=== PATIENT | male | born 1970 | race Hispanic/Latino ===

== ENCOUNTER 2020-05-19 10:50 | Emergency (ER) | payer OTHER ==
--- OUTSIDE RECORDS SUMMARY | 2020-05-19 11:36 | XMS REPORT | Summary of Care ---
:1970 Author Organization [facility] - [facility] Address [address] [place] [address] Care Team Providers Name Role Phone Ravindra Hua Primary Care Provider Encounter Details Date Type Department Care Team Description 05/06/2020 Letter (Out) [facility] unamia Message s Doctor Unassigned, No 301 [facility] [place] [address] [address] [facility] [phone] [place] [address] Allergies No Known Allergiesdocumented as of this encounter (statuses as of 05/06/2020) Medications Medication Sig Dispensed Refills Start Date End Date Status omeprazole (PRILOSEC) Take 1 Cap by 30 Cap 0 09/24/2015 Active 20 mg capsule mouth daily. metFORMIN (GLUCOPHAGE) 0 10/27/2015 Active 500 mg tablet lisinopril 0 10/27/2015 Active (PRINIVIL,ZESTRIL) 5 mg tablet atorvastatin (LIPITOR) 0 10/27/2015 Active 10 mg tablet acetaminophen-codeine 0 10/27/2015 Active (TYLENOL #3) 300-30 mg tablet azithromycin (ZITHROMAX Take 500 mg day 6 tablet 0 04/25/2017 Active Z-AP) 250 mg 1, then 250 mg tabletIndications: days 2 to 5. Acute maxillary sinusitis, recurrence not specified fluticasone (FLONASE) Use 2 Sprays in 16 g 0 04/25/2017 Active 50 mcg/actuation nasal each nostril sprayIndications: Acute daily. maxillary sinusitis, recurrence not specified documented as of this encounter (statuses as of 05/06/2020) Active Problems Problem Noted Date Left knee pain 10/29/2015 documented as of this encounter (statuses as of 05/06/2020) Social History Tobacco Use Types Packs/Day Years Used Date Never Smoker Smokeless Tobacco: Never Used Alcohol Use Drinks/Week oz/Week Comments Not Asked 0 Standard drinks or equivalent 0.0 Sex Assigned at Date Recorded Not on file documented as of this encounter Last Filed Vital Signs Not on filedocumented in this encounter Plan of Treatment Not on filedocumented as of this encounter Results Not on filedocumented in this encounter Insurance Payer Benefit Plan Subscriber ID Effective Dates Phone Address Type / Group [facility] [id number] 2018-Neel [phone] [address] PPO/POS [place] - OUT OF t 87 [id number] [place] [address] AETNA AETNA O [id number] 2015-Neel O t documented as of this encounter
--- OUTSIDE RECORDS SUMMARY | 2020-05-19 11:36 | XMS REPORT | Summary of Care ---
:1970 Author Organization [facility] - [facility] Address [address] [place] [address] Care Team Providers Name Role Phone Ravindra Hua Primary Care Provider Reason for Visit Reason Comments LAB covid testing- no symptoms Encounter Details Date Type Department Care Team Description 05/06/2020 Laboratory [address] [facility] Family NicoleMaura hernandez PA [address] [place] [address] [place] [address] Exposure to Medicine - [facility], Ad[facility] Fam Pob I SARS-associated [address] [place] [address] coronaviru s ([address] Dx) [place] [address] Allergies No Known Allergiesdocumented as of this [...] Assigned at Date Recorded Not on file COVID-19 Exposure Response Date Recorded In the last month, have you been in contact with No / Unsure 05/06/2020 1:46 PM CDT someone who was confirmed or suspected to have Coronavirus / COVID-19? documented as of this encounter Last Filed Vital Signs Not on filedocumented in this encounter Nursing Notes Alondra Coelho MA - 05/06/2020 1:20 PM CDTMedison Merino is a 49 year old male here for COVID Screening with a Nasopharyngeal Swab All droplet and contact precautions taken with appropriate PPE worn while interacting with patient. ? Goggles ? N95 Mask ? Gloves ? Gown Patient educated on plan of care for visit, swabbing technique, risks and benefits of test and length of time to receive results. Verbal consent obtained to perform test. CDC Fact Sheet for Patients nCoV Diagnostic Panel dated 10/06/2019 and Factsheet What to Do if Sick with COVID 19 09/16/19 provided. Patient swabbed per appropriate nasopharyngeal technique, and patient tolerated well. Patient was discharged from the testing clinic in stable condition. Alondra Mauro MA 05/06/2020 1:47 PM Bilate nares swabbed during COVID19 nasopharyngeal swab. documented in this encounter Plan of Treatment Name Type Priority Associated Diagnoses Order S chedule COVID-19 (PCR MOLECULAR LAB Routine Exposure to Expe cted: 05/06/2020, TESTING) SARS-associated Expires: coronavirus documented as of this encounter Results Not on filedocumented in this encounter Visit Diagnoses Diagnosis Exposure to SARS-associated coronavirus - Primary documented in this encounter Additional Health Concerns Infection Onset Date Last Indicated Resolved Time COVID-19 Rule Out 05/06/2020 05/06/2020 documented as of this encounter Insurance Payer Benefit Plan Subscriber ID Effective Dates Phone Address Type / Group [facility] [id number] 2018-Neel [phone] [address] PPO/POS [place] - OUT OF t 87 [id number] [place] [address] documented as of this encounter
--- OUTSIDE RECORDS SUMMARY | 2020-05-19 11:36 | XMS REPORT | Continuity of Care Document ---
:1970 Author Organization [facility] t Address [address] [place] [address] Care Team Providers Name Role Phone Lab, [facility] Fam Pob I Attending Clinician Unavailable Doctor Unassigned, Name Attending Clinician Unavailable Problems This patient has no known problems. Allergies, Adverse Reactions, Alerts This patient has no known allergies or adverse reactions. Medications This patient has no known medications. Procedures This patient has no known procedures. Encounters Start End Encounter Admission Attending Care Care Encounter Source Date/Time Date/Time Type Type Clinicians Facility Department ID 2020-05-06 2020-05-06 Laboratory Lab, [facility] [id number] 13:29:21 13:49:21 Only Fam Pob I Health [id number] [place] [id number] Professio [phone] [address]al [address] 2020-05-06 2020-05-06 Letter Doctor TAWANA [id number] 00:00:00 00:00:00 (Out) UnassignedPHILIP [id number] [place] [facility] [phone] [phone] Results This patient has no known results.
[2020-05-19] MEDS ORDERED: LIDOCAINE 1% MPF 5 ML VIAL ONE (12:48)
[2020-05-19] MEDS ORDERED: BUPIVACAINE 0.5% PF 10 ML VIAL ONE (12:48)
[2020-05-19] MEDS ORDERED: CEPHALEXIN 250 MG CAP ONE (12:48)
[2020-05-19] MEDS ORDERED: NA CHLORIDE 0.9% 500 ML ONE (12:48)
[2020-05-19] MEDS ORDERED: CEFAZOLIN/SWI 1gm 1 GM/10 ML SYR ONE (12:49)
[2020-05-19] MEDS ORDERED: TETANUS & DIPHTHERIA TOX,ADULT 0.5 ML VIAL ONE (12:49)
--- NOTE | 2020-05-19 12:56 | RAD REPORT ---
EXAM DESCRIPTION: RAD - Hand Right 3 View - 05/19/2020 11:46 am CLINICAL HISTORY: DEFORMITY, blunt force trauma distal third digit COMPARISON: No comparisons FINDINGS: Comminuted fracture of the distal phalanx third digit. There is a transverse fracture at t he tuft with a longitudinal fracture extending to near the articular surface. No distraction or angul ation deformity. The DIP joint shows no acute finding. There is flexion at the DIP joint and extension at the PIP joint of the third digit more pronounced t fan seen at the other fingers. A flexor tendon injury cannot be excluded. Elsewhere no acute bone or joint finding identifiable. IMPRESSION: Comminuted fracture of the distal phalanx third digit right hand. Flexion and extension configuration of the third digit suggests flexor tendon injury
--- NOTE | 2020-05-19 13:59 | EDPHYS ---
Physician Documentation [facility] Name: Jagdeep Sparks Jr Age: 49 yrs Sex: Male : 1970 Arrival Date: 05/19/2020 Time: 10:51 Bed 13 Private MD: ED Physician Demarco Bridges HPI: 05/19 13:48 This 49 yrs old Male presents to ER via Ambulatory with complaints of Finger paloma Injury, Crush Injury. 13:48 Trauma demographics: County: The injury occurred in [place]. Mechanism of injury: paloma Crush injury:. Associated injuries: The patient sustained decreased range of motion, laceration, 1 cm(s), obvious fracture, painful injury, swelling. Onset: The symptoms/episode began/occurred just prior to arrival. The patient has not experienced similar symptoms in the past. Historical: - Allergies: 11:38 No Known Allergies; bp - Home Meds: 11:38 Metformin Oral [Active]; losartan oral oral [Active]; bp - PMHx: 11:38 Diabetes - NIDDM; High Cholesterol; bp - Immunization history:: Adult Immunizations unknown. - Social history:: Smoking status: Patient denies any tobacco usage or history of. - Family history:: not pertinent. ROS: 13:48 Constitutional: Negative for fever, chills, and weight loss, Eyes: Negative for injury, paloma pain, redness, and discharge, ENT: Negative for injury, pain, and discharge, Neck: Negative for injury, pain, and swelling, Cardiovascular: Negative for chest pain, palpitations, and edema, Respiratory: Negative for shortness of breath, cough, wheezing, and pleuritic chest pain, Abdomen/GI: Negative for abdominal pain, nausea, vomiting, diarrhea, and constipation, Back: Negative for injury and pain, : Negative for injury, bleeding, discharge, and swelling, Skin: Negative for injury, rash, and discoloration, Neuro: Negative for headache, weakness, numbness, tingling, and seizure, Psych: Negative for depression, anxiety, suicide ideation, homicidal ideation, and hallucinations, Allergy/Immunology: Negative for hives, rash, and allergies, Endocrine: Negative for neck swelling, polydipsia, polyuria, polyphagia, and marked weight changes, Hematologic/Lymphatic: Negative for swollen nodes, abnormal bleeding, and unusual bruising. 13:48 MS/extremity: Positive for decreased range of motion, laceration, pain, swelling, tenderness, of the dorsal aspect of distal phalanx of right middle finger, palmar aspect of distal phalanx of right middle finger and right middle fingernail. Exam: 13:48 Constitutional: This is a well developed, well nourished patient who is awake, alert, paloma and in no acute distress. Head/Face: Normocephalic, atraumatic. Eyes: Pupils equal round and reactive to light, extra-ocular motions intact. Lids and lashes normal. Conjunctiva and sclera are non-icteric and not injected. Cornea within normal limits. Periorbital areas with no swelling, redness, or edema. ENT: Nares patent. No nasal discharge, no septal abnormalities noted. Tympanic membranes are normal and external auditory canals are clear. Oropharynx with no redness, swelling, or masses, exudates, or evidence of obstruction, uvula midline. Mucous membranes moist. Neck: Trachea midline, no thyromegaly or masses palpated, and no cervical lymphadenopathy. Supple, full range of motion without nuchal rigidity, or vertebral point tenderness. No Meningismus. Chest/axilla: Normal chest wall appearance and motion. Nontender with no deformity. No lesions are appreciated. Cardiovascular: Regular rate and rhythm with a normal S1 and S2. No gallops, murmurs, or rubs. Normal PMI, no JVD. No pulse deficits. Respiratory: Lungs have equal breath sounds bilaterally, clear to auscultation and percussion. No rales, rhonchi or wheezes noted. No increased work of breathing, no retractions or nasal flaring. Abdomen/GI: Soft, non-tender, with normal bowel sounds. No distension or tympany. No guarding or rebound. No evidence of tenderness throughout. Back: No spinal tenderness. No costovertebral tenderness. Full range of motion. Male : Normal genitalia with no discharge or lesions. Skin: Warm, dry with normal turgor. Normal color with no rashes, no lesions, and no evidence of cellulitis. Neuro: Awake and alert, GCS 15, oriented to person, place, time, and situation. Cranial nerves II-XII grossly intact. Motor strength 5/5 in all extremities. Sensory grossly intact. Cerebellar exam normal. Normal gait. Psych: Awake, alert, with orientation to person, place and time. Behavior, mood, and affect are within normal limits. 13:48 Musculoskeletal/extremity: Extremities: grossly normal except: decreased ROM, laceration, pain, tenderness, ROM: full active range of motion, full passive range of motion, Circulation is intact in all extremities. Sensation intact. Compartment Syndrome exam of affected extremity: is normal. Joints: All joints appear normal with full range of motion. Tendon exam: specific tendon testing normal through active and passive range of motion DVT Exam: No signs of deep vein thrombosis. no pain, no swelling, no tenderness, negative Homans' sign noted on exam, no appreciated bluish discoloration, no erythema, no increased warmth. Vital Signs: 11:20 BP 143 / 90; Pulse 61; Resp 16; Temp 98; Pulse Ox 100% ; bp 12:30 BP 131 / 85; Pulse 57; Resp 17; Pulse Ox 100% ; bp 13:27 BP 132 / 86; Pulse 66; Resp 16; Pulse Ox 100% ; bp 14:24 BP 130 / 84; Pulse 56; Resp 16; Temp 98; Pulse Ox 99% ; bp Procedures: 13:48 nail removed, nail bed secured with loop suture to pull through nail groove, figure 8 paloma to replace nail. Laceration: 13:48 Wound Repair of 1cm ( 0.4in ) subcutaneous laceration to right middle fingernail and paloma dorsal aspect of distal phalanx of right middle finger. Irregularly shaped.. Skin/tissue flap noted.. Distal neuro/vascular/tendon intact. Anesthesia: Digital block administered with 4 mls of 1% lidocaine, Digital block administered with 4 mls of 0.5% marcaine. Wound prep: Moderate cleansing with betadine by nv. Skin closed with 2 5-0 Prolene using interrupted sutures and sterile technique. Dressed with Neosporin, non-adherent dressing. Patient tolerated well. MDM: 12:12 Patient medically screened. [facility] 05/19 11:32 Order name: XRAY Hand RIGHT 3 View bp 05/19 12:57 Order name: RAD EDTX 05/19 12:14 Order name: Vicryl, Sutures; Complete Time: 12:48 [facility] 05/19 12:14 Order name: Prolene, Sutures; Complete Time: 12:48 [facility] 05/19 12:14 Order name: Dressing - Wound; Complete Time: 12:37 [facility] 05/19 12:14 Order name: Gloves, Sterile; Complete Time: 12:36 [facility] 05/19 12:14 Order name: Setup Suture Tray; Complete Time: 12:36 [facility] Administered Medications: 12:30 Drug: NS 0.9% 500 ml Route: IV; Rate: bolus; Site: left antecubital; bp 14:26 Follow up: IV Status: Completed infusion; IV Intake: 500ml bp 12:30 Drug: Ancef 1 grams Route: IVPB; Site: left antecubital; bp 14:26 Follow up: IV Status: Completed infusion; IV Intake: 50ml bp 12:30 Drug: KeFLEX 500 mg Route: PO; bp 14:05 Follow up: Response: No adverse reaction bp 12:30 Drug: Tetanus-Diphtheria Toxoid Adult 0.5 ml {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 Exp: 10/04/2021. Lot #: [id number]. } Route: IM; Site: right deltoid; 14:05 Follow up: Response: No adverse reaction bp 12:30 Drug: Bupivacaine (0.5 %) 5 ml {Note: at b/s.} Volume: 10 ml; Route: Infiltration; bp 12:30 Drug: Lidocaine (1 %) 5 ml Volume: 5 ml; Route: Infiltration; bp 14:05 Drug: Neosporin Ointment 1 application Route: Topical; Site: affected area; bp Disposition: 05/19/20 13:58 Discharged to Home. Impression: Laceration without foreign body of left middle finger with damage to nail, Displaced fracture of distal phalanx of right middle finger, Type 2 diabetes mellitus. - Condition is Stable. - Discharge Instructions: Type 2 Diabetes Mellitus, Diagnosis, Adult, Traumatic Finger Amputation, Finger Fracture, Fingernail or Toenail Removal, Adult, Finger Fracture, [id number], Type 2 Diabetes Mellitus, Diagnosis, Adult, [id number]. - Prescriptions for Keflex 500 mg Oral Capsule - take 1 capsule by ORAL route every 6 hours for 10 days; 40 capsule. Tylenol- Codeine #3 300-30 mg Oral Tablet - take 2 tablet by ORAL route every 6 hours As needed; 30 tablet. - Medication Reconciliation Form, Thank You Letter, Antibiotic Education, Prescription Opioid Use, Work release form form. - Follow up: Private Physician; When: 2 - 3 days; Reason: Recheck today's complaints, Continuance of care, Re-evaluation by your physician. Follow up: Rajiv Arce MD; When: 2 - 3 days; Reason: Recheck today's complaints, Re-evaluation by your physician. - Problem is new. - Symptoms have improved. Signatures: Dispatcher [employer] EDMS Demarco Bridges MD MD cha Peltier, Brian RN RN bp Corrections: (The following items were deleted from the chart) 14:00 13:58 05/19/2020 13:58 Discharged to Home. Impression: Laceration without foreign body paloma of left middle finger with damage to nail; Displaced fracture of distal phalanx of right middle finger. Condition is Stable. Forms are Medication Reconciliation Form, Thank You Letter, Antibiotic Education, Prescription Opioid Use. Follow up: Private Physician; When: 2 - 3 days; Reason: Recheck today's complaints, Continuance of care, Re-evaluation by your physician. Follow up: Rajiv Arce; When: 2 - 3 days; Reason: Recheck today's complaints, Re-evaluation by your physician. Problem is new. Symptoms have improved. [facility] 14:27 14:00 05/19/2020 13:58 Discharged to Home. Impression: Laceration without foreign body bp of left middle finger with damage to nail; Displaced fracture of distal phalanx of right middle finger; Type 2 diabetes mellitus. Condition is Stable. Discharge Instructions: Traumatic Finger Amputation, Finger Fracture, Fingernail or Toenail Removal, Adult, Finger Fracture, [id number]. Prescriptions for Keflex 500 mg Oral Capsule - take 1 capsule by ORAL route every 6 hours for 10 days; 40 capsule, Tylenol-Codeine #3 300-30 mg Oral Tablet - take 2 tablet by ORAL route every 6 hours As needed; 30 tablet. and Forms are Medication Reconciliation Form, Thank You Letter, Antibiotic Education, Prescription Opioid Use. Follow up: Private Physician; When: 2 - 3 days; Reason: Recheck today's complaints, Continuance of care, Re-evaluation by your physician. Follow up: Rajiv Arce; When: 2 - 3 days; Reason: Recheck today's complaints, Re-evaluation by your physician. Problem is new. Symptoms have improved. paloma
--- NOTE | 2020-05-19 13:59 | ER ---
Nurse's Notes [facility] Name: Jagdeep Sparks Jr Age: 49 yrs Sex: Male : 1970 Arrival Date: 05/19/2020 Time: 10:51 Bed 13 Private MD: Diagnosis: Laceration without foreign body of left middle finger with damage to nail;Displaced fracture of distal phalanx of right middle finger;Type 2 diabetes mellitus Presentation: 05/19 11:20 Chief complaint: Patient states: CRUSH INJURY TO RIGHT 3RD FINGER, DISTAL PHALANGE. bp Coronavirus screen: At this time, the client does not indicate any symptoms associated with coronavirus-19. Ebola Screen: No symptoms or risks identified at this time. Initial Sepsis Screen: Does the patient meet any 2 criteria? No. Patient's initial sepsis screen is negative. Does the patient have a suspected source of infection? No. Patient's initial sepsis screen is negative. Risk Assessment: Do you want to hurt yourself or someone else? Patient reports no desire to harm self or others. Onset of symptoms was May 19, 2020 at 10:10. 11:20 Method Of Arrival: Ambulatory bp 11:20 Acuity: RACHID 3 bp Triage Assessment: 11:20 General: Appears in no apparent distress. uncomfortable, Behavior is cooperative, bp appropriate for age, anxious. Pain: Complains of pain in right middle finger. EENT: No deficits noted. Neuro: Level of Consciousness is awake, alert, obeys commands, Oriented to Appropriate for age. Cardiovascular: No deficits noted. Respiratory: No deficits noted. GI: No signs and/or symptoms were reported involving the gastrointestinal system. : No signs and/or symptoms were reported regarding the genitourinary system. Derm: No deficits noted. Musculoskeletal: Circulation, motion, and sensation intact. Range of motion: intact in all extremities. Injury Description: Crush injury sustained to right middle finger. Historical: - Allergies: 11:38 No Known Allergies; bp - Home Meds: 11:38 Metformin Oral [Active]; losartan oral oral [Active]; bp - PMHx: 11:38 Diabetes - NIDDM; High Cholesterol; bp - Immunization history:: Adult Immunizations unknown. - Social history:: Smoking status: Patient denies any tobacco usage or history of. - Family history:: not pertinent. Screenin:44 Abuse screen: Denies threats or abuse. Denies injuries from another. Nutritional bp screening: No deficits noted. Tuberculosis screening: No symptoms or risk factors identified. Fall Risk None identified. Assessment: 10:20 General: SEE TRIAGE NOTE. bp 12:30 Reassessment: SALINE DRESSING IN PLACE, LAC SETUP AT B/S FOR REPAIR. bp 13:27 Reassessment: ATTENDING AT B/S FOR WOUND REPAIR. bp 14:24 Reassessment: PT D/C HOME AMBULATORY, DX WITH LEFT MIDDLE FINGER LACERATION. bp Vital Signs: 11:20 BP 143 / 90; Pulse 61; Resp 16; Temp 98; Pulse Ox 100% ; bp 12:30 BP 131 / 85; Pulse 57; Resp 17; Pulse Ox 100% ; bp 13:27 BP 132 / 86; Pulse 66; Resp 16; Pulse Ox 100% ; bp 14:24 BP 130 / 84; Pulse 56; Resp 16; Temp 98; Pulse Ox 99% ; bp ED Course: 10:51 Patient arrived in ED. ag5 11:28 Ravindra Philip, RN is Primary Nurse. bp 11:37 Triage completed. bp 11:42 Arm band placed on. bp 11:44 Patient has correct armband on for positive identification. Bed in low position. Call bp light in reach. Side rails up X2. 12:12 Demarco Bridges MD is Attending Physician. paloma 12:15 Inserted saline lock: 22 gauge in left antecubital area, using aseptic technique. bp 13:55 Rajiv Arce MD is Referral Physician. paloma 14:00 Assist provider with laceration repair on right middle finger that was 2.5 cm. or less bp using sutures. Set up tray. Performed by Demarco Bridges MD Dressed with Xeroform, Patient tolerated well. 14:25 IV discontinued, intact, bleeding controlled, No redness/swelling at site. Pressure bp dressing applied. 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 Exp: bp 10/04/2021. Lot #: [id number]. } Route: IM; Site: right deltoid; 14:05 Follow up: Response: No adverse reaction bp 12:30 Drug: Bupivacaine (0.5 %) 5 ml {Note: at b/s.} Volume: 10 ml; Route: Infiltration; bp 12:30 Drug: Lidocaine (1 %) 5 ml Volume: 5 ml; Route: Infiltration; bp 14:05 Drug: Neosporin Ointment 1 application Route: Topical; Site: affected area; bp Intake: 14:26 IV: 50ml; Total: 50ml. bp 14:26 IV: 500ml; Total: 550ml. bp Outcome: 13:58 Discharge ordered by . paloma 14:25 Discharged to home ambulatory. bp 14:25 Condition: stable 14:25 Discharge instructions given to patient, Instructed on discharge instructions, follow up and referral plans. medication usage, wound care, Demonstrated understanding of instructions, follow-up care, medications, wound care, Prescriptions given X 2. 14:27 Patient left the ED. bp Signatures: Demarco Bridges MD MD cha Peltier, Brian, RN RN Jonathan Riojas ag5 Corrections: (The following items were deleted from the chart) 11:44 10:20 General: SEE TRIAGE NOTE. bp bp
[2020-05-19 15:28] VITALS: TEMP 98
[2020-05-19 15:34] VITALS: BP 130/84; O2SAT 99
== END 2020-05-19 14:27 | disposition home or self-care (01) ==
LOC: ER 10:50
PROC: 0JQJ0ZZ Repair Right Hand Subcutaneous Tissue and Fascia, Open Approach (ICD-10-PCS; principal; 2020-05-19)
PROC: 0HTQXZZ Resection of Finger Nail, External Approach (ICD-10-PCS; 2020-05-19)
DX: S62.632A Displaced fracture of distal phalanx of right middle finger, initial encounter for closed fracture (principal); X58.XXXA Exposure to other specified factors, initial encounter; Y93.9 Activity, unspecified; Y92.89 Other specified places as the place of occurrence of the external cause; Z23 Encounter for immunization; E11.9 Type 2 diabetes mellitus without complications; E78.00 Pure hypercholesterolemia, unspecified
CPT/HCPCS: 90471; 90714; 96365; 96366; 99284; J0690; J7040

== ENCOUNTER 2020-06-03 09:15 | Emergency (ER) | payer BC, OTHER ==
[2020-06-03 10:02] LABS: Absolute Lymphocytes (CBC) 1.5 K/uL (0.7-4.9); Basophils % 0.6 % (0-1.3); Hematocrit 43.9 % (39.6-49.0); Lymphocytes % 28.8 % (15.3-44.8); MPV 8.7 fL (7.6-11.3); RBC Red Blood Cell Count 4.73 M/uL (4.33-5.43)
--- OUTSIDE RECORDS SUMMARY | 2020-06-03 10:18 | XMS REPORT | Summary of Care ---
:1970 Author Organization [facility] Address [address] [place] [address] Care Team Providers Name Role Phone Ravindra Hua Primary Care Provider Encounter Details Date Type Department Care Team Description 05/06/2020 Letter (Out) [facility] [employer] Message s Doctor Unassigned, No 301 [facility] [place] [address] [address] [facility] [phone] [place] [address] Allergies No Known Allergiesdocumented as of this [...] Effective Dates Phone Address Type / Group [facility] [id number] 2018-Neel [phone] [address] PPO/POS [place] - OUT OF t 87 [id number] [place] [address] AETNA AETNA O [id number] 2015-Neel O t documented as of this encounter
--- OUTSIDE RECORDS SUMMARY | 2020-06-03 10:18 | XMS REPORT | Continuity of Care Document ---
:1970 Author Organization [facility] t Address [address] [place] [address] Care Team Providers Name Role Phone Lab, Adc Fam Pob I Attending Clinician Unavailable Doctor [...] Facility Department ID 2020-05-06 2020-05-06 Laboratory Lab, [facility] [id number] 13:29:21 13:49:21 Only Fam Pob I Health [id number] [place] [id number] Professio [phone] nal [address] 2020-05-06 2020-05-06 Letter Doctor TAWANA [id number] 00:00:00 00:00:00 (Out) UnassignedPHILIP [id number] [place] [facility] [id number] [phone] 044 Results This patient has no known results.
--- OUTSIDE RECORDS SUMMARY | 2020-06-03 10:18 | XMS REPORT | Summary of Care ---
:1970 Author Organization [facility] Address [address] [place] [id number] Care Team Providers Name Role Phone Ravindra Hua Primary Care Provider Reason for Visit Reason Comments LAB covid testing- no symptoms Encounter Details Date Type Department Care Team Description 05/06/2020 Laboratory Only [facility] Family NicoleMaura hernandez PA [address] [place] [address] [place] [address] Exposure to Medicine - [place] [facility], Adc Fam Pob I SARS-associated [address] [place] [address] coronaviru s ([address] Dx) [place] [address] Allergies No Known Allergiesdocumented as [...] Phone Address Type / Group [employer] [facility] [id number] 2018-Neel [phone] [address] PPO/POS [place] - OUT OF t [id number] [place] [address] documented as of this encounter
[2020-06-03 10:19] LABS: ALT/SGPT 31 U/L (12-78); AST/SGOT 17 U/L (15-37); Albumin 4.1 g/dL (3.4-5.0); Alkaline Phosphatase 71 U/L (45-117); BUN Blood Urea Nitrogen 17 mg/dL (7-18); Bicarbonate 28 mmol/L (21-32); Bilirubin Direct 0.2 mg/dL (0-0.2); Bilirubin Total 0.7 mg/dL (0.2-1.0); Glucose Level 116 mg/dL (74-106); Lipase 111 U/L (73-393); Potassium 4.1 mmol/L (3.5-5.1); Protein, Total 7.8 g/dL (6.4-8.2); Sodium Level 139 mmol/L (136-145)
--- NOTE | 2020-06-03 10:32 | RAD REPORT ---
EXAM DESCRIPTION: CTAbdomen Pelvis W Contrast - 06/03/2020 10:14 am CLINICAL HISTORY: Abdominal pain. ABD PAIN COMPARISON: No comparisons TECHNIQUE: Biphasic CT imaging of the abdomen and pelvis was performed with 100 ml non-ionic IV cont rast. All CT scans are performed using dose optimization technique as appropriate and may include automated exposure control or mA/KV adjustment according to patient size. FINDINGS: 6 mm noncalcified pulmonary nodule is seen in the right lower lobe. Mild fatty liver infiltration pattern is seen. Tiny low-density hepatic lesion in the right lobe ante riorly measures 4 mm, too small to fully characterize but likely benign. The spleen, pancreas, adrena l glands and kidneys are within normal limits. No bowel obstruction, free air, free fluid or abscess. Subtle inflammatory changes surrounding the di stal descending colon seen in the left lower quadrant suggesting a very early/mild acute diverticulit is pattern. No abscess or other complication. The appendix is normal. No evidence of significant lym phadenopathy. No suspicious bony findings. IMPRESSION: Mild acute diverticulitis involving the distal descending colon is noted. No complicatio n is evident. 6 mm noncalcified nodule right lower lobe is nonspecific. Followup nonemergent CT chest assessment wo uld be advised.
--- NOTE | 2020-06-03 10:42 | ER ---
Nurse's Notes [facility] Name: Jagdeep Sparks Jr Age: 49 yrs Sex: Male : 1970 Arrival Date: 06/03/2020 Time: :[address] Private MD: Diagnosis: Acute Diverticulitis Presentation: 06/03 09:27 Chief complaint: Lower abdominal pain and diarrhea x 2 days. Coronavirus screen: Client hb presents with at least one sign or symptom that may indicate coronavirus-19. Standard/surgical mask placed on the client. Provider contacted for isolation considerations. Ebola Screen: No symptoms or risks identified at this time. Initial Sepsis Screen: Does the patient meet any 2 criteria? No. Patient's initial sepsis screen is negative. Does the patient have a suspected source of infection? No. Patient's initial sepsis screen is negative. Risk Assessment: Do you want to hurt yourself or someone else? Patient reports no desire to harm self or others. Onset of symptoms was June 02, 2020. 09:27 Method Of Arrival: Ambulatory hb 09:27 Acuity: RACHID 3 hb Historical: - Allergies: :28 No Known Allergies; hb - Home Meds: :28 losartan Oral [Active]; Metformin Oral [Active]; hb - PMHx: :28 Diabetes - NIDDM; High Cholesterol; hb - PSHx: :28 None; hb - Immunization history:: Adult Immunizations up to date. - Social history:: Smoking status: Patient denies any tobacco usage or history of. Screenin:07 Abuse screen: Denies threats or abuse. Nutritional screening: No deficits noted. ll1 Tuberculosis screening: No symptoms or risk factors identified. Fall Risk IV access (20 points). Total Guo Fall Scale indicates No Risk (0-24 pts). Assessment: 10:06 General: Appears in no apparent distress. Behavior is calm, cooperative. Pain: ll1 Complains of pain in lower abdomen Quality of pain is described as aching. Neuro: No deficits noted. Cardiovascular: No deficits noted. Respiratory: No deficits noted. GI: Abdomen is flat, Bowel sounds present X 4 quads. Abd is soft and non tender X 4 quads. Reports lower abdominal pain, diarrhea. 11:07 Reassessment: Patient and/or family updated on plan of care and expected duration. Pain ll1 level reassessed. Vital Signs: 09:27 BP 144 / 88; Pulse 65; Resp 16; Temp 97.8; Pulse Ox 100% on R/A; Weight 97.98 kg; hb Height 6 ft. (182.88 cm); Pain 8/10; 11:07 BP 123 / 75; Pulse 58; Resp 16; Pulse Ox 100% ; Pain 0/10; ll1 09:27 Body Mass Index 29.29 (97.98 kg, 182.88 cm) hb ED Course: 09:19 Patient arrived in ED. ds1 09:25 Guilherme Kimball PA is PHCP. jmm 09:25 Demarco Bridges MD is Attending Physician. jmm 09:28 Triage completed. hb 09:28 Arm band placed on. hb 09:51 Syd Clay RN is Primary Nurse. ll1 09:52 Inserted saline lock: 20 gauge in right antecubital area, using aseptic technique. hb Blood collected. 10:[address] via wheelchair. jg6 10:08 Patient has correct armband on for positive identification. Bed in low position. Call ll1 light in reach. Side rails up X 1. Pulse ox on. NIBP on. 10:13 CT Abd/Pelvis - IV Contrast Only In Process Unspecified. EDMS 10:14 CT completed. Patient tolerated procedure well. Patient moved to CT via wheelchair. jg6 Patient moved back from CT. 11:07 IV discontinued, intact, bleeding controlled, No redness/swelling at site. Pressure ll1 dressing applied. 11:08 No provider procedures requiring assistance completed. ll1 Administered Medications: No medications were administered Outcome: 10:41 Discharge ordered by . scottie 11:08 Discharged to home ambulatory. ll1 11:08 Condition: stable 11:08 Discharge instructions given to patient, Instructed on discharge instructions, follow up and referral plans. medication usage, Demonstrated understanding of instructions, follow-up care, medications, Prescriptions given X 3. 11:08 Patient left the ED. ll1 Signatures: Dispatcher [employer] EDMS Guilherme Kimball PA PA jmm Sanford, Demi ds1 Khadra Win RN RN John Christa jg6 Syd Clay, TIFFANY ALLEN [facility]
--- NOTE | 2020-06-03 10:42 | EDPHYS ---
Physician Documentation [facility] Name: Jagdeep Sparks Jr Age: 49 yrs Sex: Male : 1970 Arrival Date: 06/03/2020 Time: 09:[address] Private MD: ED Physician Demarco Bridges HPI: 06/03 09:44 This 49 yrs old Male presents to ER via Ambulatory with complaints of jmm Abdominal Pain. 09:44 The patient presents with abdominal pain in the lower abdomen. Onset: The jmm symptoms/episode began/occurred gradually, 2 day(s) ago. The symptoms do not radiate. Associated signs and symptoms: Pertinent positives: testicular pain, Pertinent negatives: fever. The symptoms are described as achy. This is a 49 year old male with a history of DM, HLP that presents to the ED with complaints of lower abdominal pain beginning this past Monday. Patient states yesterday he noticed scrotal swelling which has now resolved. Pain is mainly located in the suprapubic region but with radiate to the right lower and left lower quadrants of his abdomen. Denies vomiting. Has had some episodes of diarrhea. . Historical: - Allergies: : No Known Allergies; hb - Home Meds: : losartan Oral [Active]; Metformin Oral [Active]; hb - PMHx: : Diabetes - NIDDM; High Cholesterol; hb - PSHx: : None; hb - Immunization history:: Adult Immunizations up to date. - Social history:: Smoking status: Patient denies any tobacco usage or history of. ROS: 09:44 Constitutional: Negative for fever, chills, and weight loss, Cardiovascular: Negative jmm for chest pain, palpitations, and edema, Respiratory: Negative for shortness of breath, cough, wheezing, and pleuritic chest pain. 09:44 Abdomen/GI: Positive for abdominal pain, diarrhea. 09:44 All other systems are negative. Exam: :44 Constitutional: This is a well developed, well nourished patient who is awake, alert, jmm and in no acute distress. Head/Face: atraumatic. Eyes: EOMI, no conjunctival erythema appreciated ENT: Moist Mucus Membranes Neck: Trachea midline, Supple Chest/axilla: Normal chest wall appearance and motion. Cardiovascular: Regular rate and rhythm. No edema appreciated Respiratory: Normal respirations, no respiratory distress appreciated 09:44 Abdomen/GI: Inspection: abdomen appears normal, Bowel sounds: normal, Palpation: soft, mild abdominal tenderness, in the suprapubic area. 09:44 : Male external genitalia: normal. 09:44 Musculoskeletal/extremity: ROM: intact in all extremities. 09:44 Skin: Appearance: Color: normal in color. 09:44 Neuro: Orientation: is normal, Mentation: is normal, Memory: is normal. 09:44 Psych: Behavior/mood is pleasant, cooperative. Vital Signs: 09:27 BP 144 / 88; Pulse 65; Resp 16; Temp 97.8; Pulse Ox 100% on R/A; Weight 97.98 kg; hb Height 6 ft. (182.88 cm); Pain 8/10; 11:07 BP 123 / 75; Pulse 58; Resp 16; Pulse Ox 100% ; Pain 0/10; ll1 09:27 Body Mass Index 29.29 (97.98 kg, 182.88 cm) hb MDM: 09:38 Patient medically screened. [place] 10:40 Data reviewed: vital signs, nurses notes. Counseling: I had a detailed discussion with scottie the patient and/or guardian regarding: the historical points, exam findings, and any diagnostic results supporting the discharge/admit diagnosis, lab results, radiology results, the need for outpatient follow up, to return to the emergency department if symptoms worsen or persist or if there are any questions or concerns that arise at home. ED course: Patient is alert and non toxic in appearance in the ED. Patient is advised to follow up with pcp and otherwise given strict return precautions. Patient understood and agrees with the plan of care. . 06/03 09:44 Order name: Basic Metabolic Panel; Complete Time: 10:24 [facility] 06/03 09:44 Order name: CBC with Diff; Complete Time: 10:06 [facility] 06/03 09:44 Order name: Hepatic Function; Complete Time: 10:24 [facility] 06/03 09:44 Order name: Lipase; Complete Time: 10:24 [facility] 06/03 09:44 Order name: IV Saline Lock; Complete Time: 11:07 [facility] 06/03 09:44 Order name: CT Abd/Pelvis - IV Contrast Only; Complete Time: 10:39 [facility] 06/03 09:44 Order name: Labs collected and sent; Complete Time: 11:07 rupal Administered Medications: No medications were administered Disposition: 06/04 05:29 Co-signature as Attending Physician, Demarco Bridges MD I agree with the assessment and [facility] plan of care. Disposition: 06/03/20 10:41 Discharged to Home. Impression: Acute Diverticulitis. - Condition is Stable. - Discharge Instructions: Diverticulitis. - Prescriptions for Cipro 500 mg Oral Tablet - take 1 tablet by ORAL route every 12 hours for 10 days; 20 tablet. Flagyl 500 mg Oral Tablet - take 1 tablet by ORAL route every 6 hours for 10 days; 40 tablet. Ultracet 37.5- 325 mg Oral Tablet - take 1 tablet by ORAL route every 6 hours - for up to 5 days; do not exceed 8 tablets per day.; 20 tablet. - Medication Reconciliation Form, Thank You Letter, Antibiotic Education, Prescription Opioid Use form. - Follow up: Private Physician; When: 2 - 3 days; Reason: Recheck today's complaints, Continuance of care, Re-evaluation by your physician. Signatures: Dispatcher [employer] EDDemarco Hammond MD MD cha Mickail, Joel, PA PA Khadra Donis, RN RN Syd Wilde RN RN ll1 Corrections: (The following items were deleted from the chart) 06/03 11:07 09:44 Urine Dipstick-Ancillary ordered. [facility] ll1 11:08 10:41 06/03/2020 10:41 Discharged to Home. Impression: Acute Diverticulitis. Condition ll1 is Stable. Forms are Medication Reconciliation Form, Thank You Letter, Antibiotic Education, Prescription Opioid Use. Follow up: Private Physician; When: 2 - 3 days; Reason: Recheck today's complaints, Continuance of care, Re-evaluation by your physician. [facility]
[2020-06-03 12:52] VITALS: TEMP 97.8; O2SAT 100
[2020-06-03 12:54] VITALS: BP 123/75
== END 2020-06-03 11:08 | disposition home or self-care (01) ==
LOC: ER 09:15
DX: K57.32 Diverticulitis of large intestine without perforation or abscess without bleeding (principal); E78.00 Pure hypercholesterolemia, unspecified; E11.9 Type 2 diabetes mellitus without complications
CPT/HCPCS: 85025; 80048; 36415; 82565; 80076; 83690; 74177; 99284; Q9967

== ENCOUNTER 2020-08-26 16:22 | Observation (INO) | payer BC ==
--- OUTSIDE RECORDS SUMMARY | 2020-08-26 16:31 | XMS REPORT | Continuity of Care Document ---
:1970 Author Organization [facility] t Address [address] [place] [address] Care Team Providers Name Role Phone Lab, [facility] Fam Pob I Attending Clinician Unavailable Doctor [...] Facility Department ID 2020-05-06 2020-05-06 Laboratory Lab, [facility] [id number] 13:29:21 13:49:21 Only Fam Pob I Health [id number] [place] [id number] Professio [phone] nal [address] 2020-05-06 2020-05-06 Letter Doctor TAWANA [id number] 00:00:00 00:00:00 (Out) UnassignedPHILIP [id number] [facility] [phone] 044 Results This patient has no known results.
[2020-08-26 18:55] LABS: Absolute Lymphocytes (CBC) 2.1 K/uL (0.7-4.9); Basophils % 0.9 % (0-1.3); Hematocrit 44.2 % (39.6-49.0); Lymphocytes % 33.5 % (15.3-44.8); MPV 8.7 fL (7.6-11.3); RBC Red Blood Cell Count 4.78 M/uL (4.33-5.43)
[2020-08-26 19:06] LABS: Protime INR 1.09
[2020-08-26 19:18] LABS: ALT/SGPT 25 U/L (12-78); AST/SGOT 12 U/L (15-37); Albumin 4.3 g/dL (3.4-5.0); Alkaline Phosphatase 81 U/L (45-117); BUN Blood Urea Nitrogen 18 mg/dL (7-18); Bicarbonate 31 mmol/L (21-32); Bilirubin Direct 0.1 mg/dL (0-0.2); Bilirubin Total 0.4 mg/dL (0.2-1.0); Glucose Level 99 mg/dL (74-106); Magnesium 2.3 mg/dL (1.8-2.4); NT PRO-BNP 37 pg/mL (<125); Potassium 3.9 mmol/L (3.5-5.1); Protein, Total 7.9 g/dL (6.4-8.2); Sodium Level 141 mmol/L (136-145); Troponin (Emerg Dept Use Only) < 0.02 ng/mL (0.0-0.045)
--- NOTE | 2020-08-26 20:04 | EDPHYS ---
Physician Documentation [facility] Name: Jagdeep Sparks Jr Age: 49 yrs Sex: Male : 1970 Arrival Date: 08/26/2020 Time: 16:24 Bed 26 Private MD: ED Physician Joni Arroyo HPI: 08/26 18:42 This 49 yrs old Male presents to ER via Ambulatory with complaints of Shoulder jmm Pain, Chest Discomfort. 18:42 The patient or guardian complains of pain. Onset: The symptoms/episode began/occurred jmm gradually, 4 day(s) ago. Modifying factors: the symptoms are alleviated by nothing. The symptoms are aggravated by nothing. Associated signs and symptoms: Pertinent negatives:. This is a 49 year old male with a history of HLP, DM, HTN that presents to the ED with complaints of substernal chest pain which began approx 4 days ago. Worse in the AM, improves throughout the day. patient d/c medications on Monday with some slight relief. . Historical: - Allergies: 16:36 No Known Allergies; ll1 - PMHx: 16:36 Diabetes - NIDDM; High Cholesterol; ll1 - PSHx: 16:36 knee sx; ll1 - Immunization history:: Flu vaccine is not up to date. - Social history:: Smoking status: Patient denies any tobacco usage or history of. ROS: 18:42 Eyes: Negative for injury, pain, redness, and discharge. jmm 18:42 Neck: Positive for 18:42 Neck: Positive for radiated pain. 18:42 Cardiovascular: Positive for chest pain. 18:42 All other systems are negative. Exam: 18:42 Constitutional: This is a well developed, well nourished patient who is awake, alert, jmm and in no acute distress. Head/Face: atraumatic. Eyes: EOMI, no conjunctival erythema appreciated ENT: Moist Mucus Membranes Neck: Trachea midline, Supple Chest/axilla: Normal chest wall appearance and motion. Cardiovascular: Regular rate and rhythm. No edema appreciated Respiratory: Normal respirations, no respiratory distress appreciated Abdomen/GI: Non distended, soft Back: Normal ROM Skin: General appearance color normal MS/ Extremity: Moves all extremities, no obvious deformities appreciated, no edema noted to the lower extremities Neuro: Awake and alert, normal gait Psych: Behavior is normal, Mood is normal, Patient is cooperative and pleasant Vital Signs: 16:32 BP 139 / 100; Pulse 72; Resp 17; Temp 98.0; Pulse Ox 99% ; Weight 98.43 kg; Height 6 ll1 ft. 0 in. (182.88 cm); Pain 2/10; 18:30 BP 118 / 90 [place] (auto/reg); Pulse 61; Resp 13 S; Temp 98.0(O); Pulse Ox 100% on R/A; jp3 Pain 0/10; 20:21 BP 133 / 87; Pulse 62; Resp 14; Pulse Ox 100% on R/A; vg1 16:32 Body Mass Index 29.43 (98.43 kg, 182.88 cm) ll1 MDM: 19:06 Patient medically screened. [facility] 20:03 Data reviewed: vital signs, nurses notes. Counseling: I had a detailed discussion with scottie the patient and/or guardian regarding: the historical points, exam findings, and any diagnostic results supporting the discharge/admit diagnosis, lab results, radiology results, the need for further work-up and treatment in the hospital. ED course: I discussed the patient with Xander Corado whom accepted the patient to Dr. Get dan. 08/26 18:42 Order name: Basic Metabolic Panel; Complete Time: 19:27 [facility] 08/26 18:42 Order name: CBC with Diff; Complete Time: 19:06 [facility] 08/26 18:42 Order name: LFT's; Complete Time: 19:27 [facility] 08/26 18:42 Order name: Magnesium; Complete Time: 19:27 [facility] 08/26 18:42 Order name: NT PRO-BNP; Complete Time: 19:27 [facility] 08/26 18:42 Order name: PT-INR; Complete Time: 19:27 [facility] 08/26 18:42 Order name: Troponin (emerg Dept Use Only); Complete Time: 19:27 [facility] 08/26 18:42 Order name: XRAY Chest (1 view); Complete Time: 20:34 [facility] 08/26 18:42 Order name: EKG; Complete Time: 18:43 [facility] 08/26 21:26 Order name: COVID-19 : Document "Date of Symptom Onset" if Symptomatic. 2 08/26 21:49 Order name: [facility] 08/26 22:39 Order name: SARS-COV-2 RT PCR [facility] 08/26 18:42 Order name: Cardiac monitoring; Complete Time: 18:43 [facility] 08/26 18:42 Order name: EKG - Nurse/Tech; Complete Time: 18:43 [facility] 08/26 18:42 Order name: IV Saline Lock; Complete Time: 19:14 [facility] 08/26 18:42 Order name: Labs collected and sent; Complete Time: 19:14 [facility] 08/26 18:42 Order name: O2 Per Protocol; Complete Time: 18:43 [facility] 08/26 18:42 Order name: O2 Sat Monitoring; Complete Time: 18:43 [facility] Administered Medications: 20:20 Drug: Aspirin Chewable Tablet 324 mg Route: PO; vg1 23:00 Follow up: Response: No adverse reaction vg1 Disposition: 08/27 05:58 Co-signature as Attending Physician, Joni Arroyo MD I agree with the assessment and kdr plan of care. Disposition: 08/26/20 20:04 Hospitalization ordered by Jeremias Deutsch for Observation. Preliminary diagnosis is Chest pain, unspecified. - Bed requested for Telemetry/MedSurg (observation). - Status is Observation. vg1 - Condition is Stable. - Problem is new. - Symptoms are unchanged. Signatures: Dispatcher [facility] Lisa Gonzalez, RN Joni Peterson MD MD [facility] Guilherme Kimball PA PA [facility] Caridad Lopez, RN RN vg1 Syd Clay RN RN ll1 Corrections: (The following items were deleted from the chart) 08/26 20:34 20:04 Hospitalization Ordered by Jeremias Deutsch DO for Observation. Preliminary diagnosis is Chest pain, unspecified. Bed requested for Telemetry/MedSurg (observation). Status is Observation. Condition is Stable. Problem is new. Symptoms are unchanged. [facility] 23:04 20:34 08/26/2020 20:04 Hospitalization Ordered by Jeremias Deutsch DO for Observation. vg1 Preliminary diagnosis is Chest pain, unspecified. Bed requested for Telemetry/MedSurg (observation). Status is Observation. Condition is Stable. Problem is new. Symptoms are unchanged.
--- NOTE | 2020-08-26 20:04 | ER ---
Nurse's Notes [facility] Name: Jagdeep Sparks Jr Age: 49 yrs Sex: Male : 1970 Arrival Date: 08/26/2020 Time: 16:24 Bed 26 Private MD: Diagnosis: Chest pain, unspecified Presentation: 08/26 16:32 Chief complaint: Patient states: CP, shoulder pains since Monday. Stopped taking his ll1 BP pills Monday, everything got slightly better. But still feels the CP And shoulder pains. + dizzy at times. Coronavirus screen: Client denies travel out of the [place] in the last 14 days. At this time, the client does not indicate any symptoms associated with coronavirus-19. Ebola Screen: Patient denies travel to an Ebola-affected area in the 21 days before illness onset. Initial Sepsis Screen: Does the patient meet any 2 criteria? No. Patient's initial sepsis screen is negative. Does the patient have a suspected source of infection? No. Patient's initial sepsis screen is negative. Risk Assessment: Do you want to hurt yourself or someone else? Patient reports no desire to harm self or others. Onset of symptoms was August 22, 2020. 16:32 Method Of Arrival: Ambulatory ll1 16:32 Acuity: RACHID 3 ll1 Historical: - Allergies: 16:36 No Known Allergies; ll1 - PMHx: 16:36 Diabetes - NIDDM; High Cholesterol; ll1 - PSHx: 16:36 knee sx; ll1 - Immunization history:: Flu vaccine is not up to date. - Social history:: Smoking status: Patient denies any tobacco usage or history of. Screenin:54 Abuse screen: Denies threats or abuse. Nutritional screening: No deficits noted. vg1 Tuberculosis screening: No symptoms or risk factors identified. Fall Risk No fall in past 12 months (0 pts). No secondary diagnosis (0 pts). IV access (20 points). Ambulatory Aid- None/Bed Rest/Nurse Assist (0 pts). Gait- Normal/Bed Rest/Wheelchair (0 pts) Mental Status- Oriented to own ability (0 pts). Total Guo Fall Scale indicates No Risk (0-24 pts). Assessment: 18:52 General: Appears in no apparent distress. comfortable, Behavior is calm, cooperative. vg1 Pain: Complains of pain in neck, right and left shoulders Pain radiates to right arm and left arm Pain currently is 2 out of 10 on a pain scale. at worst was 8 out of 10 on a pain scale. Neuro: Level of Consciousness is awake, alert, obeys commands, Oriented to person, place, time, situation. Neuro: Reports dizziness, Denies headache. Cardiovascular: Patient's skin is warm and dry. Respiratory: Airway is patent Respiratory effort is even, unlabored, Respiratory pattern is regular, symmetrical. GI: Patient currently denies diarrhea, nausea, vomiting. : No signs and/or symptoms were reported regarding the genitourinary system. EENT: Denies blurred vision. Derm: Skin is intact, is healthy with good turgor. Musculoskeletal: Circulation, motion, and sensation intact. 20:21 Reassessment: Patient appears in no apparent distress at this time. Patient and/or vg1 family updated on plan of care and expected duration. Pain level reassessed. Patient is alert, oriented x 3, equal unlabored respirations, skin warm/dry/pink. Patient states Left shoulder pain 4/10. Provider notified. 21:11 Reassessment: Attempted to call report. vg1 Vital Signs: 16:32 BP 139 / 100; Pulse 72; Resp 17; Temp 98.0; Pulse Ox 99% ; Weight 98.43 kg; Height 6 ll1 ft. 0 in. (182.88 cm); Pain 2/10; 18:30 BP 118 / 90 LA (auto/reg); Pulse 61; Resp 13 S; Temp 98.0(O); Pulse Ox 100% on R/A; jp3 Pain 0/10; 20:21 BP 133 / 87; Pulse 62; Resp 14; Pulse Ox 100% on R/A; vg1 16:32 Body Mass Index 29.43 (98.43 kg, 182.88 cm) ll1 ED Course: 16:24 Patient arrived in ED. ds1 16:35 Triage completed. ll1 16:36 Arm band placed on. ll1 16:44 EKG completed in triage. Results shown to MD. ll1 16:44 EKG done, by ED staff, reviewed by Guilherme HIGHTOWER. jp3 18:31 Guilherme Kimball PA is PHCP. [facility] 18:31 Joni Arroyo MD is Attending Physician. [facility] 18:35 Bed in low position. Call light in reach. Side rails up X 1. Verbal reassurance given. jp3 surveillance monitor on. Pulse ox on. NIBP on. 18:35 Patient maintains SpO2 saturation greater than 95% on room air. jp3 18:43 Caridad Lopez, RN is Primary Nurse. vg1 18:45 Initial lab(s) drawn, by me, sent to lab. Inserted saline lock: 20 gauge in right jp3 antecubital area, using aseptic technique. Blood collected. 19:14 X-ray(s) taken. jp3 19:56 XRAY Chest (1 view) In Process Unspecified. EDMS 20:04 Jeremias Deutsch DO is Hospitalizing Provider. [facility] 22:58 No provider procedures requiring assistance completed. Patient admitted, IV remains in vg1 place. Administered Medications: 20:20 Drug: Aspirin Chewable Tablet 324 mg Route: PO; vg1 23:00 Follow up: Response: No adverse reaction vg1 Outcome: 20:04 Decision to Hospitalize by Provider. zoila 22:58 Admitted to Tele accompanied by tech, via wheelchair, room 207, with chart, Report vg1 called to TIFFANY Reese 22:58 Condition: stable 22:58 Instructed on the need for admit. 23:04 Patient left the ED. vg1 Signatures: Dispatcher [employer] EDMS Guilherme Kimball PA PA jmm Sanford, Demi ds1 Ancelmo Smith jp3 Caridad Lopez, RN RN vg1 Syd Clay RN RN 1
--- NOTE | 2020-08-26 20:23 | RAD REPORT ---
EXAM DESCRIPTION: Jarek Single View08/26/2020 7:50 pm CLINICAL HISTORY: Chest pain COMPARISON: 2016 FINDINGS: Calcified granuloma right lung. The lungs appear clear of acute infiltrate. The heart is normal size IMPRESSION: No acute abnormalities displayed
[2020-08-26] MEDS ORDERED: ASPIRIN 81 MG CHEWABLE TABLET ONE (20:34)
--- NOTE | 2020-08-26 20:37 | P.HP ---
Certification for Inpatient Patient admitted to: Observation With expected LOS: <2 Midnights Patient will require the following post-hospital care: None Practitioner: I am a practitioner with admitting privileges, knowledge of patient current condition, hospital course, and medical plan of care. Services: Services provided to patient in accordance with Admission requirements found in Title 42 Section 412.3 of the Code of Federal Regulations <Xander Corado - Last Filed: 08/26/20 20:34> Patient admitted to: Observation <Jeremias Deutsch - Last Filed: 08/27/20 14:29> Patient History Date of Service: 08/26/20 Primary Care Provider: Dr. Hua, Dr. Parsons Reason for admission: Chest pain History of Present Illness: 49-year-old male history of diabetes mellitus type 2, hypertension, hyperlipidemia presents the emergency department for chest pain. Patient reports on Sundays at multiple episodes of chest pain radiating to bilateral shoulders, neck with associated lightheadedness. Patient describes pain as both sharp/stabbing and also as tightness/pressure. Patient with stress test and April 2020 which was normal, has never had a heart catheterization prior. Initial troponin negative, EKG without acute changes, ED provider wishes to admit patient for further evaluation and management. - Past Medical/Surgical History -: Diabetes mellitus type 2 -: Hypertension -: Hyperlipidemia -: Knee surgeries Psychosocial/ Personal History: Patient lives with his family. - Family History Father -: Diabetes - Social History Smoking Status: Never smoker Alcohol use: Yes CD- Drugs: No Caffeine use: Yes Place of Residence: Home <MickieXander - Last Filed: 08/26/20 20:34> Date of Service: 08/27/20 <Jeremias Deutsch - Last Filed: 08/27/20 14:29> Review of Systems 10-point ROS is otherwise unremarkable Cardiovascular: Chest Pain, Light Headedness, As per HPI <MickieXander - Last Filed: 08/26/20 20:34> Physical Examination - Physical Exam General: Alert, In no apparent distress HEENT: Atraumatic, PERRLA, Mucous membr. moist/pink Neck: Supple, 2+ carotid pulse no bruit, No LAD Respiratory: Clear to auscultation bilaterally, Normal air movement Cardiovascular: Regular rate/rhythm, Normal S1 S2 Gastrointestinal: Normal bowel sounds, No tenderness Musculoskeletal: No tenderness Integumentary: No rashes Neurological: Normal speech, Normal strength at 5/5 x4 extr, Normal tone, Normal affect - Studies Laboratory Data (last 24 hrs) 08/26/20 18:48: PT 12.5, INR 1.09 08/26/20 18:48: WBC 6.40, Hgb 14.9, Hct 44.2, Plt Count 229 08/26/20 18:48: Sodium 141, Potassium 3.9, BUN 18, Creatinine 0.83, Glucose 99, Magnesium 2.3, Total Bilirubin 0.4, AST 12 L, ALT 25, Alkaline Phosphatase 81 <Xander Corado - Last Filed: 08/26/20 20:34> - Studies Laboratory Data (last 24 hrs) 08/26/20 18:48: PT 12.5, INR 1.09 08/26/20 18:48: WBC 6.40, Hgb 14.9, Hct 44.2, Plt Count 229 08/26/20 18:48: Sodium 141, Potassium 3.9, BUN 18, Creatinine 0.83, Glucose 99, Magnesium 2.3, Total Bilirubin 0.4, AST 12 L, ALT 25, Alkaline Phosphatase 81 <Jeremias Deutsch - Last Filed: 08/27/20 14:29> Assessment and Plan - Plan Assessment Chest pain rule out ACS Diabetes mellitus type 2 hypertension Hyperlipidemia Plan Chest pain rule out ACS: Trend troponins, monitor on telemetry. Continue daily aspirin, home medications. NPO after midnight in case cardiology prefers stress test/heart catheterization. Lovenox for DVT prophylaxis. Cardiology consult in place. Diabetes mellitus type 2: A.c. HS Accu-Cheks, sliding scale insulin therapy. A1c with morning labs. hypertension: Obtain and continue home medications. Hyperlipidemia: Lipid panel with morning labs, continue home medications. Discharge Plan: Home Plan to discharge in: 24 Hours - Advance Directives Does patient have a Living Will: No Does patient have a Durable POA for Healthcare: No - Code Status/Comfort Care Code Status Assessed: Yes (Full code) Critical Care: No Time Spent Managing Pts Care (In Minutes): 55 <Xander Corado - Last Filed: 08/26/20 20:34> - Plan Case discussed in detail with nurse practitioner. Agree with plan of care. Please see discharge orders and summary for details. <Jeremias Deutsch - Last Filed: 08/27/20 14:29>
[2020-08-26] MEDS ORDERED: ONDANSETRON 4 MG/2 ML VIAL IV PRN (23:18)
[2020-08-26] MEDS ORDERED: MORPHINE 2 MG/ML SYR IV PRN (23:18)
[2020-08-26] MEDS: INSULIN -REGULAR HUMAN 50 UNIT/0.5 ML ML SQ SCH (23:18)
[2020-08-27 00:38] VITALS: O2SAT 99; BMI 29.4
[2020-08-27 05:03] LABS: Absolute Lymphocytes (CBC) 2.3 K/uL (0.7-4.9); Basophils % 0.9 % (0-1.3); Hematocrit 40.3 % (39.6-49.0); Lymphocytes % 37.2 % (15.3-44.8); RBC Red Blood Cell Count 4.38 M/uL (4.33-5.43)
[2020-08-27 05:23] LABS: BUN Blood Urea Nitrogen 22 mg/dL (7-18); Bicarbonate 32 mmol/L (21-32); Glucose Level 108 mg/dL (74-106); HDL Cholesterol 48 mg/dL (40-60); LDL Cholesterol, Calculated 92 (<130); Magnesium 2.5 mg/dL (1.8-2.4); Potassium 3.9 mmol/L (3.5-5.1); Sodium Level 141 mmol/L (136-145); Troponin I < 0.02 ng/mL (0.0-0.045)
[2020-08-27] MEDS: INSULIN -REGULAR HUMAN 50 UNIT/0.5 ML ML SQ SCH ×2 (07:30→11:30)
[2020-08-27] MEDS ORDERED: POTASSIUM CL SA 10 MEQ TAB PO ONE (09:00)
[2020-08-27] MEDS ORDERED: ASPIRIN EC 81 MG TAB PO SCH (09:00)
[2020-08-27] MEDS ORDERED: ENOXAPARIN 40 MG/0.4 ML SQ SCH (09:00)
--- NOTE | 2020-08-27 09:16 | P.DS ---
Admission Date: 08/26/20 Discharge Date: 08/27/20 Primary Care Provider: Dr. Jaqueline Wagner Disposition: ROUTINE DISCHARGE Discharge Condition: GOOD Reason for Admission: Chest pain Consultations: none Procedures: CXR: FINDINGS: Calcified granuloma right lung. The lungs appear clear of acute infiltrate. The heart is normal size IMPRESSION: No acute abnormalities displayed Medical Problem List: Chest pain, resolved Hypertension Diabetes mellitus type 2 controlled Hyperlipidemia Brief History of Present Illness: 49-year-old male history of diabetes mellitus type 2, hypertension, hyperlipidemia presents the emergency department for chest pain. Patient reports on Monday that the he had multiple episodes of chest pain radiating to bilateral shoulders, neck with associated lightheadedness. Patient describes pain as both sharp/stabbing and also as tightness/pressure. Patient also reported that 1 of his blood pressure medications was stopped recently. He had been on lisinopril and switched over to losartan. It was unclear on why PCP stopped his medication. Patient seen by Cardiology as an outpatient. Patient with priors is cardiac stress test in April 2020 which was unremarkable. Patient was admitted for further evaluation and treatment. Hospital Course: Patient presented with chest pain. Patient was evaluated. Cardiac enzymes unremarkable. No significant EKG changes noted. Patient reports of seen Cardiology as an outpatient. Patient had cardiac stress test April of 2020 which was unremarkable. Case discussed with cardiology. No intervention required at this time. Patient without chest pain. At discharge patient may continue with aspirin 81 mg daily. Patient will follow up with cardiology within 1 week to follow up this hospitalization. Due to his risk factors, need to consider heart catheterization or outpatient cardiac stress test to further evaluate. I have spoken to his outpatient investment executive-Dr. Parsons. Patient with diabetes mellitus type 2. This is well controlled. Hemoglobin A1c 6.4. At discharge patient will continue with his current medication of metformin 1000 mg 1 pill twice daily. Recommend to maintain blood sugar less than 140 fasting or less than 200 after meals. Further adjustment can be done by his PCP. Patient with hypertension. Patient previously on lisinopril. This was switched over to losartan 50 mg daily. Blood pressures have been stable without medication. Recommend to monitor blood pressures daily. He may continue off medication at this time. If blood pressures remain above 140/90 then losartan 25 mg once daily will be started. Recommend to maintain blood pressures less 130/80. Further adjustment in medication may be required. This can be done with the help of his PCP. Patient with hyperlipidemia. LDL 92. At discharge he will continue with his current medication Lipitor 20 mg daily. Vital Signs/Physical Exam: Temp Pulse Resp BP Pulse Ox 98.0 F 54 16 111/73 99 08/27/20 04:00 08/27/20 04:00 08/27/20 04:00 08/27/20 04:00 08/27/20 04:00 General: Alert, In no apparent distress, Oriented x3, Cooperative HEENT: Atraumatic Neck: Supple Respiratory: Clear to auscultation bilaterally, Normal air movement Cardiovascular: Normal pulses, Regular rate/rhythm Gastrointestinal: Normal bowel sounds, Soft and benign, Non-distended, No guarding Musculoskeletal: No erythema, No tenderness, No warmth Integumentary: No tenderness/swelling, No erythema, No warmth, No cyanosis Neurological: Normal speech, Normal strength at 5/5 x4 extr, Normal tone, Normal affect Laboratory Data at Discharge: WBC 6.30 K/uL (4.3-10.9) 08/27/20 04:30 Hgb 13.8 g/dL (13.6-17.9) 08/27/20 04:30 Hct 40.3 % (39.6-49.0) 08/27/20 04:30 Plt Count 203 K/uL (152-406) 08/27/20 04:30 PT 12.5 SECONDS (9.5-12.5) 08/26/20 18:48 INR 1.09 08/26/20 18:48 Sodium 141 mmol/L (136-145) 08/27/20 04:30 Potassium 3.9 mmol/L (3.5-5.1) 08/27/20 04:30 BUN 22 mg/dL (7-18) H 08/27/20 04:30 Creatinine 0.83 mg/dL (0.55-1.3) 08/27/20 04:30 Glucose 108 mg/dL (74-106) H 08/27/20 04:30 Magnesium 2.5 mg/dL (1.8-2.4) H 08/27/20 04:30 Total Bilirubin 0.4 mg/dL (0.2-1.0) 08/26/20 18:48 AST 12 U/L (15-37) L 08/26/20 18:48 ALT 25 U/L (12-78) 08/26/20 18:48 Alkaline Phosphatase 81 U/L (45-117) 08/26/20 18:48 Troponin I < 0.02 ng/mL (0.0-0.045) 08/27/20 04:30 Triglycerides 98 mg/dL (<150) 08/27/20 04:30 Cholesterol 160 mg/dL (<200) 08/27/20 04:30 HDL Cholesterol 48 mg/dL (40-60) 08/27/20 04:30 Cholesterol/HDL Ratio 3.33 08/27/20 04:30 Home Medications: Aspirin [Lo-Dose Aspirin EC] 1 tab PO DAILY 08/26/20 Atorvastatin Calcium 1 tab PO DAILY 08/26/20 Metformin HCl [Glucophage] 1 tab PO BID 08/26/20 Losartan Potassium [Cozaar] 25 mg PO DAILY #30 tablet 08/27/20 New Medications: Losartan Potassium [Cozaar] 25 mg PO DAILY #30 tablet Physician Discharge Instructions: Follow up with PCP in 1 week to follow up this hospitalization. Patient presented with chest pain. Patient was evaluated. Cardiac enzymes unremarkable. No significant EKG changes noted. Patient reports of seen Cardiology as an outpatient. Patient had cardiac stress test April of 2020 which was unremarkable. Case discussed with cardiology. No intervention required at this time. Patient without chest pain. At discharge patient may continue with aspirin 81 mg daily. Patient will follow up with cardiology within 1 week to follow up this hospitalization. Due to his risk factors, need to consider heart catheterization or outpatient cardiac stress test to further evaluate. I have spoken to his outpatient investment executive-Dr. Parsons. Patient with diabetes mellitus type 2. This is well controlled. Hemoglobin A1c 6.4. At discharge patient will continue with his current medication of metformin 1000 mg 1 pill twice daily. Recommend to maintain blood sugar less than 140 fasting or less than 200 after meals. Further adjustment can be done by his PCP. Patient with hypertension. Patient previously on lisinopril. This was switched over to losartan 50 mg daily. Blood pressures have been stable without medication. Recommend to monitor blood pressures daily. He may continue off medication at this time. If blood pressures remain above 140/90 then losartan 25 mg once daily will be started. Recommend to maintain blood pressures less 130/80. Further adjustment in medication may be required. This can be done with the help of his PCP. Patient with hyperlipidemia. LDL 92. At discharge he will continue with his current medication Lipitor 20 mg daily. Diet: ADA Activity: Ad shanell Followup: Ravindra Hua MD [Primary Care Provider] - Time spent managing pt's care (in minutes): 55
[2020-08-27 14:19] VITALS: BP 131/70; TEMP 97.8
== END 2020-08-27 15:18 | disposition home or self-care (01) ==
LOC: ER 16:22 → ERHOLD 20:08 → 2ND 23:00
PROVIDERS: ADMIT Family Medicine; ATTEND Family Medicine
DX: R07.9 Chest pain, unspecified (principal); E11.9 Type 2 diabetes mellitus without complications; I10 Essential (primary) hypertension; E78.5 Hyperlipidemia, unspecified; Z20.822 Contact with and (suspected) exposure to COVID-19; Z83.3 Family history of diabetes mellitus
CPT/HCPCS: 93005; 85025 ×2; 80048 ×2; 36415; 83735 ×2; 85610; 80061; 82947 ×3; 80076; 84443; 83036; 84484 ×3; 84439; 83880; 71045; 99285; U0003; J1650

== ENCOUNTER 2024-01-01 10:24 | Emergency (ER) | payer BC ==
--- OUTSIDE RECORDS SUMMARY | 2024-01-01 10:29 | XMS REPORT | Continuity of Care Document ---
Author Name Unknown Address [address] [facility] [address] [place] [address] [facility] Address [address] [facility] [address] [place] [address] Care Team Providers Care Health Practice Manager Name Role Phone Hood LUQUE, Michela Stephenson Primary Care Physician Christiano Munoz Attending Clinician Unavailable MARGOT OLSEN Attending Clinician Unavailab Margot Banerjee DO Attending Clinician [phone] LAY RODRÍGUEZ Attending Clinician Unavailable LAY RODRÍGUEZ Attending Clinician Unavailable KSENIA WYATT Attending Clinician Unavailable Ksenia Wyatt MD Attending Clinician [phone] Lauren Berry MD Attending Clinician [phone] LAUREN BERRY Attending Clinician Unavailjess Rojas Attending Clinician Unavailable Michela Morataya MD Attending Clinician [phone] MICHELA MORATAYA Attending Clinician Unava ilable LAB90 Attending Clinician Unavailable Doctor Unassigned, Naomi Attending Clinician U navailable Lab, Adc Fam Pob I Attending Clinician Unavailab Ethel Stoll Attending Clinician [phone] KSENIA WYATT Admitting Clinician Unavailable LAUREN BERRY Admitting Clinician Unavailjess Rojas Admitting Clinician Unavailable Payers Payer Name Policy Type Policy Number Effective Date Expirati on Date Source [facility] [id number] 2018 00:00:00 [employer] - CHOICE PLUS - NAP (POS II) [id number] 2012 00:00:00 [employer] HMO [id number] 2015 00:00:00 Problems Condition Name Condition Details Condition Category Status Onset Date Resolution Date Last Treatment Date Treating Clinician Comments Source Other chest pain Other chest pain Disease Active 11-27 00:00: 00 [facility] Left knee pain Left knee pain Disease Active 10-28 00:00: 00 [facility] Left knee pain Left knee pain Disease Active 10-28 00:00: 00 [facility] No known active problems No known active problems Disease Radha Antonio Allergies, Adverse Reactions, Alerts Allergy Name Allergy Type Status Severity Reaction(s) Onset Date Inactive Date Treating Clinician Comments Source NO KNOWN ALLERGIE S Drug Class Active [facility] Social History Social Habit Start Date Stop Date Quantity Comments Source Gender identity [facility] of Social function 2023-07-27 00:00:00 2023-07-27 00:00:00 [facility] Alcohol intake 2023-07-27 00:00:00 2023-07-27 00:00:00 0 /d [facility] Exposure to SARS-CoV-2 (event) 2022-11-17 00:00:00 2022-11-27 21:20:00 Not sure [facility] Tobacco use and exposure 2017-04-25 00:00:00 2017-04-25 00:00:00 Smokeless tobacco non-user [facility] Sex Assigned At 1970 00:00:00 1970 00:00:00 Radha Antonio Smoking Status Start Date Stop Date Source Never smoked tobacco [facility] Medications Ordered Medication Name Filled Medication Name Start Date Stop Date Current Medication? Ordering Clinician Indication Dosage Frequency Signature (SIG) Comments Components Source NaCl 0.9% (NS) bolus infusion 1,000 mL 07-27 19:00: 07-27 19:19 :00 No 1000mL at 999 mL/hr, 1,000 mL, IV Infusion, ONCE, 1 dose, On Maryann 07/27/23 at 1300, EDUARD [facility] diazePAM (VALIUM) injection 5 mg 07-27 18:15: 00 07-27 18:36 :00 No 5mg 5 mg, Slow IV Push, ONCE, 1 dose, On Maryann 07/27/23 at 1215, STAT [facility] NaCl 0.9% (NS) bolus infusion 1,000 mL 07-27 18:15: 00 07-27 18:56 :00 No 1000mL at 999 mL/hr, 1,000 mL, IV Infusion, ONCE, 1 dose, [facility] (TRAVEL-EAS E (MECLIZINE) ) tablet 25 mg 07-27 17:30: 00 07-27 17:24 :00 No 25mg 25 mg, Oral, ONCE, 1 dose, On Maryann 07/27/23 [facility] 1130[facility] am[facility].5 mg tablet 07-27 14:27: 32 Yes 2.5mg Take 1 tablet by mouth in the morning. [facility] iopamidol (ISOVUE 370-500 mL) injection 100 mL 02-10 12:45: 00 02-10 12:45 :00 No [id number] 100mL 100 mL, Intravenou s, ONCE, 1 dose, On Mon02/10/23 at 0745, Routine [facility] aspirin tablet 325 mg 11-28 03:45: 00 11-28 03:45 :00 No 325mg 325 mg, Oral, ONCE, 1 dose, On Mon11/27/22 at 2245, Routine [facility] ketorolac (TORADOL) injection 30 mg 11-28 03:30: 00 11-28 02:57 :00 No 30mg 30 mg, Slow IV Push, ONCE, 1 dose, On Mon11/27/22 at 2230, Routine [facility] NaCl 0.9% (NS) bolus infusion 1,000 mL 11-28 02:45: 00 11-28 04:00 :00 No 1000mL at 999 mL/hr, 1,000 mL, IV Infusion, ONCE, 1 dose, On Mon11/27/22 at 2145, STAT [facility] nitroglycer in (NITROL) 2 % ointment 0.5 Inch 11-28 02:45: 00 11-28 03:05 :00 No .5[in_u s] 0.5 Inch, Transderma l (Apply To Skin), ONCE, 1 dose, On Mon11/27/22 at 2145, EDUARD [facility] cyclobenzap rine 5 mg tablet 11-27 00:00: 00 07-27 00:00 :00 No [id number] 5mg Take 1 tablet by mouth in the morning and 1 tablet at noon and 1 tablet in the evening. [facility] doxycycline hyclate 100 mg capsule 11-27 00:00: 00 12-05 04:59 :00 No [id number] 100mg Take 1 capsule by mouth in the morning and 1 capsule in the evening. Do all this for 7 days. [facility] ibuprofen 800 mg tablet 11-27 00:00: 00 12-03 04:59 :00 No [id number] 800mg Take 1 tablet by mouth every 8 (eight) hours as needed for Pain (scale 4-6) for up to 5 days. [facility] Aspirin (Aspirin 81) 81 MG oral Tablet Delayed Response 08-20 13:36: 39 Yes 81mg Take 81 mg by mouth daily Radha Antonio Amlodipine Besylate 2.5 MG oral Tablet 2020-07 00:00: 00 Yes Radha Antonio methylPREDN ISolone 4 MG oral Tablet Therapy Pack 03-30 00:00: 00 Yes [id number] 1{ap} Take 1 ap by mouth See Admin Instructio ns Use as directed Radha Antonio Cyclobenzap rine HCl 10 MG oral Tablet 03-30 00:00: 00 Yes [id number] 10mg Q.[id number] 3D Take 1 tablet (10 mg total) by mouth 3 times daily as needed for muscle spasms Radha Antonio Ibuprofen 800 MG oral Tablet 03-22 00:00: 00 Yes Radha Antonio Glucose Blood in vitro Strip 03-18 00:00: 00 Yes 1{each} 1 each by other route twice a week Radha Antonio Blood Glucose Monitoring Suppl (Blood Glucose Monitor System) w/Device does not apply Kit 03-17 00:00: 00 Yes Check FSBS once a week. Radha Antonio Lancets does not apply Misc 03-17 00:00: 00 Yes FSBS twice weekly, Radha Antonio Lisinopril 5 MG oral Tablet 03-12 00:00: 00 Yes 5mg Take 1 tablet (5 mg total) by mouth daily Radha Antonio ketorolac (TORADOL) injection 30 mg 02-16 19:30: 00 02-16 19:13 :00 No 30mg 30 mg, Intramuscu lar, ONCE, 1 dose, [facility] 02/16/21 at 1430, EDUARD
Fa culty member approving Restricted medication : MARGOT OLSEN [facility] Triamcinolo ne Acetonide 55 MCG/ACT nasal Aerosol 02-04 00:00: 00 Yes Radha Antonio Metformin HCl 1000 MG oral Tablet 12-17 00:00: 00 Yes 1{tbl} Take 1 tablet by mouth 2 times daily Radha Antonio Atorvastati n Calcium 20 MG oral Tablet 12-16 00:00: 00 Yes 1{tbl} Take 1 tablet by mouth daily Radha Antonio azithromyci n (ZITHROMAX Z-AP) 250 mg tablet 2016-07 0 00:00: 00 07-27 00:00 :00 No [id number] Take 500 mg day 1, then 250 mg days 2 to 5. [facility] fluticasone (FLONASE) 50 mcg/actuati on nasal spray 2016-07 00:00: 00 07-27 00:00 :00 No [id number] 2{spray } Use 2 Sprays in each nostril daily. [facility] metFORMIN (GLUCOPHAGE ) 500 mg tablet 10-26 00:00: 00 Yes [facility] atorvastati n (LIPITOR) 10 mg tablet 10-26 00:00: 00 Yes [facility] lisinopril (PRINIVIL,Z ESTRIL) 5 mg tablet 10-26 00:00: 00 07-27 00:00 :00 No [facility] acetaminoph en-codeine (TYLENOL #3) 300-30 mg tablet 10-26 00:00: 00 07-27 00:00 :00 No [facility] omeprazole (PRILOSEC) 20 mg capsule 09-23 00:00: 00 07-27 00:00 :00 No 20mg Take 1 Cap by mouth daily. [facility] Vital Signs Vital Name Observation Time Observation Value Comments S ource Systolic blood pressure 2023-07-27 19:30:00 128 mm[Hg] [facility] Diastolic blood pressure 2023-07-27 19:30:00 91 mm[Hg] [facility] Heart rate 2023-07-27 19:30:00 54 /min [facility] Respiratory rate 2023-07-27 19:30:00 19 /min [facility] Oxygen saturation in Arterial blood by Pulse oximetry 2023-07-27 19:30:00 99 /min [facility] Body temperature 2023-07-27 19:00:00 36.67 Leila [facility] Body height 2023-07-27 17:07:[address] [facility] Body weight 2023-07-27 17:07:[address] [facility] BMI 2023-07-27 17:07:00 29.16 kg/m2 [facility] Systolic blood pressure 2023-02-10 12:30:00 123 mm[Hg] [facility] Diastolic blood pressure 2023-02-10 12:30:00 76 mm[Hg] [facility] Heart rate 2023-02-10 12:30:00 62 /min [facility] Respiratory rate 2023-02-10 12:30:00 18 /min [facility] Oxygen saturation in Arterial blood by Pulse oximetry 2023-02-10 12:30:00 100 /min [facility] Body temperature 2023-02-10 10:31:00 36.72 Leila [facility] Body height 2023-02-10 10:31:[address] [facility] Body weight 2023-02-10 10:31:[address] [facility] BMI 2023-02-10 10:31:00 29.70 kg/m2 [facility] Systolic blood pressure 2022-11-28 05:00:00 122 mm[Hg] [facility] Diastolic blood pressure 2022-11-28 05:00:00 75 mm[Hg] [facility] Heart rate 2022-11-28 05:00:00 57 /min [facility] Respiratory rate 2022-11-28 05:00:00 19 /min [facility] Oxygen saturation in Arterial blood by Pulse oximetry 2022-11-28 05:00:00 97 /min [facility] Body temperature 2022-11-28 02:20:00 36.89 Leila [facility] Systolic blood pressure 2021-08-20 19:35:00 127 mm[Hg] Radha [facility] Diastolic blood pressure 2021-08-20 19:35:00 90 mm[Hg] Radha [facility]ancour[facility] Heart rate 2021-08-20 19:35:00 73 /min Ashlyn Antonio Body temperature 2021-08-20 19:35:00 37.06 Leila Radha Antonio Respiratory rate 2021-08-20 19:35:00 15 /min Radha Antonio Body height 2021-08-20 19:35:00 182.9 cm Marissa meza Paco Body weight 2021-08-20 19:35:00 99.791 kg Marissa Antonio BMI 2021-08-20 19:35:00 29.84 kg/m2 Marissa Antonio Systolic blood pressure 2021-02-16 17:42:00 154 mm[Hg] [facility] Diastolic blood pressure 2021-02-16 17:42:00 84 mm[Hg] [facility] Heart rate 2021-02-16 17:42:00 69 /min [facility] Body temperature 2021-02-16 17:42:00 36.78 Leila [facility] Respiratory rate 2021-02-16 17:42:00 18 /min [facility] Body weight 2021-02-16 17:42:[address] [facility] BMI 2021-02-16 17:42:00 31.19 kg/m2 [facility] Oxygen saturation in Arterial blood by Pulse oximetry 2021-02-16 17:42:00 99 /min [facility] Procedures Procedure Date / Time Performed Performing Clinician Source COMP. METABOLIC PANEL ([id number]) 2023-07-27 17:33:00 Margot Olsen [facility] CBC WITH DIFF 2023-07-27 17:33:00 Margot Olsen U [facility] POCT GLUCOSE (AUTOMATED) 2023-07-27 17:12:00 Margot Olsen [facility] CONSENT/REFUSAL FOR DIAGNOSIS AND TREATMENT 2023-07-27 16:56:31 Doctor Unassigned, Naomi [facility] CT CHEST PULMONARY ANGIOGRAM 2023-02-10 11:47:25 Ksenia Wyatt [facility] XR CHEST 2 VW 2023-02-10 11:09:[address] [facility] COMP. METABOLIC PANEL (01502) 2023-02-10 10:54:00 Ksenia Wyatt [facility] CBC WITH DIFF 2023-02-10 10:54:[address] [facility] PROTHROMBIN TIME / INR 2023-02-10 10:54:00 Chuck Wyatt [facility] ACTIVATED PARTIAL THRMPLAS MELVIN 2023-02-10 10:54:00 Ksenia Wyatt [facility] CONSENT/REFUSAL FOR DIAGNOSIS AND TREATMENT 2023-02-10 10:16:12 Doctor Unassigned, Naomi [facility] XR CHEST 2 VW 2022-11-28 04:27:17 [facility] 2022-11-28 03:38:00 [facility] TR[facility] 2022-11-28 02:48:00 Lauren Berry Uni [facility] COMP. METABOLIC PANEL ([id number]) 2022-11-28 02:48:00 Lauren Berry [facility] CONSENT/REFUSAL FOR DIAGNOSIS AND TREATMENT 2022-11-28 02:11:26 Doctor Unassigned, Naomi [facility] NOTICE OF PRIVACY PRACTICES 2022-11-28 02:10:55 Doctor Unassigned, Naomi [facility] ASSIGNMENT OF BENEFITS 2021-02-16 18:34:07 Malachito r Unassigned, Naomi [facility] XR CHEST 2 VW 2021-02-16 18:08:44 Margot Olsen [facility] NOTICE OF PRIVACY PRACTICES 2021-02-16 17:55:08 Doctor Unassigned, Naomi [facility] CONSENT/REFUSAL FOR DIAGNOSIS AND TREATMENT 2021-02-16 17:36:23 Doctor Unassigned, Naomi [facility] Encounters Start Date/Time End Date/Time Encounter Type Admission Type Attending [facility] Care Facility Care Department Encounter ID Source 2023-10-06 10:01:00 [facility] [id number] 2023-09-25 09:27:01 Outpatient Munoz, [facility] [id number] [facility] 2023-07-14 10:09:01 Outpatient Alexander [facility] [id number] [facility] 2023-02-06 16:07:01 [facility] [id number] [facility] 2022 08:29:02 [facility] [id number] [facility] 2022-11-01 14:52:03 [facility] [id number] [facility] 2021-05-24 11:08:48 Emergency [facility] [id number] [facility] 2023-07-27 11:12:00 2023-07-27 14:27:00 Emergency X PRETT[facility]TANRA [facility] ERT [id number] [facility] 2023-07-27 11:12:00 2023-07-27 14:27:00 Emergency Margot Olsen [facility] [id number] 350.1.13.10 4.2.7.2.686 [id number] [facility] 2023-02-10 05:34:00 2023-02-10 07:36:00 Emergency X KSENIA WYATT [facility] ERT [id number] [facility] 2023-02-10 05:34:00 2023-02-10 07:36:00 Emergency Ksenia Wyatt [facility] [id number] 350.1.13.10 4.2.7.2.686 [id number] [facility] 2022-11-27 21:22:00 2022-11-28 00:21:00 Emergency Lauren Berry A [facility] 1.2.840.114 350.1.13.10 4.2.7.2.686 [id number] [facility] 2022-11-27 21:22:00 2022-11-28 00:21:00 Emergency [facility] [id number] [facility] 2022-10-20 00:00:00 2022-10-20 00:00:00 Outpatient DeMattia_J VFP VFP [id number] [facility] 2021-08-20 13:45:00 2021-08-20 14:00:00 Office Visit HoodMichela 1..840.114 350.1.13.13 [id number] [id number] [facility] 2021-04-09 11:30:00 2021-04-09 11:30:00 Outpatient HOODEVERTSIDNEY SUE [id number] Radha [facility] 2021-04-06 11:30:00 2021-04-06 11:30:00 Outpatient MICHELA MORATAYA [id number] Rdaha [facility] 2021-03-30 11:30:00 2021-03-30 11:30:00 Outpatient HOOD MICHELA SUE [id number] Radha [facility] 2021-03-17 00:00:00 2021-03-17 00:00:00 Outpatient HOODEVERT PARADASIDNEY SUE [id number] Radha [facility] 2021-03-12 00:00:00 2021-03-12 00:00:00 Outpatient HOOD MICHELA SUE [id number] Radha [facility] 2021-03-10 10:15:00 2021-03-10 10:15:00 Outpatient LAB90 RADHA SUE [id number] Radha [facility] 2021-03-10 10:15:00 2021-03-10 10:15:00 Outpatient LAB90 RADHA SUE [id number] [facility] 2021-03-10 09:30:00 2021-03-10 09:30:00 Outpatient HOOD [facility]LA [facility] [id number] [facility] 2021-02-16 12:45:00 2021-02-16 14:47:00 Emergency Margot Olsen [facility] 1..840.114 350.1.13.10 4.2.7.2.686 [id number] [facility] 2021-02-16 00:00:00 2021-02-16 00:00:00 Orders Only Doctor Unassigned, Naomi [facility] 1.2840.114 350.1.13.10 4.2.7.2.686 [id number] [facility] 2020-05-08 09:40:00 2020-05-08 09:40:00 Outpatient R [facility] [id number] [facility] 2020-05-06 13:29:21 2020-05-06 13:49:21 Laboratory Only Lab, [facility] Pob I [facility] [address] 1.0.114 350.1.13.10 4.2.7.2.686 [id number] 2020-05-06 13:29:21 2020-05-06 13:49:21 Laboratory Only Lab, [facility] Fam Pob I Ethel Rivera [facility] [address] 1.20.114 350.1.13.10 4.2.7.2.686 [id number] [facility] 2020-05-06 13:20:00 2020-05-06 13:20:00 Outpatient R [facility] [id number] [facility] 2020-05-06 00:00:00 2020-05-06 00:00:00 Letter (Out) Doctor Unassigned, Naomi [facility] 1.20.114 350.1.13.10 4.2.7.2.686 [id number] 2020-05-06 00:00:00 2020-05-06 00:00:00 Letter (Out) Doctor Unassigned, Naomi [facility] 1.2840.114 350.1.13.10 4.2.7.2.686 [id number] [facility] Results Test Description Test Time Test Comments Results Result Co mments Source [facility] WITH [id number] 17:47:53* Test Item Value Reference Range Interpretation Comme nts WBC (test code = 6690-2) 5.39 See_Comment [Automated messa ge] The system which generated this result transmitted reference range: 4.20 - 10.70 10*3/?L. The reference range was not used to interpret this result as normal/abnormal. RBC (test code = 789-8) 4.78 See_Comment [Automated messa ge] The system which generated this result transmitted reference range: 4.26 - 5.52 10*6/?L. The reference range was not used to interpret this result as normal/abnormal. HGB (test code = 718-7) 15.3 g/dL 12.2-16.4 HCT (test code = 4544-3) 44.6 % 38.4-49.3 MCV (test code = 787-2) 93.3 fL 81.7-95.6 MCH (test code = 785-6) 32.0 pg 26.1-32.7 MCHC (test code = 786-4) 34.3 g/dL 31.2-35.0 RDW-SD (test code = 33625-2) 42.0 fL 38.5-51.6 RDW-CV (test code = 788-0) 12.2 % 12.1-15.4 PLT (test code = 777-3) 235 See_Comment [Automated messa ge] The system which generated this result transmitted reference range: 150 - 328 10*3/?L. The reference range was not used to interpret this result as normal/abnormal. MPV (test code = 48684-4) 10.2 fL 9.8-13.0 NRBC/100 WBC (test code = 7160302352) 0.0 See_Comment [Automated Promethean ssage] The system which generated this result transmitted reference range: 0.0 - 10.0 /100 WBCs. The reference range was not used to interpret this result as normal/abnormal. NRBC x10^3 (test code = 9226750011) See_Comment [Automated messa ge] The system which generated this result transmitted reference range: 10*3/?L. The reference range was not used to interpret this result as normal/abnormal. GRAN MAT (NEUT) % (test code = 770-8) 59.9 % IMM GRAN % (test code = 8687191153) 0.40 % LYMPH % (test code = 736-9) 30.1 % MONO % (test code = 5905-5) 8.0 % EOS % (test code = 713-8) 0.7 % BASO % (test code = 706-2) 0.9 % GRAN MAT x10^3(ANC) (test code = 2984905905) 3.23 10*3/uL 1.99-6.95 IMM GRAN x10^3 (test code = 1270021359) 0.00-0.06 LYMPH x10^3 (test code = 731-0) 1.62 10*3/uL 1.09-3.23 MONO x10^3 (test code = 742-7) 0.43 10*3/uL 0.36-1.02 EOS x10^3 (test code = 711-2) 0.04 10*3/uL 0.06-0.53 L BASO x10^3 (test code = 704-7) 0.05 10*3/uL 0.01-0.09 Lab Interpretation (test code = 94754-8) [facility] 17:13:23* Test Item Value Reference Range Interpretation Comme [facility] POCT GLU (test code = 9251252839) 97 mg/dL 70-110 Lab Interpretation (test cod e = 01466-9) Normal [facility] WITH [id number] 03:54:30* Test Item Value Reference Range Interpretation Comme nts WBC (test code = 6690-2) 6.34 See_Comment [Automated messa ge] The system which generated this result transmitted reference range: 4.20 - 10.70 10*3/?L. The reference range was not used to interpret this result as normal/abnormal. RBC (test code = 789-8) 4.21 See_Comment L [Automated messa ge] The system which generated this result transmitted reference range: 4.26 - 5.52 10*6/?L. The reference range was not used to interpret this result as normal/abnormal. HGB (test code = 718-7) 13.0 g/dL 12.2-16.4 HCT (test code = 4544-3) 39.4 % 38.4-49.3 MCV (test code = 787-2) 93.6 fL 81.7-95.6 MCH (test code = 785-6) 30.9 pg 26.1-32.7 MCHC (test code = 786-4) 33.0 g/dL 31.2-35.0 RDW-SD (test code = 61832-4) 43.3 fL 38.5-51.6 RDW-CV (test code = 788-0) 12.7 % 12.1-15.4 PLT (test code = 777-3) 200 See_Comment [Automated Wanderioa ge] The system which generated this result transmitted reference range: 150 - 328 10*3/?L. The reference range was not used to interpret this result as normal/abnormal. MPV (test code = 01559-3) 10.2 fL 9.8-13.0 NRBC/100 WBC (test code = 9982544428) 0.0 See_Comment [Automated Promethean ssage] The system which generated this result transmitted reference range: 0.0 - 10.0 /100 WBCs. The reference range was not used to interpret this result as normal/abnormal. NRBC x10^3 (test code = 7474543384) See_Comment [Automated Wanderioa ge] The system which generated this result transmitted reference range: 10*3/?L. The reference range was not used to interpret this result as normal/abnormal. GRAN MAT (NEUT) % (test code = 770-8) 49.6 % IMM GRAN % (test code = 5456347926) 0.50 % LYMPH % (test code = 736-9) 38.2 % MONO % (test code = 5905-5) 9.6 % EOS % (test code = 713-8) 1.6 % BASO % (test code = 706-2) 0.5 % GRAN MAT x10^3(ANC) (test code = 1714806224) 3.15 10*3/uL 1.99-6.95 IMM GRAN x10^3 (test code = 4875565085) 0.03 10*3/uL 0.00-0.06 LYMPH x10^3 (test code = 731-0) 2.42 10*3/uL 1.09-3.23 MONO x10^3 (test code = 742-7) 0.61 10*3/uL 0.36-1.02 EOS x10^3 (test code = 711-2) 0.10 10*3/uL 0.06-0.53 BASO x10^3 (test code = 704-7) 0.03 10*3/uL 0.01-0.09 Lab Interpretation (test code = 36677-3) [facility] [id number] 03:49:29* Test Item Value Reference Range Interpretation Comme nts TROPONIN I (test code = 0143173753) 0.002 ng/mL <=0.034 GERMÁN (test code = GERMÁN) Reference (Normal) Range (defined by the 99th percentile reference limit): <= 0.034 ng/mL Note: Cardiac troponin begins to rise 3-4 hours after the onset of ischemia. Repeat in 4-6 hours if the sample was drawn within 3-4 hours of the onset of the symptom and found normal. Diagnosis of myocardial injury is made with acute changes in cTn concentrations with at least one serial sample above the 99th percentile upper reference limit (URL), taken together with the patient's clinical presentation. Biotin has been reported to cause a negative bias, interpret results relative to patient's use of biotin. Lab Interpretation (test code = 34732-2) [facility] (64147)2022-11-28 03:37:50* Test Item Value Reference Range Interpretation Comme nts NA (test code = 1721927899) 139 mmol/L 135-145 K (test code = 7006869813) 4.9 mmol/L 3.5-5.0 CL (test code = 5734109107) 101 mmol/L 98-108 CO2 TOTAL (test code = 0668629834) 31 mmol/L 23-31 AGAP (test code = 8745453571) 7 2-16 BUN (test code = 8296176413) 18 mg/dL 7-23 GLUCOSE (test code = 7820954469) 110 mg/dL 70-110 CREATININE (test code = 7300744061) 0.64 mg/dL 0.60-1.25 TOTAL BILI (test code = 3505833781) 0.6 mg/dL 0.1-1.1 CALCIUM (test code = 3034698880) 9.2 mg/dL 8.6-10.6 T PROTEIN (test code = 8428263561) 7.3 g/dL 6.3-8.2 ALBUMIN (test code = 3527977461) 4.6 g/dL 3.5-5.0 ALK PHOS (test code = 1004116339) 55 U/L 34-122 ALTv (test code = 1742-6) 32 U/L 5-50 AST(SGOT) (test code = 2459478944) 28 U/L 13-40 eGFR (test code = 5331277913) 131.3 mL/min/1.73m2 GERMÁN (test code = GERMÁN) Association of Glomerular Filtration Rate (GFR) and Staging of Kidney Disease* + + +- +| GFR (mL/min/1.73 m2) ?| With Kidney Damage ?| ?Without Kidney Damage+ ------+ ----+ ------+| ?>90 ?| ?Stage one ?| ? Normal ?+ -+ + -+| ?60-89 ?| ?Stage two ?| ? Decreased GFR ? + + +- +| ?30-59 ?| ?Stage three ?| ? Stage three ? + + +- +| ?15-29 ?| ?Stage four ? | ? Stage four ?+ -+ + -+| ?<15 (or dialysis) ? ?| ?Stage five ? | ? Stage five ?+ -+ + -+ *Each stage assumes the associated GFR level has been in effect for at least three months. ?Stages 1 to 5, with or without kidney disease, indicate chronic kidney disease. Notes: Determination of stages one and two (with eGFR >59mL/min/1.73 m2) requires estimation of kidney damage for at least three months as defined by structural or functional abnormalities of the kidney, manifested by either:Pathological abnormalities or Markers of kidney damage (including abnormalities in the composition of the blood or urine or abnormalities in imaging tests). [facility] RZ5899-16-24 18:37:451. No acute cardiopulmonary abnormalities are identified. RL: 2121 ORDERING PHYSICIAN: MARGOT OLSEN CLINICAL HISTORY: cough TECHNIQUE: 2 view radiographs of the chest were performed. COMPARISON: none FINDINGS: Single similar calcified granuloma right lower lobe. Otherwise the lungsare expanded and clear. No evidence of pleural effusions or pneumothoracesare identified. The cardiomediastinal silhouette is within normal limits.No acute osseous abnormalities are identified. Comb, Radiant Results Inft User - 02/16/2021 1:38 PM CDT ORDERING PHYSICIAN: MARGOT OLSENCLINICAL HISTORY: cough TECHNIQUE: 2 view radiographs of the chest were performed.COMPARISON: noneFINDINGS:Single similar calcified granuloma right lower lobe. Otherwise the lungsare expanded and clear.No evidence of pleural effusions or pneumothoracesare identified. The cardiomediastinal silhouette is within normal limits.No acute osseous abnormalities are identified.IMPRESSION1. No acute cardiopulmonary abnormalities are identified. RL: 2121 [facility] Date/Time Note Provider Source 2023-07-27 12:59:23 9707-55-54P26:59:23Formatting of this no te might be different from the original.Report given to TIFFANY Barajas 64992-0Vlbqshkev department MrlqKL5542-89-58Y88:59:36Emergency department NoteTXT1.2.840.397277.1.13.104.2.7.2.918981 |[id number] for patient wzsf72099-3VlosLAPIBTDACJOIxjltrspt C-CDA narrative [id number] Sargent RN[facility] - [address] Sf[id number] AENTCYLIUBIQTQH7540-78-87L93:59:361.2.840.1 85475.1.72.3.15|1.2.840.115874.1.13.104.2.7 .2.727879_[id number] Kelli Sargent RN [facility] 2023-07-27 11:37:10 3155-21-27U67:37:10Formatting of this no te might be different from the original.Safety NoteBed low/locked, side rails up x2, call light within reach, patient verbalized understanding of how/[place] [address]-8Ouglfqbyn department IzybJS1019-96-25N69:37:16[facility]st[facility] NoteTXT1.2.840.929293.1.13.104.2.7.2.055831 |[id number] for patient dgzk08471-8QqhoGPEBWBBVXSWYznmuyoyc C-CDA narrative text[address] Trah[id number] QQXPHRVDVLSXSAY3218-95-98B55:37:161.2.840.1 99095.1.72.3.15|1.2.840.394602.1.13.104.2.7 .2.727879_[id number] [facility] 2023-07-27 11:05:57 0454-02-68B46:05:57Formatting of this no te might be different from the original.Pt arrived via private car with c/o dizziness that started "around 9 this morning". States that the dizziness is worse when he moves his head. 93171-0Oksalotjl department Triage mlvaHD3004-51-86Q12:08:40[facility] department Triage noteTXT1.2.840.822520.1.13.104.2.7.2.926807 |[id number] for patient eqkg96346-5Vudxjypgb department NoteLNNARRATIVEFormatted C-CDA narrative [id number] REIS[address] Pz[id number] ZBBCSCKKQZEJACK5461-46-02F75:08:401.2.840.1 39856.1.72.3.15|1.2.840.282721.1.13.104.2.7 .2.727879_[id number] Kavitha Covington RN [facility] 2023-07-27 10:55:00 8255-06-96T15:55:00Formatting of this no te is different from the original.[facility] Emergency Department NotePatient Name: Isaac Mayo of : 1970 52 year old maleTreatment Room: [facility]UK1Mkrjdkt Record Number: [id number] Care Physician: PATIENT DOES NOT HAVE A PCPPatient Escorted by: Self [9]Mode of Arrival: Personal means [1]EMS 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 He reports he was sitting in his test working when the spinning sensation came on. He feels better while sitting and being still and worse with movement of his head or with attempts at walking. No nausea or vomiting. No blurry vision. He denies symptoms in the past. No medications taken for symptoms. No chest pain or pressure. No weakness to his arms or legs. He does have history of diabetes, high blood pressure as well as high cholesterol.Here for evaluation.Past Medical History/Immunizations:Past Medical History:Diagnosis DateDiabetes mellitusEsophageal refluxHyperlipidemiaHypertensionLeft knee pain 10/29/2015Tetanus received in last 5 years: UnknownChildhood immunizations: Nr-hj-hwnuTabruqpwx:No Known AllergiesPast Social History:Tobacco UseNever smoked or used smokeless tobacco.Past Surgical History:Past Surgical History:Procedure Laterality DateOTHERLft knee 2, Right knee 1.Review of Systems:Review of SystemsConstitutional: Negative for chills and fever.Respiratory: Negative for cough and shortness of breath.Cardiovascular: Negative for chest pain.Gastrointestinal: Negative for abdominal pain and vomiting.Genitourinary: Negative for dysuria.Musculoskeletal: Negative for arthralgias, neck pain and neck stiffness.Skin: Negative for wound.Neurological: Positive for dizziness.Psychiatric/Behavioral: Negative for agitation.Endocrine: Negative for goiter.Physical Exam:ED Triage Vitals [07/27/23 1107]Weight 97.5 kg (215 lb)Actual or estimated Estimated by patient/family reportHeight 1.829 m (6')BP (!) 148/99Pulse 75Resp 16Temp 36.8 ?C (98.2 ?F)Temp source OralSpO2 99 %Measured on Room airPhysical ExamVitals and nursing note reviewed.Constitutional:Appearance: Normal appearance. He is normal weight.HENT:Head: Normocephalic and atraumatic.Cardiovascular:Rate and Rhythm: Normal rate and regular rhythm.Pulses: Normal pulses.Pulmonary:Effort: Pulmonary effort is normal. No respiratory distress.Breath sounds: No stridor. No wheezing or rhonchi.Abdominal:General: There is no distension.Palpations: Abdomen is soft. There is no mass.Tenderness: There is no abdominal tenderness. There is no guarding.Hernia: No hernia is present.Musculoskeletal:General: Normal range of motion.Cervical back: Normal range of motion and neck supple.Skin:General: Skin is warm and dry.Neurological:General: No focal deficit present.Mental Status: He is alert and oriented to person, place, and time.Comments: Speech is clear.No facial asymmetry.Handgrip right was left.Muscle strength is 5/5 to upper extremities and lower extremities bilaterally.Radiology:No orders to displayLab Results:Lab ResultsCBC WITH DIFF - AbnormalResult Value Ref RangeWBC 5.39 4.20 - 10.70 10*3/?LRBC 4.78 4.26 - 5.52 10*6/?LHGB 15.3 12.2 - 16.4 g/dLHCT 44.6 38.4 - 49.3 %MCV 93.3 81.7 - 95.6 fLMCH 32.0 26.1 - 32.7 pgMCHC 34.3 31.2 - 35.0 g/dLRDW-SD 42.0 38.5 - 51.6 fLRDW-CV 12.2 12.1 - 15.4 %PLT 235 150 - 328 10*3/?LMPV 10.2 9.8 - 13.0 fLNRBC/100 WBC 0.0 0.0 - 10.0 /100 WBCsNRBC x10^3 <0.01 10*3/?LGRAN MAT (NEUT) % 59.9 %IMM GRAN % 0.40 %LYMPH % 30.1 %MONO % 8.0 %EOS % 0.7 %BASO % 0.9 %GRAN MAT x10^3(ANC) 3.23 1.99 - 6.95 10*3/uLIMM GRAN x10^3 <0.03 0.00 - 0.06 10*3/uLLYMPH x10^3 1.62 1.09 - 3.23 10*3/uLMONO x10^3 0.43 0.36 - 1.02 10*3/uLEOS x10^3 0.04 (*) 0.06 - 0.53 10*3/uLBASO x10^3 0.05 0.01 - 0.09 10*3/uLPOCT GLUCOSE (AUTOMATED) - NormalPOCT GLU 97 70 - 110 mg/dLCOMP. METABOLIC PANEL (43272)NA 137 135 - 145 mmol/LK 4.1 3.5 - 5.0 mmol/LCL 100 98 - 108 mmol/LCO2 TOTAL 27 23 - 31 mmol/LAGAP 10 2 - 16BUN 20 7 - 23 mg/dLGLUCOSE 110 70 - 110 mg/dLCREATININE 0.70 0.60 - 1.25 mg/dLTOTAL BILI 0.7 0.1 - 1.1 mg/dLCALCIUM 9.7 8.6 - 10.6 mg/Jose PROTEIN 8.2 6.3 - 8.2 g/dLALBUMIN 4.8 3.5 - 5.0 g/dLALK PHOS 91 34 - 122 U/LALTv 38 5 - 50 U/LAST(SGOT) 32 13 - 40 U/LeGFR 110.2 mL/min/1.88o4NQW:If EKG completed, see Procedure Note.Orders and Treatments:Orders Placed This EncounterProceduresPOCT GLUCOSE (AUTOMATED)CBC WITH DIFFCOMP. METABOLIC PANEL (68134)Orders Placed This EncounterMedicationsmeclizine (TRAVEL-EASE (MECLIZINE)) tablet 25 mgNaCl 0.9% (NS) bolus infusion 1,000 mLamLODIPine 2.5 mg tabletNaCl 0.9% (NS) bolus infusion 1,000 mLdiazePAM (VALIUM) injection 5 mgFirst Provider Eval:ED EventsDate/Time Event User Jidpnaxs56/04/24 1111 Medical Screening Begins MARGOT OLSEN DO --07/27/23 1111 First Provider Evaluation MARGOT OLSEN DO --ED COURSEDiagnosis/Impression as of 07/27/23 1355VertigoProcedures:ProceduresMDM:Medical Decision MakingThe patient presents from home for evaluation for an episode of vertigo that started just prior to arrival while sitting at his desk at work. When he is sitting and still he feels okay. With movement of his head or attempts at walking he feels like he is spinning. No nausea or vomiting. No blurry vision. No medications for symptoms. He denies episodes like this in the past.Vital signs are stable in the ER.His speech is clear.No facial symmetry.Handgrip right close left.Muscle strength is 5/5 to upper extremities and lower extremities bilaterally.His heart is regular rhythm.No concern for stroke based on his current presentation.Suspect benign vertigo.Will check laboratory studies and give the patient oral Antivert.Will continue to monitor the patient here in the ER.Final disposition pending.1213 -the patient is doing well from ER.He feels better with sitting up and looking around the room but upon standing the dizziness returns.His laboratory studies are unremarkable.Will give the patient IV Valium as well as IV fluids.Will continue to monitor the patient here in the ER.Anticipate discharge home later.1354 - the patient is doing well here in the ER.His vertigo has resolved.He is able to get up and ambulate around the department without reproduction of his symptoms.He remained stable here in the ER and is okay for discharge home with PCP follow-up.Problems Addressed:Vertigo: acute illness or injuryAmount and/or Complexity of Data ReviewedLabs: ordered. Decision-making details documented in ED Course.RiskOTC drugs.Prescription drug management.Parenteral controlled substances.Flowsheet Documentation:Scoring Tools:No data recordedDisposition/Condition:ED DispositionED DispositionDisch - HomeConditionStableComment--Discharge Medications:Patient's MedicationsSTART taking these medicationsNo medications on fileCONTINUE taking these medications which have NOT CHANGEDAMLODIPINE 2.5 MG TABLET Take 1 tablet by mouth in the morning.ATORVASTATIN (LIPITOR) 10 MG TABLETMETFORMIN (GLUCOPHAGE) 500 MG TABLETSTART taking Modified Medications as PrescribedNo medications on fileSTOP taking these medicationsACETAMINOPHEN-CODEINE (TYLENOL #3) 300-30 MG TABLETAZITHROMYCIN (ZITHROMAX Z-AP) 250 MG TABLET Take 500 mg day 1, then 250 mg days 2 to 5.CYCLOBENZAPRINE 5 MG TABLET Take 1 tablet by mouth in the morning and 1 tablet at noon and 1 tablet in the evening.FLUTICASONE (FLONASE) 50 MCG/ACTUATION NASAL SPRAY Use 2 Sprays in each nostril daily.LISINOPRIL (PRINIVIL,ZESTRIL) 5 MG TABLETOMEPRAZOLE (PRILOSEC) 20 MG CAPSULE Take 1 Cap by mouth daily.Follow-up:Electronically signed by:Margot Olsen, 07/27/23 1355 64486-7Myvnffaii Emergency department JwrcZK3040-30-69L12:55:11Physician Emergency department NoteTXT1.2.840.774108.1.13.104.2.7.2.577218 |[id number] for patient qvqv41928-4Tggwumtqk department NoteLNNARRATIVEFormatted C-CDA narrative textUT[address] Vp[id number] RSARMGNJHENJLQV2241-41-99W59:55:111.2.840.1 99863.1.72.3.15|1..840.985969.1.13.104.2.7 .2.727879_[id number] [facility] 2023-02-10 07:33:54 2479-78-81D68:33:54Formatting of this no te might be different from the original.Written/verbal d/c 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 [address]-1Rvkercsms[address] ModjWE1202-38-75I79:36:04[facility] NoteTXT1.2.840.787891.1.13.104.2.7.2.619222 |[id number] for patient [id number] M. Barton RNUT76 Johnson [id number] JGSEZKJYHRCTHVG8662-90-09N81:36:041.2.840.1 88161.1.72.3.15|1.2.840.418670.1.13.104.2.7 .2.727879_[id number] Sailaja Mi RN [facility] 2023-02-10 07:06:45 7784-16-06V96:06:45Formatting of this no te might be different from the [place] [address]-4Lxdprabeh[address] ArteFA3134-53-73O27:07:02[facility] NoteTXT1.2.840.734999.1.13.104.2.7.2.703982 |[id number] for patient care[id number] EOSRHCJJVWSDWMI3390-48-65D36:07:021.2.840.1 51784.1.72.3.15|1.2.840.091546.1.13.104.2.7 .2.727879_[id number] [facility] 2023-02-10 05:29:11 3911-87-63M68:29:11Formatting of this no te might be different from the original.Woke up at 4 am, during regular morning routine cleared throat and coughed what appeared to be by pt's picture small dark red blood clot. Pt stated it's the first time this has happened. Only 1 time this morning. 80242-9Qaqyuryfu department Triage cagpFF6676-90-20W05:31:28[facility] Triage noteTXT1.2.840.970849.1.13.104.2.7.2.167379 |[id number] for patient [id number] Daniel RN[address] [id number] YANCEY COMMUNITY MEDICAL CENTERCVACPFLZKGHBTNZ0768-86-57E99:31:281.2.840.1 71294.1.72.3.15|1.2.840.633875.1.13.104.2.7 .2.727879_[id number] Li Daniel RN [facility] 2023-02-10 05:16:00 0959-11-40W19:16:00Formatting of this no te is different from the original.EMERGENCY DEPARTMENT [facility]Patient [facility]: [facility] of : 1970 52 year oldMRN: [id number] Room:[address] Care Physician: PATIENT DOES NOT HAVE A [facility] Patient Escorted by: Self [9]Mode of Arrival: Personal means [1]EMS 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 Pt stated it's the first time this has happened. Only 1 time this morning. HPI The patient is a 52-year-old gentleman who is a non-smoker who presents for 1 episode of hemoptysis. He states that in the morning he has issues with coughing up phlegm however, he is never coughed up blood. Denies any fever sinus issues. He denies any bleeding disorders. The patient presents for evaluation.History provided by: PatientCoughCough characteristics: ProductiveSputum characteristics: BloodyOnset quality: SuddenDuration: 1 hourTiming: ConstantChronicity: NewRelieved by: NothingWorsened by: NothingAssociated symptoms: no chest pain, no chills, no eye discharge, no fever, no headaches, no shortness of breath and no wheezing Past Medical History / Immunizations Past Medical History: Diagnosis Date Diabetes mellitus Esophageal reflux Hyperlipidemia Hypertension Left knee pain 10/29/2015 Tetanus received in last 5 years: NoChildhood immunizations: Xz-sd-cddcJqkz Surgical History Past Surgical History: Procedure Laterality Date OTHER Lft knee 2, Right knee 1. Allergies No Known AllergiesSocial History Tobacco Use Never smoked or used smokeless tobacco. Review of Systems Review of Systems Constitutional: Negative. Negative for chills, fatigue, fever and unexpected weight change. HENT: Negative. Eyes: Negative. Negative for discharge and itching. Respiratory: Positive for cough. Negative for chest tightness, shortness of breath and wheezing. Cardiovascular: Negative. Negative for chest pain and palpitations. Gastrointestinal: Negative. Negative for abdominal distention, abdominal pain, nausea and vomiting. Genitourinary: Negative. Negative for dysuria, urgency, frequency and flank pain. Musculoskeletal: Negative. Skin: Negative. Negative for color change, pallor and wound. Neurological: Negative. Negative for dizziness, syncope, light-headedness and headaches. Psychiatric/Behavioral: Negative. Negative for agitation and behavioral problems. All other systems reviewed and are negative.Endocrine: Endocrine negativePhysical Exam ED Triage Vitals [02/10/23 0531] Weight 99.3 kg (219 lb) Actual or estimated Estimated by patient/family report Height 1.829 m (6') BP 129/90 Pulse 65 Resp 16 Temp 36.7 ?C (98.1 ?F) Temp source Oral SpO2 100 % Measured on Room air Physical ExamVitals reviewed. Constitutional: Appearance: He is well-developed. HENT: Head: Normocephalic and atraumatic. Nose: Nose normal. Eyes: Conjunctiva/sclera: Conjunctivae normal. Neck: Trachea: No tracheal deviation. Cardiovascular: Rate and Rhythm: Normal rate and regular rhythm. Heart sounds: Normal heart sounds. No murmur heard. No friction rub. Pulmonary: Effort: Pulmonary effort is normal. No respiratory distress. Breath sounds: Normal breath sounds. No stridor. No wheezing or rales. Abdominal: General: Bowel sounds are normal. There is no distension. Palpations: Abdomen is soft. Tenderness: There is no abdominal tenderness. There is no guarding or rebound. Musculoskeletal: General: Normal range of motion. Cervical back: Normal range of motion and neck supple. Skin: General: Skin is warm and dry. Neurological: Mental Status: He is alert and oriented to person, place, and time. Cranial Nerves: No cranial nerve deficit. Sensory: No sensory deficit. Psychiatric: Behavior: Behavior normal. Labs Lab Results COMP. METABOLIC PANEL (88839) - Abnormal Result Value Ref Range NA 140 135 - 145 mmol/L K 4.0 3.5 - 5.0 mmol/L CL 101 98 - 108 mmol/L CO2 TOTAL 32 (*) 23 - 31 mmol/L AGAP 7 2 - 16 BUN 19 7 - 23 mg/dL GLUCOSE 148 (*) 70 - 110 mg/dL CREATININE 0.69 0.60 - 1.25 mg/dL TOTAL BILI 0.9 0.1 - 1.1 mg/dL CALCIUM 8.9 8.6 - 10.6 mg/dL T PROTEIN 7.6 6.3 - 8.2 g/dL ALBUMIN 4.4 3.5 - 5.0 g/dL ALK PHOS 66 34 - 122 U/L ALTv 26 5 - 50 U/L AST(SGOT) 25 13 - 40 U/L eGFR 119.9 mL/min/1.73m2 ACTIVATED PARTIAL THRMPLAS MELVIN - Normal APTT Patient 32 23 - 38 Seconds PROTHROMBIN TIME / INR - Normal PROTIME PATIENT 13.7 12.0 - 14.7 Seconds INR 1.1 CBC WITH DIFF WBC 7.04 4.20 - 10.70 10*3/?L RBC 4.65 4.26 - 5.52 10*6/?L HGB 15.1 12.2 - 16.4 g/dL HCT 43.8 38.4 - 49.3 % MCV 94.2 81.7 - 95.6 fL MCH 32.5 26.1 - 32.7 pg MCHC 34.5 31.2 - 35.0 g/dL RDW-SD 43.5 38.5 - 51.6 fL RDW-CV 12.6 12.1 - 15.4 % PLT 215 150 - 328 10*3/?L MPV 10.2 9.8 - 13.0 fL NRBC/100 WBC 0.0 0.0 - 10.0 /100 WBCs NRBC x10^3 <0.01 10*3/?L GRAN MAT (NEUT) % 50.6 % IMM GRAN % 0.90 % LYMPH % 37.1 % MONO % 8.7 % EOS % 2.0 % BASO % 0.7 % GRAN MAT x10^3(ANC) 3.57 1.99 - 6.95 10*3/uL IMM GRAN x10^3 0.06 0.00 - 0.06 10*3/uL LYMPH x10^3 2.61 1.09 - 3.23 10*3/uL MONO x10^3 0.61 0.36 - 1.02 10*3/uL EOS x10^3 0.14 0.06 - 0.53 10*3/uL BASO x10^3 0.05 0.01 - 0.09 10*3/uL Imaging CT CHEST PULMONARY ANGIOGRAM Final Result HISTORY: hemoptysis COMPARISON: none TECHNIQUE: CTA scan of the chest performed. Contiguous axial CT images were obtained from the thoracic inlet through the diaphragm after arterial phase injection of intravenous contrast. Multiplanar reformations were viewed on a PACS workstation. 3D VOLUME RENDERED MIP RECONSTRUCTIONS WERE PERFORMED AT A SEPARATE WORKSTATION AND SAVED TO THE PACS. CT scan done according to ALARA Technical quality: Technical quality: adequate. FINDINGS: There are no intraluminal filling defects to suggest pulmonary embolism. Thoracic aorta is not opacified. The thoracic aorta is normal caliber. No pleural or pericardial effusion. No thoracic adenopathy. No pulmonary edema or pneumonia. No bronchial wall thickening or air trapping. There is evidence for prior granulomatous disease. Images through the upper abdomen show fatty liver. Otherwise unremarkable. The bones and soft tissues are within normal limits. IMPRESSION 1. No evidence of pulmonary embolism. 2. Clear lungs. RL: 1105 1 CHEST 2 VW Final Result ORDERING CLINICIAN: KSENIA WYATT TECHNIQUE: 2 views of the chest were obtained. STUDY QUALITY: Adequate INDICATION: Hemoptysis COMPARISON: 11/27/2022 DISCUSSION: There is a stable calcified granuloma in the right lower lobe. The lungs are clear. The cardiac silhouette is within normal limits. The airway is midline. The mediastinal contour is normal. IMPRESSION No acute cardiopulmonary disease RL: 7802 AFC: 34451 End of report Orders and Treatments Orders Placed This Encounter Procedures XR CHEST [address] CHEST PULMONARY ANGIOGRAM CBC WITH DIFF ACTIVATED PARTIAL THRMPLAS MELVIN COMP. METABOLIC PANEL (37709) PROTHROMBIN TIME / INR Orders Placed This Encounter Medications iopamidol (ISOVUE 370-500 mL) injection 100 mL Procedures ProceduresNotes & MDM Patient was evaluated for an emergency medical condition related to Other (Cough up blood)History and/or review of systems is limited by:History limited: None.Diagnosis/Impression as of 02/10/23 0731 Hemoptysis Medical Decision MakingAmount and/or Complexity of Data ReviewedLabs: ordered.Radiology: ordered.RiskPrescription drug management.Limitations to patient care and compliance: none.Assessment/Summary:The patient is a 52-year-old male who presents for 1 episode hemoptysis. Hematological chemistry studies are within acceptable limits. CT of the chest is negative for PE or any masses. I referred the patient to pulmonary medicine as an outpatient. He is amenable to the plan. He will be discharged to follow-up. He can return for any questions or concerns.History, physical exam findings, results of visit, differential diagnosis, medication regimens and plan of future care have been considered. Additional MDM may be found in the ED course. Differential diagnosis considered and final disposition made based on information gathered during evaluation and may not be completely ruled out or specifically listed. Vital signs were rechecked before final disposition.Diagnosis Final diagnoses: [R04.2] Hemoptysis (Primary) Disposition & Follow Up ED Disposition ED Disposition Disch - Home Condition Stable Comment -- Patient's Medications START taking these medications No medications on file CONTINUE taking these medications which have NOT CHANGED ACETAMINOPHEN-CODEINE (TYLENOL #3) 300-30 MG TABLET ATORVASTATIN (LIPITOR) 10 MG TABLET AZITHROMYCIN (ZITHROMAX Z-AP) 250 MG TABLET Take 500 mg day 1, then 250 mg days 2 to 5. CYCLOBENZAPRINE 5 MG TABLET Take 1 tablet by mouth in the morning and 1 tablet at noon and 1 tablet in the evening. FLUTICASONE (FLONASE) 50 MCG/ACTUATION NASAL SPRAY Use 2 Sprays in each nostril daily. LISINOPRIL (PRINIVIL,ZESTRIL) 5 MG TABLET METFORMIN (GLUCOPHAGE) 500 MG TABLET OMEPRAZOLE (PRILOSEC) 20 MG CAPSULE Take 1 Cap by mouth daily. START taking Modified Medications as Prescribed No medications on file STOP taking these medications No medications on file Contact information for follow-up Pcp, Patient Does Not Have A Relationship: PCP - General [address] [place] [id number] Ksenia Wyatt Jr. MDClinical Laboratory Administrative Director [facility] Emergency DepartmentDragon Dictation Software is used frequently and may produce errors. Promptly contact for obvious discrepancies. Ksenia Wyatt MD02/10/23 [id number] Emergency department [id number] Emergency department [id number] |[id number] for patient care[address] [id number] [id number] [facility]
--- NOTE | 2024-01-01 11:12 | RAD REPORT ---
EXAM DESCRIPTION: CT - Head Brain Wo Cont - 01/01/2024 10:58 am CLINICAL HISTORY: Headache;Dizziness COMPARISON: No comparisons TECHNIQUE: All CT scans are performed using dose optimization technique as appropriate and may inclu de automated exposure control or mA/KV adjustment according to patient size. FINDINGS: No intracranial hemorrhage, hydrocephalus or extra-axial fluid collection.No areas of brai n edema or evidence of midline shift. The paranasal sinuses and mastoids are clear. The calvarium is intact. IMPRESSION: No acute intracranial abnormality.
[2024-01-01] MEDS ORDERED: KETOROLAC 30 MG/ML INJ ONE (11:24)
[2024-01-01] MEDS ORDERED: MECLIZINE HCL 12.5 MG TAB ONE (11:37)
[2024-01-01 11:45] LABS: Absolute Lymphocytes (CBC) 1.3 K/uL (0.7-4.9); Absolute Monocytes 0.4 K/uL (0.1-1.3); Absolute Neutrophil 4.1 K/uL (1.8-8.0); Basophils % 0.8 % (0-1.3); Eosinophils % 0.6 % (0-4.4); Hematocrit 44.4 % (39.6-49.0); Hemoglobin 14.9 g/dL (13.6-17.9); Lymphocytes % 22.2 % (15.3-44.8); MCH 31.6 pg (27.0-35.0); MCHC 33.5 g/dL (32.0-36.0); MCV 94.1 fL (80-100); MPV 8.5 fL (7.6-11.3); Monocytes % 6.7 % (3.3-12.3); Neutrophils % 69.7 % (41.7-73.7); Platelets 240 thou/uL (152-406); RBC Red Blood Cell Count 4.72 M/uL (4.33-5.43); Red Cell Distribution Width 13.9 % (12.1-15.2)
[2024-01-01 12:01] LABS: Albumin 4.1 g/dL (3.4-5.0); Albumin/Globulin Ratio 1.2 (1.1-1.8); Anion Gap 6.9 mEq/L (5.0-15.0); Bilirubin Total 0.5 mg/dL (0.2-1.0); Globulin 3.5 g/dL (2.3-3.5); Potassium 3.9 mEq/L (3.5-5.1); Protein, Total 7.6 g/dL (6.4-8.2)
--- NOTE | 2024-01-01 12:34 | EDPHYS ---
Physician Documentation [facility] Name: Isaac Sparks Jr Age: 53 yrs Sex: Male : 1970 Arrival Date: 01/01/2024 Time: 10:24 Bed 7 Private MD: ED Physician Padmaja Munoz HPI: 12/31 12:29 This 53 yrs old Male presents to ER via Ambulatory with complaints of sp3 Headache, Dizziness. 12:29 53-year-old male with history of diabetes and hyperlipidemia presents with chief sp3 complaint headache and vertigo/dizziness for the last 7 to 8 days. Patient try to get into his PCPs office Dr. Christiano Munoz but was unable to and so now presents here for his concerns. He denies any ringing in the ear, trauma, changes in vision, other neurological symptoms, focal weakness, speech changes, neck pain, fever, URI symptoms, chest pain, shortness of breath, abdominal pain, nausea, vomiting, diarrhea, back pain, syncope, near syncope, rash, or any other signs or symptoms on ROS at this time.. Historical: - Allergies: 10:33 No Known Allergies; bp - PMHx: 10:33 Diabetes - NIDDM; High Cholesterol; bp - Immunization history:: Adult Immunizations up to date. - Infectious Disease History:: Denies. - Social history:: Smoking status: Patient denies any tobacco usage or history of. ROS: 12:31 Constitutional: Negative for fever, chills, and weight loss, Eyes: Negative for injury, sp3 pain, redness, and discharge, ENT: Negative for injury, pain, and discharge, Neck: Negative for injury, pain, and swelling, Cardiovascular: Negative for chest pain, palpitations, and edema, Respiratory: Negative for shortness of breath, cough, wheezing, and pleuritic chest pain, Abdomen/GI: Negative for abdominal pain, nausea, vomiting, diarrhea, and constipation, Back: Negative for injury and pain, MS/Extremity: Negative for injury and deformity, Skin: Negative for injury, rash, and discoloration, Psych: Negative for depression, anxiety, suicide ideation, homicidal ideation, and hallucinations, Allergy/Immunology: Negative for hives, rash, and allergies, Endocrine: Negative for neck swelling, polydipsia, polyuria, polyphagia, and marked weight changes, Hematologic/Lymphatic: Negative for swollen nodes, abnormal bleeding, and unusual bruising, Exam: 12:31 Constitutional: This is a well developed, well nourished patient who is awake, alert, sp3 and in no acute distress. Head/Face: Normocephalic, atraumatic. Eyes: Pupils equal round and reactive to light, extra-ocular motions intact. Lids and lashes normal. Conjunctiva and sclera are non-icteric and not injected. Cornea within normal limits. Periorbital areas with no swelling, redness, or edema. ENT: Nares patent. No nasal discharge, no septal abnormalities noted. External auditory canals are clear. Oropharynx with no redness, swelling, or masses, exudates, or evidence of obstruction, uvula midline. Mucous membranes moist. Neck: Trachea midline, no thyromegaly or masses palpated, and no cervical lymphadenopathy. Supple, full range of motion without nuchal rigidity, or vertebral point tenderness. No Meningismus. Chest/axilla: Normal chest wall appearance and motion. Nontender with no deformity. No lesions are appreciated. Cardiovascular: Regular rate and rhythm with a normal S1 and S2. No gallops, murmurs, or rubs. Normal PMI, no JVD. No pulse deficits. Respiratory: Lungs have equal breath sounds bilaterally, clear to auscultation and percussion. No rales, rhonchi or wheezes noted. No increased work of breathing, no retractions or nasal flaring. Abdomen/GI: Soft, non-tender, with normal bowel sounds. No distension or tympany. No guarding or rebound. No evidence of tenderness throughout. Back: No spinal tenderness. No costovertebral tenderness. Full range of motion. Skin: Warm, dry with normal turgor. Normal color with no rashes, no lesions, and no evidence of cellulitis. MS/ Extremity: Pulses equal, no cyanosis. Neurovascular intact. Full, normal range of motion. Neuro: Awake and alert, GCS 15, oriented to person, place, time, and situation. Cranial nerves II-XII grossly intact. Motor strength 5/5 in all extremities. Sensory grossly intact. Cerebellar exam normal. Normal gait. Psych: Awake, alert, with orientation to person, place and time. Behavior, mood, and affect are within normal limits. 12:31 Neuro: Dizziness and vertigo is reproducible with movement., Vital Signs: 10:33 BP 162 / 88; Pulse 65; Resp 16; Temp 98; Pulse Ox 100% ; bp 12:58 BP 126 / 80; Pulse 62; Resp 18 S; Pulse Ox 100% on R/A; kc6 MDM: 10:39 Patient medically screened. sp3 12:31 Data reviewed: vital signs, nurses notes, lab test result(s), radiologic studies. ED sp3 course: Consider central versus peripheral vertigo. Clinically ruled out labyrinthitis given no other auditory symptoms. CT scan of the head is negative and drawn labs are also negative. Patient is improved with meclizine and ketorolac IV. Patient will follow-up with both PCP and Dr. Allison for continued management. Will discharge home on meclizine.. 12/31 10:40 Order name: CBC with Diff; Complete Time: 12:19 sp3 12/31 10:40 Order name: CMP; Complete Time: 12:19 sp3 12/31 10:40 Order name: CT Head Brain wo Cont; Complete Time: 11:14 sp3 12/31 10:40 Order name: IV Saline Lock; Complete Time: 11:35 sp3 12/31 10:40 Order name: Labs collected and sent; Complete Time: 11:35 sp3 Administered Medications: 11:35 Drug: Ketorolac IVP 15 mg IVP once Route: IVP; Site: right antecubital; kc6 12:58 Follow up: Response: No adverse reaction; Pain is decreased kc6 11:40 Drug: Meclizine PO 25 mg PO once Route: PO; kc6 12:58 Follow up: Response: No adverse reaction kc6 Disposition Summary: 01/01/24 12:33 Discharge Ordered Notes: Location: Home sp3 Condition: Stable sp3 Diagnosis - Headache, peripheral vertigo sp3 Followup: sp3 - With: Private Physician - When: Upon discharge from the Emergency Department - Reason: Continuance of care Followup: sp3 - With: James Allison MD - When: Upon discharge from the Emergency Department - Reason: Recheck today's complaints Discharge Instructions: - Discharge Summary Sheet sp3 - Vertigo sp3 Forms: - Medication Reconciliation Form sp3 - Antibiotic Education sp3 - Prescription Opioid Use sp3 - Patient Portal Instructions sp3 - Leadership Thank You Letter sp3 Prescriptions: - Meclizine 25 mg Oral Tablet - take 1 tablet ORAL route every 8 hours As needed; 30 tablet; Refills: 0, sp3 Product Selection Permitted Signatures: Dispatcher [employer] Ravindra Bailey, RN RN bp Padmaja Munoz MD MD sp3 Lyly Daniel RN RN kc6 Corrections: (The following items were deleted from the chart) 10:40 10:40 Head Brain Wo Cont+CT.RAD.BRZ ordered. EDMS EDMS 10:40 10:40 CBC+H.LAB.BRZ ordered. EDMS EDMS 10:40 10:40 COMPREHENSIVE METABOLIC PANEL+C.LAB.BRZ ordered. EDMS EDMS
--- NOTE | 2024-01-01 12:34 | ER ---
Nurse's Notes [facility] Name: Isaac Sparks Jr Age: 53 yrs Sex: Male : 1970 Arrival Date: 01/01/2024 Time: 10:24 Bed 7 Private MD: Diagnosis: Headache, peripheral vertigo Presentation: 12/31 10:33 Chief complaint: Patient states: FALCON AND DIZZY x8 DAYS, UNABLE TO SEE PCP. Coronavirus bp screen: At this time, the client does not indicate any symptoms associated with coronavirus-19. Ebola Screen: No symptoms or risks identified at this time. Initial Sepsis Screen: Does the patient meet any 2 criteria? No. Patient's initial sepsis screen is negative. Does the patient have a suspected source of infection? No. Patient's initial sepsis screen is negative. Risk Assessment: Do you want to hurt yourself or someone else? Patient reports no desire to harm self or others. Onset of symptoms is unknown. 10:33 Method Of Arrival: Ambulatory bp 10:33 Acuity: RACHID 3 bp Triage Assessment: 10:33 Headache History: The patient has had previous headaches and this one is similar to bp previous episodes. General: Appears in no apparent distress. Behavior is cooperative, appropriate for age, anxious. Pain: Complains of pain in head Pain currently is 5 out of 10 on a pain scale. Pain began 2-3 days ago. Also complains of no other associated symptoms. Neuro: Level of Consciousness is awake, alert, obeys commands, Oriented to Appropriate for age Reports dizziness, headache. Historical: - Allergies: 10:33 No Known Allergies; bp - PMHx: 10:33 Diabetes - NIDDM; High Cholesterol; bp - Immunization history:: Adult Immunizations up to date. - Infectious Disease History:: Denies. - Social history:: Smoking status: Patient denies any tobacco usage or history of. Screenin:45 [facility] ED Fall Risk Assessment (Adult) History of falling in the last 3 months, kc6 including since admission No falls in past 3 months (0 pts) Confusion or Disorientation No (0 pts) Intoxicated or Sedated No (0 pts) Impaired Gait No (0 pts) Mobility Assist Device Used No (0 pt) Altered Elimination No (0 pt) Score/Fall Risk Level 0 - 2 = Low Risk. Abuse screen: Denies threats or abuse. Denies injuries from another. Nutritional screening: No deficits noted. Tuberculosis screening: No symptoms or risk factors identified. Assessment: 11:45 General: Appears in no apparent distress. comfortable, well groomed, well developed, kc6 Behavior is calm, cooperative, appropriate for age. Neuro: Level of Consciousness is awake, alert, obeys commands, Oriented to person, place, time, situation, Appropriate for age Reports dizziness, headache. Cardiovascular: Capillary refill < 3 seconds. Respiratory: Airway is patent Trachea midline Respiratory effort is even, unlabored, Respiratory pattern is regular, symmetrical. GI: No signs and/or symptoms were reported involving the gastrointestinal system. : No signs and/or symptoms were reported regarding the genitourinary system. EENT: No signs and/or symptoms were reported regarding the EENT system. Derm: No signs and/or symptoms reported regarding the dermatologic system. Skin is intact, is healthy with good turgor, Skin is pink, warm \T\ dry. Musculoskeletal: No signs and/or symptoms reported regarding the musculoskeletal system. Circulation, motion, and sensation intact. Capillary refill < 3 seconds, Range of motion: intact in all extremities. 12:58 Reassessment: Patient appears in no apparent distress at this time. No changes from kc6 previously documented assessment. Patient and/or family updated on plan of care and expected duration. Pain level reassessed. Patient is alert, oriented x 3, equal unlabored respirations, skin warm/dry/pink. Vital Signs: 10:33 BP 162 / 88; Pulse 65; Resp 16; Temp 98; Pulse Ox 100% ; bp 12:58 BP 126 / 80; Pulse 62; Resp 18 S; Pulse Ox 100% on R/A; kc6 ED Course: 10:29 Patient arrived in ED. mr 10:30 Padmaja Munoz MD is Attending Physician. sp3 10:33 Arm band placed on. bp 10:34 Triage completed. bp 11:00 CT Head Brain wo Cont In Process Unspecified. EDMS 11:15 Patient placed in an exam room, on a stretcher. ll1 11:31 Tiera Dye, RN is Primary Nurse. db 11:35 Lyly Daniel, RN is Primary Nurse. kc6 11:45 Patient has correct armband on for positive identification. Bed in low position. Call kc6 light in reach. Side rails up X 1. Pulse ox on. NIBP on. 11:45 Inserted saline lock: 20 gauge in right antecubital area, using aseptic technique. kc6 Blood collected. 12:32 James Allison MD is Referral Physician. sp3 13:02 No provider procedures requiring assistance completed. IV discontinued, intact, kc6 bleeding controlled, No redness/swelling at site. Pressure dressing applied. Administered Medications: 11:35 Drug: Ketorolac IVP 15 mg IVP once Route: IVP; Site: right antecubital; kc6 12:58 Follow up: Response: No adverse reaction; Pain is decreased kc6 11:40 Drug: Meclizine PO 25 mg PO once Route: PO; kc6 12:58 Follow up: Response: No adverse reaction kc6 Medication: 13:02 VIS not applicable for this client. kc6 Outcome: 12:33 Discharge ordered by MD. sp3 13:02 Discharged to home ambulatory, kc6 13:02 Condition: improved 13:02 Discharge instructions given to patient, Instructed on discharge instructions, follow up and referral plans. medication usage, Demonstrated understanding of instructions, follow-up care, medications, Prescriptions given X 1, 13:02 Patient left the ED. kc6 Signatures: Dispatcher [employer] EDMO Sada Pereira, Reg Ravindra Mojica, RN RN Syd Vargas RN RN ll1 Padmaja Munoz MD MD sp3 Lyly Daniel RN RN kc6 Tiera Dye RN RN db
[2024-01-01 13:27] VITALS: BP 126/80; TEMP 98; O2SAT 100
== END 2024-01-01 13:02 | disposition home or self-care (01) ==
LOC: ER 10:24
DX: R51.9 Headache, unspecified (principal); H81.399 Other peripheral vertigo, unspecified ear
CPT/HCPCS: 85025; 36415; 80053; 70450; 96374; 99284; J8597

== ENCOUNTER 2024-08-23 08:44 | Emergency (ER) | payer BC ==
--- OUTSIDE RECORDS SUMMARY | 2024-08-23 08:48 | XMS REPORT | Continuity of Care Document ---
Author Name Unknown Address [address] [facility] [address] [place] [address] [facility] Address [address] [facility] [address] [place] [address] Care Team Providers Care Rendering Equipment Tender Name Role Phone Augustus LUQUE, Michela Stephenson Primary Care Physician Christiano Munoz Attending Clinician Unavailable MARGOT OLSEN Attending Clinician Unavailab Mragot Banerjee DO Attending Clinician [phone] LAY RODRÍGUEZ Attending Clinician Unavailable LAY RODRÍGUEZ Attending Clinician Unavailable KSENIA WYATT Attending Clinician Unavailable Ksenia Wyatt MD Attending Clinician [phone] Lauren Berry MD Attending Clinician [phone] LAUREN BERRY Attending Clinician Unavailjess Rojas Attending Clinician Unavailable Michela Morataya MD Attending Clinician [phone] MICHELA MORATAYA Attending Clinician Unava ilable LAB90 Attending Clinician Unavailable Doctor Unassigned, [place] Attending Clinician U navailable Lab, Adc Fam Pob I Attending Clinician Unavailab Ethel Stoll Attending Clinician [phone] KSENIA WYATT Admitting Clinician Unavailable LAUREN BERRY Admitting Clinician Unavailjess Rojas Admitting Clinician Unavailable Payers Payer Name Policy Type Policy Number Effective Date Expirati on Date Source [facility] STATE [id number] 2018 00:00:00 [employer] - CHOICE PLUS - NAP (POS II) [id number] 2012 00:00:00 [employer] HMO [id number] 2015 00:00:00 Problems Condition Name Condition Details Condition Category Status Onset Date Resolution Date Last Treatment Date Treating Clinician Comments Source Other chest pain Other chest pain Disease Active 11-27 00:00: 00 [facility] Left knee pain Left knee pain Disease Active 10-28 00:00: 00 [facility] Left knee pain Left knee pain Disease Active 10-28 00:00: 00 [facility] No known active problems No known active problems Disease Radha Antonio Allergies, Adverse Reactions, Alerts Allergy Name Allergy Type Status Severity Reaction(s) Onset Date Inactive Date Treating Clinician Comments Source NO KNOWN ALLERGIE S Drug Class Active [facility] Social History Social Habit Start Date Stop Date Quantity Comments Source Gender identity [facility] History of Social function 2023-07-27 00:00:00 2023-07-27 00:00:00 [facility] Alcohol intake 2023-07-27 00:00:00 2023-07-27 00:00:00 0 /d [facility] Exposure to SARS-CoV-2 (event) 2022-11-17 00:00:00 2022-11-27 21:20:00 Not sure [facility] Tobacco use and exposure 2017-04-25 00:00:00 2017-04-25 00:00:00 Smokeless tobacco non-user [facility] Sex Assigned At 1970 00:00:00 1970 00:00:00 Radha Antonio Smoking Status Start Date Stop Date Source Never smoked tobacco [facility] Medications Ordered Medication Name Filled Medication Name Start Date Stop Date Current Medication? Ordering Clinician Indication Dosage Frequency Signature (SIG) Comments Components Source NaCl 0.9% (NS) bolus infusion 1,000 mL 07-27 19:00: 07-27 19:19 :00 No 1000mL at 999 mL/hr, 1,000 mL, IV Infusion, ONCE, 1 dose, On Maryann 07/27/23 at 1300, EDUARD [facility] diazePAM (VALIUM) injection 5 mg 07-27 18:15: 00 07-27 18:36 :00 No 5mg 5 mg, Slow IV Push, ONCE, 1 dose, On Maryann 07/27/23 at 1215, STAT [facility] NaCl 0.9% (NS) bolus infusion 1,000 mL 07-27 18:15: 00 07-27 18:56 :00 No 1000mL at 999 mL/hr, 1,000 mL, IV Infusion, ONCE, 1 dose, [facility] (TRAVEL-EAS E (MECLIZINE) ) tablet 25 mg 07-27 17:30: 00 07-27 17:24 :00 No 25mg 25 mg, Oral, ONCE, 1 dose, On Maryann 07/27/23 [facility] 1130[facility] amLOD[facility] 2.5 mg tablet 07-27 14:27: 32 Yes 2.5mg Take 1 tablet by mouth in the morning. [facility] iopamidol (ISOVUE 370-500 mL) injection 100 mL 02-10 12:45: 00 02-10 12:45 :00 No [id number] 100mL 100 mL, Intravenou s, ONCE, 1 dose, On Mon02/10/23 at 0745, Routine [facility] aspirin tablet 325 mg 11-28 03:45: 00 11-28 03:45 :00 No 325mg 325 mg, Oral, ONCE, 1 dose, On Mon11/27/22 at 2245, Routine [facility] ketorolac (TORADOL) injection 30 mg 11-28 03:30: 00 11-28 02:57 :00 No 30mg 30 mg, Slow IV Push, ONCE, 1 dose, On Mon11/27/22 at 2230, Routine [facility] NaCl 0.9% (NS) bolus infusion 1,000 mL 11-28 02:45: 00 11-28 04:00 :00 No 1000mL at 999 mL/hr, 1,000 mL, IV Infusion, ONCE, 1 dose, On Mon11/27/22 at 2145, STAT [facility] nitroglycer in (NITROL) 2 % ointment 0.5 Inch 11-28 02:45: 00 11-28 03:05 :00 No .5[in_u s] 0.5 Inch, Transderma l (Apply To Skin), ONCE, 1 dose, On Mon11/27/22 at 2145, EDUARD [facility] cyclobenzap rine 5 mg tablet 11-27 00:00: 00 07-27 00:00 :00 No [id number] 5mg Take 1 tablet by mouth in the morning and 1 tablet at noon and 1 tablet in the evening. [facility] doxycycline hyclate 100 mg capsule 11-27 00:00: 00 12-05 04:59 :00 No [id number] 100mg Take 1 capsule by mouth in the morning and 1 capsule in the evening. Do all this for 7 days. [facility] ibuprofen 800 mg tablet 11-27 00:00: 00 12-03 04:59 :00 No [id number] 800mg Take 1 tablet by mouth every 8 (eight) hours as needed for Pain (scale 4-6) for up to 5 days. [facility] Aspirin (Aspirin 81) 81 MG oral Tablet Delayed Response 08-20 13:36: 39 Yes 81mg Take 81 mg by mouth daily Radha Antonio Amlodipine Besylate 2.5 MG oral Tablet 2020-07 00:00: 00 Yes Radha Antonio methylPREDN ISolone 4 MG oral Tablet Therapy Pack 03-30 00:00: 00 Yes [id number] 1{ap} Take 1 ap by mouth See Admin Instructio ns Use as directed Radha Antonio Cyclobenzap rine HCl 10 MG oral Tablet 03-30 00:00: 00 Yes [id number] 10mg [id number] 3D Take 1 tablet (10 mg total) [...] 30 mg, Intramuscu lar, ONCE, 1 dose, [facility] 02/16/21 at 1430, EDUARD
Fa culty member approving Restricted medication : MARGOT OLSEN [facility] Triamcinolo ne Acetonide 55 MCG/ACT nasal Aerosol [...] 0 00:00: 00 07-27 00:00 :00 No [id number] Take 500 mg day 1, then 250 mg days 2 to 5. [facility] fluticasone (FLONASE) 50 mcg/actuati on nasal spray 2016-07 00:00: 00 07-27 00:00 :00 No [id number] 2{spray } Use 2 Sprays in each nostril daily. [facility] metFORMIN (GLUCOPHAGE ) 500 mg tablet 10-26 00:00: 00 Yes [facility] atorvastati n (LIPITOR) 10 mg tablet 10-26 00:00: 00 Yes [facility] lisinopril (PRINIVIL,Z ESTRIL) 5 mg tablet 10-26 00:00: 00 07-27 00:00 :00 No [facility] acetaminoph en-codeine (TYLENOL #3) 300-30 mg tablet 10-26 00:00: 00 07-27 00:00 :00 No [facility] omeprazole (PRILOSEC) 20 mg capsule 09-23 00:00: 00 07-27 00:00 :00 No 20mg Take 1 Cap by mouth daily. [facility] Vital Signs Vital Name Observation Time Observation Value Comments S ource Systolic blood pressure 2023-07-27 19:30:00 128 mm[Hg] [facility] Diastolic blood pressure 2023-07-27 19:30:00 91 mm[Hg] [facility] Heart rate 2023-07-27 19:30:00 54 /min [facility] Respiratory rate 2023-07-27 19:30:00 19 /min [facility] Oxygen saturation in Arterial blood by Pulse oximetry 2023-07-27 19:30:00 99 /min [facility] Body temperature 2023-07-27 19:00:00 36.67 Leila [facility] Body height 2023-07-27 17:07:00 182.9 cm [facility] Body weight 2023-07-27 17:07:00 97.523 kg [facility] BMI 2023-07-27 17:07:00 29.16 kg/m2 [facility] Systolic blood pressure 2023-02-10 12:30:00 123 mm[Hg] [facility] Diastolic blood pressure 2023-02-10 12:30:00 76 mm[Hg] [facility] Heart rate 2023-02-10 12:30:00 62 /min [facility] Respiratory rate 2023-02-10 12:30:00 18 /min [facility] Oxygen saturation in Arterial blood by Pulse oximetry 2023-02-10 12:30:00 100 /min [facility] Body temperature 2023-02-10 10:31:00 36.72 Leila [facility] Body height 2023-02-10 10:31:00 182.9 cm [facility] Body weight 2023-02-10 10:31:00 99.338 kg [facility] BMI 2023-02-10 10:31:00 29.70 kg/m2 [facility] Systolic blood pressure 2022-11-28 05:00:00 122 mm[Hg] [facility] Diastolic blood pressure 2022-11-28 05:00:00 75 mm[Hg] [facility] Heart rate 2022-11-28 05:00:00 57 /min Unive [facility] Respiratory rate 2022-11-28 05:00:00 19 /min [facility] Oxygen saturation in Arterial blood by Pulse oximetry 2022-11-28 05:00:00 97 /min [facility] Body temperature 2022-11-28 02:20:00 36.89 Leila [facility] Systolic blood pressure 2021-08-20 19:35:00 127 [...] Systolic blood pressure 2021-02-16 17:42:00 154 mm[Hg] [facility] Diastolic blood pressure 2021-02-16 17:42:00 84 mm[Hg] [facility] Heart rate 2021-02-16 17:42:00 69 /min [facility] Body temperature 2021-02-16 17:42:00 36.78 Leila [facility] Respiratory rate 2021-02-16 17:42:00 18 /min [facility] Body weight 2021-02-16 17:42:00 104.327 kg [facility] BMI 2021-02-16 17:42:00 31.19 kg/m2 [facility] Oxygen saturation in Arterial blood by Pulse oximetry 2021-02-16 17:42:00 99 /min [facility] Procedures Procedure Date / Time Performed Performing Clinician Source COMP. METABOLIC PANEL ([id number]) 2023-07-27 17:33:00 Magrot Olsen [facility] CBC WITH DIFF 2023-07-27 17:33:00 Margot Olsen [facility] POCT GLUCOSE (AUTOMATED) 2023-07-27 17:12:00 Margot Olsen [facility] CONSENT/REFUSAL FOR DIAGNOSIS AND TREATMENT 2023-07-27 16:56:31 Doctor Unassigned, [place] [facility] CT CHEST PULMONARY ANGIOGRAM 2023-02-10 11:47:25 Ksenia Wyatt [facility] XR CHEST 2 VW 2023-02-10 11:09:31 Ksenia Wyatt [facility] COMP. METABOLIC PANEL (83001) 2023-02-10 10:54:00 Ksenia Wyatt [facility] CBC WITH DIFF 2023-02-10 10:54:00 Ksenia Wyatt [facility] PROTHROMBIN TIME / INR 2023-02-10 10:54:00 Chuck Wyatt [facility] ACTIVATED PARTIAL THRMPLAS MELVIN 2023-02-10 10:54:00 Ksenia Wyatt [facility] CONSENT/REFUSAL FOR DIAGNOSIS AND TREATMENT 2023-02-10 10:16:12 Doctor Unassigned, [place] [facility] XR CHEST 2 VW 2022-11-28 04:27:17 [facility] 2022-11-28 03:38:00 [facility] TROP[facility] I 2022-11-28 02:48:00 Lauren Berry Uni [facility] COMP. METABOLIC PANEL ([id number]) 2022-11-28 02:48:00 Lauren Berry [facility] CONSENT/REFUSAL FOR DIAGNOSIS AND TREATMENT 2022-11-28 02:11:26 Doctor Unassigned, [place] [facility] NOTICE OF PRIVACY PRACTICES 2022-11-28 02:10:55 Doctor Unassigned, [place] [facility] ASSIGNMENT OF BENEFITS 2021-02-16 18:34:07 Malachito r Unassigned, [place] [facility] XR CHEST 2 VW 2021-02-16 18:08:44 Margot Olsen [facility] NOTICE OF PRIVACY PRACTICES 2021-02-16 17:55:08 Doctor Unassigned, [place] [facility] CONSENT/REFUSAL FOR DIAGNOSIS AND TREATMENT 2021-02-16 17:36:23 Doctor Unassigned, [place] [facility] Encounters Start Date/Time End Date/Time Encounter Type Admission Type Attending [facility] Care Facility Care Department Encounter ID Source 2024-04-23 13:50:00 [id number] [facility] 2024-03-05 10:13:00 [facility] [id number] [facility] 2024-01-28 13:57:00 [facility] [id number] [facility] 2023-10-06 10:01:00 [facility] [id number] [facility] 2023-09-25 09:27:01 [facility] [id number] [facility] 2023-07-14 10:09:01 [facility] [id number] [facility] 2023-02-06 16:07:01 [facility] [id number] [facility] 2022 08:29:02 [facility] [id number] [facility] 2022-11-01 14:52:03 [facility] [id number] [facility] 2021-05-24 11:08:48 Emergency [facility] [id number] [facility] 2023-07-27 11:12:00 2023-07-27 14:27:00 Emergency X MARGOT OLSEN [facility] ERT [id number] [facility] 2023-07-27 11:12:00 2023-07-27 14:27:00 Emergency Margot Olsen [facility] [id number] 350.1.13.10 4.2.7.2.686 [id number] [facility] 2023-02-10 05:34:00 2023-02-10 07:36:00 Emergency X KSENIA WYATT [facility] ERT [id number] [facility] 2023-02-10 05:34:00 2023-02-10 07:36:00 Emergency Ksenia Wyatt [facility] [id number] 350.1.13.10 4.2.7.2.686 [id number] [facility] 2022-11-27 21:22:00 2022-11-28 00:21:00 Emergency Lauren Berry [facility] [id number] 350.1.13.10 4.2.7.2.686 [id number] [facility] 2022-11-27 21:22:00 2022-11-28 00:21:00 Emergency X LAUREN BERRY [facility] ERT [id number] [facility] 2022-10-20 00:00:00 2022-10-20 00:00:00 Outpatient DeMattia_J VFP VFP [id number] [facility] 2021-08-20 13:45:00 2021-08-20 14:00:00 Office Visit Michela Morataya [place] [id number] 350.1.13.13 [id number] [id number] Radha [facility] 2021-04-09 11:30:00 2021-04-09 11:30:00 Outpatient MICHELA MORATAYA [id number] Radha [facility] 2021-04-06 11:30:00 2021-04-06 11:30:00 Outpatient MICHELA MORATAYA [id number] Radha [facility] 2021-03-30 11:30:00 2021-03-30 11:30:00 Outpatient MICHELA MORATAYA [id number] Radha [facility] 2021-03-17 00:00:00 2021-03-17 00:00:00 Outpatient MICHELA MORATAYA [id number] Radha [facility] 2021-03-12 00:00:00 2021-03-12 00:00:00 Outpatient MICHELA MORATAYA [id number] Radha [facility] 2021-03-10 10:15:00 2021-03-10 10:15:00 Outpatient LAB90 RADHA SUE [id number] Radha [facility] 2021-03-10 10:15:00 2021-03-10 10:15:00 Outpatient LAB90 RADHA SUE [id number] [facility] 2021-03-10 09:30:00 2021-03-10 09:30:00 Outpatient MICHELA MORATAYA [id number] Radha Antonio 2021-02-16 12:45:00 2021-02-16 14:47:00 Emergency Fritz Margot Mares [facility] 1..114 350.1.13.10 4.2.7.2.686 [id number] [facility] 2021-02-16 00:00:00 2021-02-16 00:00:00 Orders Only Doctor Unassigned, [place] [facility] 1..114 350.1.13.10 4.2.7.2.686 [id number] [facility] 2020-05-08 09:40:00 2020-05-08 09:40:00 Outpatient R [facility] [id number] [facility] 2020-05-06 13:29:21 2020-05-06 13:49:21 Laboratory Only Lab, [facility] Pob I [facility] [address] 1.114 350.1.13.10 4.2.7.2.686 [id number] 2020-05-06 13:29:21 2020-05-06 13:49:21 Laboratory Only Lab, [facility]am Pob I Ethel Rivera [facility] [address] 1.114 350.1.13.10 4.2.7.2.686 [id number] [facility] 2020-05-06 13:20:00 2020-05-06 13:20:00 Outpatient R [facility] [id number] [facility] 2020-05-06 00:00:00 2020-05-06 00:00:00 Letter (Out) Doctor Unassigned, [place] [facility] 1..114 350.1.13.10 4.2.7.2.686 [id number] 2020-05-06 00:00:00 2020-05-06 00:00:00 Letter (Out) Doctor Unassigned, [place] [facility] 1.2.840.114 350.1.13.10 4.2.7.2.686 [id number] [facility] Results Test Description Test Time Test Comments Results Result Co mments Source [facility] WITH [id number] 17:47:53* Test Item Value Reference Range Interpretation [...] 34.3 g/dL 31.2-35.0 RDW-SD (test code = 05374-1) 42.0 fL 38.5-51.6 RDW-CV (test code = 788-0) 12.2 % 12.1-15.4 PLT (test code = 777-3) 235 See_Comment [Automated messa ge] The system which generated this result transmitted reference range: 150 - 328 10*3/?L. The reference range was not used to interpret this result as normal/abnormal. MPV (test code = 38866-0) 10.2 fL 9.8-13.0 NRBC/100 WBC (test code = 6957518973) 0.0 See_Comment [Automated me ssage] The system which generated this result transmitted reference range: 0.0 - 10.0 /100 WBCs. The reference range was not used to interpret this result as normal/abnormal. NRBC x10^3 (test code = 5593632658) See_Comment [Automated messa ge] The system which generated this result transmitted reference range: 10*3/?L. The reference range was not used to interpret this result as normal/abnormal. GRAN MAT (NEUT) % (test code = 770-8) 59.9 % IMM GRAN % (test code = 1361337413) 0.40 % LYMPH % (test code = 736-9) 30.1 % MONO % (test code = 5905-5) 8.0 % EOS % (test code = 713-8) 0.7 % BASO % (test code = 706-2) 0.9 % GRAN MAT x10^3(ANC) (test code = 7184019904) 3.23 10*3/uL 1.99-6.95 IMM GRAN x10^3 (test code = 6244464215) 0.00-0.06 LYMPH x10^3 (test code = 731-0) 1.62 10*3/uL 1.09-3.23 MONO x10^3 (test code = 742-7) 0.43 10*3/uL 0.36-1.02 EOS x10^3 (test code = 711-2) 0.04 10*3/uL 0.06-0.53 L BASO x10^3 (test code = 704-7) 0.05 10*3/uL 0.01-0.09 Lab Interpretation (test code = 28343-7) Abnormal [facility] GLUCOSE (AUTOMATED)2023-07-27 17:13:23* Test Item Value Reference Range Interpretation Comme nts POCT GLU (test code = 6244618151) 97 mg/dL 70-110 Lab Interpretation (test cod e = 58896-4) Normal [facility] WITH [id number] 03:54:30* Test Item Value Reference Range Interpretation [...] 33.0 g/dL 31.2-35.0 RDW-SD (test code = 82499-6) 43.3 fL 38.5-51.6 RDW-CV (test code = 788-0) 12.7 % 12.1-15.4 PLT (test code = 777-3) 200 See_Comment [Automated messa ge] The system which generated this result transmitted reference range: 150 - 328 10*3/?L. The reference range was not used to interpret this result as normal/abnormal. MPV (test code = 27495-8) 10.2 fL 9.8-13.0 NRBC/100 WBC (test code = 4394651384) 0.0 See_Comment [Automated [employer] ssage] The system which generated this result transmitted reference range: 0.0 - 10.0 /100 WBCs. The reference range was not used to interpret this result as normal/abnormal. NRBC x10^3 (test code = 2860659245) See_Comment [Automated messa ge] The system which generated this result transmitted reference range: 10*3/?L. The reference range was not used to interpret this result as normal/abnormal. GRAN MAT (NEUT) % (test code = 770-8) 49.6 % IMM GRAN % (test code = 1837000772) 0.50 % LYMPH % (test code = 736-9) 38.2 % MONO % (test code = 5905-5) 9.6 % EOS % (test code = 713-8) 1.6 % BASO % (test code = 706-2) 0.5 % GRAN MAT x10^3(ANC) (test code = 3130937450) 3.15 10*3/uL 1.99-6.95 IMM GRAN x10^3 (test code = 2553516599) 0.03 10*3/uL 0.00-0.06 LYMPH x10^3 (test code = 731-0) 2.42 10*3/uL 1.09-3.23 MONO x10^3 (test code = 742-7) 0.61 10*3/uL 0.36-1.02 EOS x10^3 (test code = 711-2) 0.10 10*3/uL 0.06-0.53 BASO x10^3 (test code = 704-7) 0.03 10*3/uL 0.01-0.09 Lab Interpretation (test code = 46065-6) [facility]normal [facility] [id number] 03:49:29* Test Item Value Reference Range Interpretation Comme nts TROPONIN I (test code = 3562810429) 0.002 ng/mL <=0.034 GERMÁN (test code = [...] of biotin. Lab Interpretation (test code = 60291-1) Normal [facility]. METABOLIC PANEL (05072)2022-11-28 03:37:50* Test Item Value Reference Range Interpretation Comme nts NA (test code = 0493885833) 139 mmol/L 135-145 K (test code = 5678795267) 4.9 mmol/L 3.5-5.0 CL (test code = 7315056963) 101 mmol/L 98-108 CO2 TOTAL (test code = 6929890509) 31 mmol/L 23-31 AGAP (test code = 9281135385) 7 2-16 BUN (test code = 7345571643) 18 mg/dL 7-23 GLUCOSE (test code = 1732142001) 110 mg/dL 70-110 CREATININE (test code = 2340214961) 0.64 mg/dL 0.60-1.25 TOTAL BILI (test code = 7132891513) 0.6 mg/dL 0.1-1.1 CALCIUM (test code = 2023606458) 9.2 mg/dL 8.6-10.6 T PROTEIN (test code = 2232488140) 7.3 g/dL 6.3-8.2 ALBUMIN (test code = 4243984834) 4.6 g/dL 3.5-5.0 ALK PHOS (test code = 7810689769) 55 U/L 34-122 ALTv (test code = 1742-6) 32 U/L 5-50 AST(SGOT) (test code = 4206123537) 28 U/L 13-40 eGFR (test code = 5620669506) 131.3 mL/min/1.73m2 GERMÁN (test code = GERMÁN) [...] or urine or abnormalities in imaging tests). [facility] [id number] 18:37:451. No acute cardiopulmonary abnormalities are identified. RL: 212 ORDERING PHYSICIAN: MARGOT OLSEN CLINICAL HISTORY: cough TECHNIQUE: 2 view radiographs of the chest were performed. COMPARISON: none FINDINGS: Single similar calcified granuloma right lower lobe. Otherwise the lungsare expanded and clear. No evidence of pleural effusions or pneumothoracesare identified. The cardiomediastinal silhouette is within normal limits.No acute osseous abnormalities are identified. [facility], Radiant Results Inft User - 02/16/2021 1:38 [...] acute cardiopulmonary abnormalities are identified. RL: 2121 [facility]"
[2024-08-23] MEDS ORDERED: KETOROLAC 30 MG/ML INJ ONE (09:15)
--- NOTE | 2024-08-23 09:37 | RAD REPORT ---
EXAM: CT brain without contrast HISTORY: Headache COMPARISON: 2023 TECHNIQUE: Multiple contiguous axial images were obtained and a CT of the brain without contrast.. Sagittal and coronal reconstruction performed. Automated exposure control, adjustment of the mA and/or kV according to patient size, and/or iterative reconstruction. Unless otherwise specified, incidental f indings do not require dedicated imaging follow-up FINDINGS: An intracranial bleed is not seen Ventricles are normal caliber No extra-axial fluid collection noted No significant hypodensity within the brain No fluid within the visualized sinuses or mastoids noted. IMPRESSION: No acute intracranial abnormality noted. If the patient continues to have symptoms to suggest an acute intracranial abnormality then MRI of th e brain would be recommended.
[2024-08-23 09:54] LABS: Absolute Lymphocytes (CBC) 1.4 K/uL (0.7-4.9); Absolute Monocytes 0.4 K/uL (0.1-1.3); Absolute Neutrophil 4.1 K/uL (1.8-8.0); Basophils % 0.6 % (0-1.3); Eosinophils % 0.7 % (0-4.4); Hematocrit 44.9 % (39.6-49.0); Hemoglobin 15.1 g/dL (13.6-17.9); Lymphocytes % 22.8 % (15.3-44.8); MCH 31.2 pg (27.0-35.0); MCHC 33.7 g/dL (32.0-36.0); MCV 92.8 fL (80-100); MPV 8.2 fL (7.6-11.3); Monocytes % 7.5 % (3.3-12.3); Neutrophils % 68.4 % (41.7-73.7); Nucleated Red Blood Cells % 0.1 % (0-0); Platelets 216 thou/uL (152-406); RBC Red Blood Cell Count 4.83 M/uL (4.33-5.43); Red Cell Distribution Width 13.6 % (12.1-15.2)
[2024-08-23 10:10] LABS: Albumin 3.9 g/dL (3.4-5.0); Albumin/Globulin Ratio 1.1 (1.1-1.8); Bilirubin Direct 0.2 mg/dL (0-0.2); Bilirubin Indirect, Calculated 0.5 mg/dL (0.2-0.8); Bilirubin Total 0.7 mg/dL (0.2-1.0); Globulin 3.6 g/dL (2.3-3.5); Protein, Total 7.5 g/dL (6.4-8.2)
[2024-08-23 10:24] LABS: PT Prothrombin Time 12.5 SECONDS (9.4-12.5); PTT, Activated Partial Thromb 37.3 SECONDS (24.3-36.9); Protime INR 1.19
--- NOTE | 2024-08-23 10:32 | ER ---
Nurse's Notes [facility] Name: Isaac Sparks Jr Age: 53 yrs Sex: Male : 1970 Arrival Date: 08/23/2024 Time: 08:44 Bed 13 Private MD: Diagnosis: Generalized headache Presentation: 08/23 08:56 Chief complaint: Frontal headache, dizziness, and low back pain x 2 weeks. Coronavirus hb screen: At this time, the client does not indicate any symptoms associated with coronavirus-19. Ebola Screen: No symptoms or risks identified at this time. Initial Sepsis Screen: Does the patient meet any 2 criteria? No. Patient's initial sepsis screen is negative. Does the patient have a suspected source of infection? No. Patient's initial sepsis screen is negative. Risk Assessment: Do you want to hurt yourself or someone else? Patient reports no desire to harm self or others. Onset of symptoms was August 02, 2024. 08:56 Method Of Arrival: Ambulatory hb 08:56 Acuity: RACHID 3 hb Historical: - Allergies: 08:57 No Known Allergies; hb - Home Meds: 08:57 metformin 500 mg Oral tablet 2 times per day [Active]; amlodipine 2.5 mg tablet daily hb [Active]; atorvastatin 20 mg oral tablet daily [Active]; aspirin 81 mg Oral tablet,chewable daily [Active]; - PMHx: 08:57 Hypertension; Diabetes - NIDDM; High Cholesterol; hb - PSHx: 08:57 None; hb - Immunization history:: Adult Immunizations up to date. - Infectious Disease History:: Denies. - Social history:: Smoking status: Patient denies any tobacco usage or history of. Screenin:47 [facility] ED Fall Risk Assessment (Adult) History of falling in the last 3 months, kc6 including since admission No falls in past 3 months (0 pts) Confusion or Disorientation No (0 pts) Intoxicated or Sedated No (0 pts) Impaired Gait No (0 pts) Mobility Assist Device Used No (0 pt) Altered Elimination No (0 pt) Score/Fall Risk Level 0 - 2 = Low Risk Oriented to surroundings, Maintained a safe environment, Educated pt \T\ family on fall prevention, incl call for assistance when getting out of bed. Abuse screen: Denies threats or abuse. Denies injuries from another. Nutritional screening: No deficits noted. Tuberculosis screening: No symptoms or risk factors identified. Assessment: 09:47 General: Appears in no apparent distress. comfortable, well groomed, well developed, kc6 Behavior is calm, cooperative, appropriate for age. Pain: Complains of pain in base of the skull and back. Neuro: Level of Consciousness is awake, alert, obeys commands, Oriented to person, place, time, situation, Appropriate for age Reports dizziness, headache. Cardiovascular: Capillary refill < 3 seconds. Respiratory: Airway is patent Trachea midline Respiratory effort is even, unlabored, Respiratory pattern is regular, symmetrical. GI: No signs and/or symptoms were reported involving the gastrointestinal system. : No signs and/or symptoms were reported regarding the genitourinary system. EENT: No signs and/or symptoms were reported regarding the EENT system. Derm: No signs and/or symptoms reported regarding the dermatologic system. Skin is intact, is healthy with good turgor, Skin is pink, warm \T\ dry. Musculoskeletal: No signs and/or symptoms reported regarding the musculoskeletal system. Circulation, motion, and sensation intact. Range of motion: intact in all extremities. 10:27 Reassessment: Patient appears in no apparent distress at this time. No changes from kc6 previously documented assessment. Patient and/or family updated on plan of care and expected duration. Pain level reassessed. Patient is alert, oriented x 3, equal unlabored respirations, skin warm/dry/pink. Vital Signs: 08:56 BP 146 / 105; Pulse 69; Resp 19; Temp 98.3(O); Pulse Ox 100% on R/A; Weight 97.52 kg; hb Height 6 ft. 0 in. ; Pain 7/10; 10:28 BP 128 / 95; Pulse 68; Resp 16 S; Pulse Ox 97% on R/A; kc6 08:56 Body Mass Index 29.16 (97.52 kg, 182.88 cm) hb 08:56 Pain Scale: Adult hb ED Course: 08:48 Patient arrived in ED. sj2 08:54 Lyly Daniel, TIFFANY is Primary Nurse. kc6 08:57 Triage completed. hb 09:02 Padmaja Munoz MD is Attending Physician. sp3 09:28 CT Head Brain wo Cont In Process Unspecified. EDMS 09:47 Inserted saline lock: 20 gauge in right antecubital area, using aseptic technique. kc6 Blood collected. Flushed with 10 mL NS. 09:47 Patient has correct armband on for positive identification. Bed in low position. Call kc6 light in reach. Side rails up X2. library monitor on. Pulse ox on. NIBP on. Door closed. Noise minimized. Lights dimmed. Pillow given. 09:47 Arm band placed on. kc6 10:51 No provider procedures requiring assistance completed. IV discontinued, intact, kc6 bleeding controlled, No redness/swelling at site. Pressure dressing applied. Administered Medications: :47 Drug: Ketorolac IVP 30 mg IVP once Route: IVP; Site: right antecubital; kc6 10:28 Follow up: Response: No adverse reaction kc6 Medication: 10:52 VIS not applicable for this client. kc6 Outcome: 10:32 Discharge ordered by . key3 10:51 Discharged to home ambulatory, kc6 10:51 Condition: good 10:51 Discharge instructions given to patient, Instructed on discharge instructions, follow up and referral plans. no drinking with medication, no driving heavy equipment, medication usage, Demonstrated understanding of instructions, follow-up care, medications, Prescriptions given X 1, 10:52 Patient left the ED. kc6 Signatures: Dispatcher [employer] EDMS Khadra Win RN Padmaja Hodges MD MD sp3 Lyly Daniel RN RN kc6 David Child 2
--- NOTE | 2024-08-23 10:32 | EDPHYS ---
Physician Documentation [facility] Name: Isaac Sparks Jr Age: 53 yrs Sex: Male : 1970 Arrival Date: 08/23/2024 Time: 08:44 Bed 13 Private MD: ED Physician Padmaja Munoz HPI: 08/23 09:15 This 53 yrs old Male presents to ER via Ambulatory with complaints of sp3 Headache, Dizziness, Neck and Upper Back Pain. 09:15 53-year-old male with history of hypertension, diabetes, hyperlipidemia presents with sp3 headache, neck pain for the last 3 to 4 days waxing and waning in nature. He denies any trauma, vision changes, fever, chest pain, shortness of breath, known sick contacts, numbness or tingling, other neurosymptoms, or any other signs or symptoms on ROS at this time. Patient has had vertigo in the past including a visit here in mid [address] scan of the head was negative and laboratory values were normal.. Historical: - Allergies: 08:57 No Known Allergies; hb - Home Meds: 08:57 metformin 500 mg Oral tablet 2 times per day [Active]; amlodipine 2.5 mg tablet daily hb [Active]; atorvastatin 20 mg oral tablet daily [Active]; aspirin 81 mg Oral tablet,chewable daily [Active]; - PMHx: 08:57 Hypertension; Diabetes - NIDDM; High Cholesterol; hb - PSHx: 08:57 None; hb - Immunization history:: Adult Immunizations up to date. - Infectious Disease History:: Denies. - Social history:: Smoking status: Patient denies any tobacco usage or history of. ROS: 09:16 Constitutional: Negative for fever, chills, and weight loss, Eyes: Negative for injury, sp3 pain, redness, and discharge, ENT: Negative for injury, pain, and discharge, Neck: Negative for injury, pain, and swelling, Cardiovascular: Negative for chest pain, palpitations, and edema, Respiratory: Negative for shortness of breath, cough, wheezing, and pleuritic chest pain, Abdomen/GI: Negative for abdominal pain, nausea, vomiting, diarrhea, and constipation, Back: Negative for injury and pain, MS/Extremity: Negative for injury and deformity, Skin: Negative for injury, rash, and discoloration, Psych: Negative for depression, anxiety, suicide ideation, homicidal ideation, and hallucinations, Allergy/Immunology: Negative for hives, rash, and allergies, Endocrine: Negative for neck swelling, polydipsia, polyuria, polyphagia, and marked weight changes, Hematologic/Lymphatic: Negative for swollen nodes, abnormal bleeding, and unusual bruising, 09:16 All other systems are negative, Exam: 09:16 Constitutional: This is a well developed, well nourished patient who is awake, alert, sp3 and in no acute distress. Head/Face: Normocephalic, atraumatic. Eyes: Pupils equal round and reactive to light, extra-ocular motions intact. Lids and lashes normal. Conjunctiva and sclera are non-icteric and not injected. Cornea within normal limits. Periorbital areas with no swelling, redness, or edema. ENT: Nares patent. No nasal discharge, no septal abnormalities noted. External auditory canals are clear. Oropharynx with no redness, swelling, or masses, exudates, or evidence of obstruction, uvula midline. Mucous membranes moist. Neck: Trachea midline, no thyromegaly or masses palpated, and no cervical lymphadenopathy. Supple, full range of motion without nuchal rigidity, or vertebral point tenderness. No Meningismus. Chest/axilla: Normal chest wall appearance and motion. Nontender with no deformity. No lesions are appreciated. Cardiovascular: Regular rate and rhythm with a normal S1 and S2. No gallops, murmurs, or rubs. Normal PMI, no JVD. No pulse deficits. Respiratory: Lungs have equal breath sounds bilaterally, clear to auscultation and percussion. No rales, rhonchi or wheezes noted. No increased work of breathing, no retractions or nasal flaring. Abdomen/GI: Soft, non-tender, with normal bowel sounds. No distension or tympany. No guarding or rebound. No evidence of tenderness throughout. Back: No spinal tenderness. No costovertebral tenderness. Full range of motion. Skin: Warm, dry with normal turgor. Normal color with no rashes, no lesions, and no evidence of cellulitis. MS/ Extremity: Pulses equal, no cyanosis. Neurovascular intact. Full, normal range of motion. Neuro: Awake and alert, GCS 15, oriented to person, place, time, and situation. Cranial nerves II-XII grossly intact. Motor strength 5/5 in all extremities. Sensory grossly intact. Cerebellar exam normal. Normal gait. Psych: Awake, alert, with orientation to person, place and time. Behavior, mood, and affect are within normal limits. Vital Signs: 08:56 BP 146 / 105; Pulse 69; Resp 19; Temp 98.3(O); Pulse Ox 100% on R/A; Weight 97.52 kg; hb Height 6 ft. 0 in. ; Pain 7/10; 10:28 BP 128 / 95; Pulse 68; Resp 16 S; Pulse Ox 97% on R/A; kc6 08:56 Body Mass Index 29.16 (97.52 kg, 182.88 cm) hb 08:56 Pain Scale: Adult hb MDM: 09:02 Medical Screening Exam initiated sp3 09:17 Data reviewed: vital signs, nurses notes, old medical records, lab test result(s), sp3 radiologic studies. ED course: 53-year-old male with PMH above now with headache for 4 days. Differential diagnosis includes nonspecific headache, tension headache, migraine, intracranial pathology including bleed, other new space-occupying issue since last CT, among others. Will obtain CT scan of the head, general labs and supportive care. Ketorolac IV for pain control. Will watch blood pressure as initial blood pressure was 146/105. Hypertension induced headache also on differential. Disposition pending workup and patient course.. 10:30 ED course: Patient improved headache almost fully gone. CT scan negative and labs sp3 normal. Offered him stronger pain medication but he is driving. We will discharge him on tramadol with follow-up to his PCP Dr.Mitesh Munoz and follow-up neurology.. 08/23 09:13 Order name: Basic Metabolic Panel; Complete Time: 10:23 sp3 08/23 09:13 Order name: CBC with Diff; Complete Time: 10: sp3 08/23 09:13 Order name: Hepatic Function; Complete Time: 10:3 08/23 09:13 Order name: Magnesium; Complete Time: 10: sp3 08/23 09:13 Order name: Protime (+inr); Complete Time: 10: sp3 08/23 09:13 Order name: Ptt, Activated; Complete Time: 10: sp3 08/23 09:13 Order name: CT Head Brain wo Cont; Complete Time: 09:37 sp3 08/23 09:13 Order name: IV Saline Lock; Complete Time: 09:47 sp3 08/23 09:13 Order name: Labs collected and sent; Complete Time: 09:47 sp3 Administered Medications: 09:47 Drug: Ketorolac IVP 30 mg IVP once Route: IVP; Site: right antecubital; kc6 10:28 Follow up: Response: No adverse reaction kc6 Disposition Summary: 08/23/24 10:32 Discharge Ordered Notes: Location: Home sp3 Condition: Stable sp3 Diagnosis - Generalized headache sp3 Followup: sp3 - With: Private Physician - When: Upon discharge from the Emergency Department - Reason: Continuance of care Discharge Instructions: - Discharge Summary Sheet sp3 - General Headache Without Cause sp3 Forms: - Medication Reconciliation Form sp3 - Antibiotic Education sp3 - Prescription Opioid Use sp3 - Patient Portal Instructions sp3 - Leadership Thank You Letter sp3 - Work release form kc6 Prescriptions: - Tramadol 50 mg Oral Tablet - take 1 tablet ORAL route every 8 hours as needed; 12 tablet; Refills: 0, sp3 Product Selection Permitted Signatures: Dispatcher [employer] EDMS Khadra Win RN RN Padmaja Munoz MD MD sp3 Lyly Daniel RN RN kc6 Corrections: (The following items were deleted from the chart) 09:13 09:13 BASIC METABOLIC PANEL+C.LAB.BRZ ordered. EDMS EDMS 09:13 09:13 CBC+H.LAB.BRZ ordered. EDMS EDMS 09:13 09:13 HEPATIC FUNCTION+C.LAB.BRZ ordered. EDMS EDMS 09:13 09:13 MAGNESIUM+C.LAB.BRZ ordered. EDMS EDMS 09:13 09:13 PROTIME (+INR)+COAG.LAB.BRZ ordered. EDMS EDMS 09:13 09:13 PTT, ACTIVATED+COAG.LAB.BRZ ordered. EDMS EDMS 09:13 09:13 Head Brain Wo Cont+CT.RAD.BRZ ordered. EDMS EDMS 09:16 09:16 Constitutional: Negative for fever, chills, and weight loss, Eyes: Negative for sp3 injury, pain, redness, and discharge, ENT: Negative for injury, pain, and discharge, Neck: Negative for injury, pain, and swelling, Cardiovascular: Negative for chest pain, palpitations, and edema, Respiratory: Negative for shortness of breath, cough, wheezing, and pleuritic chest pain, Abdomen/GI: Negative for abdominal pain, nausea, vomiting, diarrhea, and constipation, Back: Negative for injury and pain, MS/Extremity: Negative for injury and deformity, Skin: Negative for injury, rash, and discoloration, Neuro: Negative for headache, weakness, numbness, tingling, and seizure, Psych: Negative for depression, anxiety, suicide ideation, homicidal ideation, and hallucinations, Allergy/Immunology: Negative for hives, rash, and allergies, Endocrine: Negative for neck swelling, polydipsia, polyuria, polyphagia, and marked weight changes, Hematologic/Lymphatic: Negative for swollen nodes, abnormal bleeding, and unusual bruising, sp3
[2024-08-23 11:48] VITALS: TEMP 98.3
[2024-08-23 11:49] VITALS: BP 128/95; O2SAT 97
== END 2024-08-23 10:52 | disposition home or self-care (01) ==
LOC: ER 08:44
DX: R51.9 Headache, unspecified (principal); E11.9 Type 2 diabetes mellitus without complications; I10 Essential (primary) hypertension
CPT/HCPCS: 36415; 70450; 80048; 80076; 83735; 85025; 85610; 85730; 93005; 96374; 99285

== ENCOUNTER 2025-04-21 13:12 | Emergency (ER) | payer BC ==
--- OUTSIDE RECORDS SUMMARY | 2025-04-21 13:17 | XMS REPORT | Continuity of Care Document ---
Author Name Unknown Address [address] [facility] [address] [place] [address] [facility] Address [address] [facility] [place] [address] Care Team Providers Care Car Dispatcher Name Role Phone Augustus LUQUE, Michela Stephenson Primary Care Physician Macy Munoz Attending Clinician Unavailable Anthony Schuler Attending Clinician Unavailable ORTEGA PICKENS Attending Clinician Unavail able ORTEGA PICKENS Attending Clinician Unavail able MARGOT OLSEN Attending Clinician Unavailab Margot Banerjee DO Attending Clinician [phone] LAY RODRÍGUEZ Attending Clinician Unavailable LAY RODRÍGUEZ Attending Clinician Unavailable KSENIA WYATT Attending Clinician Unavailable Ksenia Wyatt MD Attending Clinician [phone] LAUREN BERRY Attending Clinician UnavailLauren Wise MD Attending Clinician [phone] Michela Morataya MD Attending Clinician [phone] MICHELA MORATAYA Attending Clinician Unava ilable LAB90 Attending Clinician Unavailable Doctor Unassigned, [place] Attending Clinician U navailable Lab, Adc Fam Pob I Attending Clinician Unavailab Ethel Stoll Attending Clinician [phone] Macy Munoz Admitting Clinician Unavailable KSENIA WYATT Admitting Clinician Unavailable LAUREN BERRY Admitting Clinician Unavailabl e Payers Payer Name Policy Type Policy Number Effective Date Expirati on Date Source [facility] STATE [id number] 2018 00:00:00 AESELAM O [id number] 2015 00:00:00 Problems Condition Name Condition Details Condition Category Status Onset Date Resolution Date Last Treatment Date Treating Clinician Comments Source Other chest pain Other chest pain Disease Active 11-27 00:00: 00 [facility] Left knee pain Left knee pain Disease Active 10-28 00:00: 00 [facility] Left knee pain Left knee pain Disease Active 10-28 00:00: 00 [facility] No known active problems No known active problems Disease Radha Antonio Allergies, Adverse Reactions, Alerts Allergy Name Allergy Type Status Severity Reaction(s) Onset Date Inactive Date Treating Clinician Comments Source NO KNOWN ALLERGIE S Drug Class Active [facility] Social History Social Habit Start Date Stop Date Quantity Comments Source Gender identity [facility] Sexual orientation [facility] History of Social function 2023-07-27 00:00:00 2023-07-27 00:00:00 [facility] Alcohol intake 2023-07-27 00:00:00 2023-07-27 00:00:00 0 /d [facility] Alcoholic beverage intake 2023-07-27 00:00:00 2023-07-27 00:00:00 0 /d [facility] Exposure to SARS-CoV-2 (event) 2022-11-17 00:00:00 2022-11-27 21:20:00 Not sure [facility] Tobacco use and exposure 2017-04-25 00:00:00 2017-04-25 00:00:00 Smokeless tobacco non-user [facility] Sex Assigned At 1970 00:00:00 1970 00:00:00 Radha Antonio Smoking Status Start Date Stop Date Source Never smoked tobacco [facility] Medications Ordered Medication Name Filled Medication Name Start Date Stop Date Current Medication? Ordering Clinician Indication Dosage Frequency Signature (SIG) Comments Components Source NaCl 0.9% (NS) bolus infusion 1,000 mL 07-27 19:00: 00 07-27 19:19 :00 No 1000mL at 999 mL/hr, 1,000 mL, IV Infusion, ONCE, 1 dose, On Maryann 07/27/23 at 1300, EDUARD [facility] diazePAM (VALIUM) injection 5 mg 07-27 18:15: 00 07-27 18:36 :00 No 5mg 5 mg, Slow IV Push, ONCE, 1 dose, On Maryann 07/27/23 at 1215, STAT [facility] NaCl 0.9% (NS) bolus infusion 1,000 mL 07-27 18:15: 00 07-27 18:56 :00 No 1000mL at 999 mL/hr, 1,000 mL, IV Infusion, ONCE, 1 dose, On Maryann 07/27/23 at 1215, [facility] meclizine (TRAVEL-EAS E (MECLIZINE) ) tablet 25 mg 07-27 17:30: 00 07-27 17:24 :00 No 25mg 25 mg, Oral, ONCE, 1 dose, On Maryann 07/27/23 at 1130, [facility] amLODIPine 2.5 mg tablet 07-27 14:27: 32 Yes 2.5mg Take 1 tablet by mouth in the morning. [facility] iopamidol (ISOVUE 370-500 mL) injection 100 mL 02-10 12:45: 00 02-10 12:45 :00 No [id number] 100mL 100 mL, Intravenou s, ONCE, 1 dose, On Mon02/10/23 at 0745, Routine [facility] aspirin tablet 325 mg 11-28 03:45: 00 11-28 03:45 :00 No 325mg 325 mg, Oral, ONCE, 1 dose, On Mon11/27/22 at 2245, Routine [facility] ketorolac (TORADOL) injection 30 mg 11-28 03:30: 00 11-28 02:57 :00 No 30mg 30 mg, Slow IV Push, ONCE, 1 dose, On 11/27/22 at 2230, Routine [facility] NaCl 0.9% (NS) bolus infusion 1,000 mL 11-28 02:45: 00 11-28 04:00 :00 No 1000mL at 999 mL/hr, 1,000 mL, IV Infusion, ONCE, 1 dose, On 11/27/22 at 2145, STAT [facility] nitroglycer in (NITROL) 2 % ointment 0.5 Inch 11-28 02:45: 00 11-28 03:05 :00 No .5[in_u s] 0.5 Inch, Transderma l (Apply To Skin), ONCE, 1 dose, On 11/27/22 at 2145, EDUARD [facility] cyclobenzap rine 5 mg tablet 11-27 00:00: 00 07-27 00:00 :00 No [id number] 5mg Take 1 tablet by mouth in the morning and 1 tablet at noon and 1 tablet in the evening. [facility] doxycycline hyclate 100 mg capsule 11-27 00:00: 00 12-05 04:59 :00 No [id number] 100mg Take 1 capsule by mouth in the morning and 1 capsule in the evening. Do all this for 7 days. [facility] ibuprofen 800 mg tablet 11-27 00:00: 00 12-03 04:59 :00 No [id number] 800mg Take 1 tablet by mouth every 8 (eight) hours as needed for Pain (scale 4-6) for up to 5 days. [facility] Aspirin (Aspirin 81) 81 MG oral Tablet Delayed Response 08-20 13:36: 39 Yes 81mg Take 81 mg by mouth daily Radha Antonio Amlodipine Besylate 2.5 MG oral Tablet 2020-07-09 00:00: 00 Yes Radha Antonio methylPREDN ISolone 4 MG oral Tablet Therapy Pack 03-30 00:00: 00 Yes [id number] 1{ap} Take 1 ap by mouth See Admin Instructio ns Use as directed Radha Antonio Cyclobenzap rine HCl 10 MG oral Tablet 03-30 00:00: 00 Yes [id number] 10mg Q.[id number] 3D Take 1 tablet (10 mg total) [...] 30 mg, Intramuscu lar, ONCE, 1 dose, [facility] 02/16/21 at 1430, EDUARD
Fa culty member approving Restricted medication : MARGOT OLSEN [facility] Triamcinolo ne Acetonide 55 MCG/ACT nasal Aerosol 02-04 00:00: 00 Yes Radha Antonio Metformin HCl 1000 MG oral Tablet 12-17 00:00: 00 Yes 1{tbl} Take 1 tablet by mouth 2 times daily Radha Antonio Atorvastati n Calcium 20 MG oral Tablet 12-16 00:00: 00 Yes 1{tbl} Take 1 tablet by mouth daily Radha Antonio azithromyci n (ZITHROMAX Z-AP) 250 mg tablet 2016-07 00:00: 00 07-27 00:00 :00 No [id number] Take 500 mg day 1, then 250 mg days 2 to 5. [facility] fluticasone (FLONASE) 50 mcg/actuati on nasal spray 2016-07 0 00:00: 00 07-27 00:00 :00 No [id number] 2{spray } Use 2 Sprays in each nostril daily. [facility] metFORMIN (GLUCOPHAGE ) 500 mg tablet 10-26 00:00: 00 Yes [facility] atorvastati n (LIPITOR) 10 mg tablet 10-26 00:00: 00 Yes [facility] lisinopril (PRINIVIL,Z ESTRIL) 5 mg tablet 10-26 00:00: 00 07-27 00:00 :00 No [facility] acetaminoph en-codeine (TYLENOL #3) 300-30 mg tablet 10-26 00:00: 00 07-27 00:00 :00 No [facility] omeprazole (PRILOSEC) 20 mg capsule 09-23 00:00: 00 07-27 00:00 :00 No 20mg Take 1 Cap by mouth daily. [facility] Vital Signs Vital Name Observation Time Observation Value Comments S ource Systolic blood pressure 2023-07-27 19:30:00 128 [facility]Hg[facility] Di[facility] blood pressure 2023-07-27 19:30:00 91 mm[Hg[facility] Heart rate 2023-07-27 19:30:00 54 /min [facility] Respiratory rate 2023-07-27 19:30:00 19 /min [facility] Oxygen saturation in Arterial blood by Pulse oximetry 2023-07-27 19:30:00 99 /min [facility] Body temperature 2023-07-27 19:00:00 36.67 Leila [facility] Body height 2023-07-27 17:07:00 182.9 cm [facility] Body weight 2023-07-27 17:07:00 97.523 kg [facility] BMI 2023-07-27 17:07:00 29.16 kg/m2 [facility] Systolic blood pressure 2023-02-10 12:30:00 123 mm[Hg] [facility] Diastolic blood pressure 2023-02-10 12:30:00 76 mm[Hg] [facility] Heart rate 2023-02-10 12:30:00 62 /min [facility] Respiratory rate 2023-02-10 12:30:00 18 /min [facility] Oxygen saturation in Arterial blood by Pulse oximetry 2023-02-10 12:30:00 100 /min [facility] Body temperature 2023-02-10 10:31:00 36.72 Leila [facility] Body height 2023-02-10 10:31:00 182.9 cm [facility] Body weight 2023-02-10 10:31:00 99.338 kg [facility] BMI 2023-02-10 10:31:00 29.70 kg/m2 [facility] Systolic blood pressure 2022-11-28 05:00:00 122 mm[Hg] [facility] Diastolic blood pressure 2022-11-28 05:00:00 75 mm[Hg] [facility] Heart rate 2022-11-28 05:00:00 57 /min [facility] Respiratory rate 2022-11-28 05:00:00 19 /min [facility] Oxygen saturation in Arterial blood by Pulse oximetry 2022-11-28 05:00:00 97 /min [facility] Body temperature 2022-11-28 02:20:00 36.89 Leila [facility] Systolic blood pressure 2021-08-20 19:35:00 127 mm[Hg] Radha Betancourtac ry Diastolic blood pressure 2021-08-20 19:35:00 90 mm[Hg] Radha Betancourtac ry Heart rate 2021-08-20 19:35:00 73 /min Ashlyn Antonio Body temperature 2021-08-20 19:35:00 37.06 Leila Radha Antonio Respiratory rate 2021-08-20 19:35:00 15 /min Radha Antonio Body height 2021-08-20 19:35:00 182.9 cm Marissa Antonio Body weight 2021-08-20 19:35:00 99.791 kg Marissa Antonio BMI 2021-08-20 19:35:00 29.84 kg/m2 Marissa Antonio Systolic blood pressure 2021-02-16 17:42:00 154 mm[Hg] [facility] Diastolic blood pressure 2021-02-16 17:42:00 84 mm[Hg] [facility] Heart rate 2021-02-16 17:42:00 69 /min [facility] Body temperature 2021-02-16 17:42:00 36.78 Leila [facility] Respiratory rate 2021-02-16 17:42:00 18 /min [facility] Body weight 2021-02-16 17:42:00 104.327 kg [facility] BMI 2021-02-16 17:42:00 31.19 kg/m2 [facility] Oxygen saturation in Arterial blood by Pulse oximetry 2021-02-16 17:42:00 99 /min [facility] Procedures Procedure Date / Time Performed Performing Clinician Source COMP. METABOLIC PANEL ([id number]) 2023-07-27 17:33:00 Margot Olsen [facility] CBC WITH DIFF 2023-07-27 17:33:[address] [facility] POCT GLUCOSE (AUTOMATED) 2023-07-27 17:12:00 Margot Olsen [facility] CONSENT/REFUSAL FOR DIAGNOSIS AND TREATMENT 2023-07-27 16:56:31 Doctor Unassigned, [place] [facility] CT CHEST PULMONARY ANGIOGRAM 2023-02-10 11:47:25 Ksenia Wyatt [facility] XR CHEST 2 VW 2023-02-10 11:09:31 Ksenia Wyatt [facility] COMP. METABOLIC PANEL ([id number]) 2023-02-10 10:54:00 Ksenia Wyatt [facility] CBC WITH DIFF 2023-02-10 10:54:00 Ksenia Wyatt [facility] PROTHROMBIN TIME / INR 2023-02-10 10:54:00 Chuck Wyatt [facility] ACTIVATED PARTIAL THRMPLAS MELVIN 2023-02-10 10:54:00 Ksenia Wyatt [facility] CONSENT/REFUSAL FOR DIAGNOSIS AND TREATMENT 2023-02-10 10:16:12 Doctor Unassigned, [place] [facility] XR CHEST 2 VW 2022-11-28 04:27:17 [facility] 2022-11-28 03:38:00 Lauren Berry Un [facility] TROPONIN I 2022-11-28 02:48:00 Lauren Berry Uni [facility] COMP. METABOLIC PANEL ([id number]) 2022-11-28 02:48:00 Lauren Berry [facility] CONSENT/REFUSAL FOR DIAGNOSIS AND TREATMENT 2022-11-28 02:11:26 Doctor Unassigned, [place] [facility] NOTICE OF PRIVACY PRACTICES 2022-11-28 02:10:55 Doctor Unassigned, [place] [facility] ASSIGNMENT OF BENEFITS 2021-02-16 18:34:07 Docto r Unassigned, [place] [facility] XR CHEST 2 VW 2021-02-16 18:08:44 Margot Olsen [facility] NOTICE OF PRIVACY PRACTICES 2021-02-16 17:55:08 Doctor Unassigned, [place] [facility] CONSENT/REFUSAL FOR DIAGNOSIS AND TREATMENT 2021-02-16 17:36:23 Doctor Unassigned, [place] [facility] Encounters Start Date/Time End Date/Time Encounter Type Admission Type Attending [facility] Care Facility Care Department Encounter ID Source 2024-10-10 08:28:01 [id number] 2024-09-25 10:56:00 [facility] [id number] [facility] 2024-09-20 11:54:00 [facility] [id number] [facility] 2024-09-12 08:37:01 [id number] [facility] 2024-09-03 13:37:01 Outpatient MUNOZ, MACY [facility] [id number] [facility] 2024-08-27 21:01:00 Outpatient Ganga, Anthony [facility] [id number] [facility] 2024-08-26 14:43:00 Outpatient Munoz, Macy [facility] [id number] [facility] 2024-04-23 13:50:00 Outpatient Munoz, Macy [facility] [id number] [facility] 2024-03-05 10:13:00 Outpatient Munoz, Macy [facility] [id number] [facility] 2024-01-28 13:57:00 Outpatient Munoz, [facility] [id number] [facility] 2023-10-06 10:01:00 Outpatient Munoz, Macy [facility] [id number] [facility] 2023-09-25 09:27:01 Outpatient Munoz, Macy [facility] [id number] [facility] 2023-07-14 10:09:01 Outpatient Munoz, Macy [facility] [id number] [facility] 2023-02-06 16:07:01 Outpatient Munoz, Macy [facility] [id number] [facility] 2022 08:29:02 Outpatient Munoz, Mayc [facility] [id number] [facility] 2022-11-01 14:52:03 Outpatient Munoz, M[facility] [id number] [facility] 2021-05-24 11:08:[address] [facility] [id number] [facility] 2024-10-16 00:00:00 2024-10-16 10:59:34 Letter (Out) Macy Munoz [facility] [id number] 350.1.13.10 4.2.7.2.686 [id number] [facility] 2024-09-24 13:00:00 2024-09-24 13:00:00 Outpatient ORTEGA FRENCH [facility] [id number] [facility] 2023-07-27 11:12:00 2023-07-27 14:27:00 Emergency X PRETTYTANRA [facility] ERT [id number] [facility] 2023-07-27 11:12:00 2023-07-27 14:27:00 Emergency Margot Olsen [facility] 1.2840.114 350.1.13.10 4.2.7.2.686 [id number] [facility] 2023-02-10 05:34:00 2023-02-10 07:36:00 Emergency X KSENIA WYATT [facility] ERT [id number] [facility] 2023-02-10 05:34:00 2023-02-10 07:36:00 Emergency Ksenia Wyatt [facility] 1.2840.114 350.1.13.10 4.2.7.2.686 [id number] [facility] 2022-11-27 21:22:00 2022-11-28 00:21:00 Emergency X LAUREN BERRY [facility] ERT [id number] [facility] 2022-11-27 21:22:00 2022-11-28 00:21:00 Emergency Lauren Berry [facility] 1.2840.114 350.1.13.10 4.2.7.2.686 [id number] [facility] 2021-08-20 13:45:00 2021-08-20 14:00:00 Office Visit Michela Morataya 1.0.114 350.1.13.13 1.2.7.2.686 [id number] Radha Daviesaleta 2021-04-09 11:30:00 2021-04-09 11:30:00 Outpatient MICHELA MORATAYA [facility] [id number] [facility] 2021-04-06 11:30:00 2021-04-06 11:30:00 Outpatient MICHELA MORATAYA [facility] [id number] [facility] 2021-03-30 11:30:00 2021-03-30 11:30:00 Outpatient MICHELA MORATAYA [facility] [id number] [facility] 2021-03-17 00:00:00 2021-03-17 00:00:00 Outpatient EVERT MORATAYASIDNEY SUE [id number] Radha [facility] 2021-03-12 00:00:00 2021-03-12 00:00:00 Outpatient MICHELA MORATAYA RADHA SUE [id number] Radha [facility] 2021-03-10 10:15:00 2021-03-10 10:15:00 Outpatient LAB90 RADHA SUE [id number] Radha [facility] 2021-03-10 10:15:00 2021-03-10 10:15:00 Outpatient LAB90 RADHA SUE [id number] Radha [facility] 2021-03-10 09:30:00 2021-03-10 09:30:00 Outpatient MICHELA MORATAYA RADHA SUE [id number] [facility] 2021-02-16 12:45:00 2021-02-16 14:47:00 Emergency Margot Olsen [facility] 1..114 350.1.13.10 4.2.7.2.686 [id number] [facility] 2021-02-16 00:00:00 2021-02-16 00:00:00 Orders Only Doctor Unassigned, [place] [facility] 1.84.114 350.1.13.10 4.2.7.2.686 [id number] [facility] 2020-05-08 09:40:00 2020-05-08 09:40:[address] [facility] [id number] [facility] 2020-05-06 13:29:21 2020-05-06 13:49:21 Laboratory Only Lab, [facility] Nicole Ethel Tiera [facility] [address] 1.840.114 350.1.13.10 4.2.7.2.686 [id number] [facility] 2020-05-06 13:29:21 2020-05-06 13:49:21 Laboratory Only Lab, [facility] 1..114 350.1.13.10 4.2.7.2.686 [id number] 2020-05-06 13:20:00 2020-05-06 13:20:[address] [facility] [id number] [facility] 2020-05-06 00:00:00 2020-05-06 00:00:00 Letter (Out) Doctor Unassigned, [place] [facility] 1.2840.114 350.1.13.10 4.2.7.2.686 [id number] [facility] 2020-05-06 00:00:00 2020-05-06 00:00:00 Letter (Out) Doctor Unassigned, [place] [facility] 1.2840.114 350.1.13.10 4.2.7.2.686 [id number] Results Test Description Test Time Test Comments Results Result Co mments Source [facility] WITH [id number] 17:47:53* Test Item Value Reference Range Interpretation [...] 34.3 g/dL 31.2-35.0 RDW-SD (test code = 63120-9) 42.0 fL 38.5-51.6 RDW-CV (test code = 788-0) 12.2 % 12.1-15.4 PLT (test code = 777-3) 235 See_Comment [Automated messa ge] The system which generated this result transmitted reference range: 150 - 328 10*3/?L. The reference range was not used to interpret this result as normal/abnormal. MPV (test code = 73424-8) 10.2 fL 9.8-13.0 NRBC/100 WBC (test code = 1086364977) 0.0 See_Comment [Automated [facility] ssage] The system which generated this result transmitted reference range: 0.0 - 10.0 /100 WBCs. The reference range was not used to interpret this result as normal/abnormal. NRBC x10^3 (test code = 5571354998) See_Comment [Automated messa ge] The system which generated this result transmitted reference range: 10*3/?L. The reference range was not used to interpret this result as normal/abnormal. GRAN MAT (NEUT) % (test code = 770-8) 59.9 % IMM GRAN % (test code = 4326533785) 0.40 % LYMPH % (test code = 736-9) 30.1 % MONO % (test code = 5905-5) 8.0 % EOS % (test code = 713-8) 0.7 % BASO % (test code = 706-2) 0.9 % GRAN MAT x10^3(ANC) (test code = 5105343725) 3.23 10*3/uL 1.99-6.95 IMM GRAN x10^3 (test code = 9794895347) 0.00-0.06 LYMPH x10^3 (test code = 731-0) 1.62 10*3/uL 1.09-3.23 MONO x10^3 (test code = 742-7) 0.43 10*3/uL 0.36-1.02 EOS x10^3 (test code = 711-2) 0.04 10*3/uL 0.06-0.53 L BASO x10^3 (test code = 704-7) 0.05 10*3/uL 0.01-0.09 Lab Interpretation (test code = 68522-8) [facility] 17:13:23* Test Item Value Reference Range Interpretation Comme [facility] POCT GLU (test code = 8409500219) 97 mg/dL 70-110 Lab Interpretation (test cod e = 83236-0) Normal [facility] WITH [id number] 03:54:30* Test Item Value Reference Range Interpretation Comme [facility] WBC (test code = 6690-2) 6.34 See_Comment [...] 33.0 g/dL 31.2-35.0 RDW-SD (test code = 47721-1) 43.3 fL 38.5-51.6 RDW-CV (test code = 788-0) 12.7 % 12.1-15.4 PLT (test code = 777-3) 200 See_Comment [Automated messa ge] The system which generated this result transmitted reference range: 150 - 328 10*3/?L. The reference range was not used to interpret this result as normal/abnormal. MPV (test code = 21565-9) 10.2 fL 9.8-13.0 NRBC/100 WBC (test code = 9963328325) 0.0 See_Comment [Automated [facility] ssage] The system which generated this result transmitted reference range: 0.0 - 10.0 /100 WBCs. The reference range was not used to interpret this result as normal/abnormal. NRBC x10^3 (test code = 1847858208) See_Comment [Automated messa ge] The system which generated this result transmitted reference range: 10*3/?L. The reference range was not used to interpret this result as normal/abnormal. GRAN MAT (NEUT) % (test code = 770-8) 49.6 % IMM GRAN % (test code = 1880169467) 0.50 % LYMPH % (test code = 736-9) 38.2 % MONO % (test code = 5905-5) 9.6 % EOS % (test code = 713-8) 1.6 % BASO % (test code = 706-2) 0.5 % GRAN MAT x10^3(ANC) (test code = 7645304830) 3.15 10*3/uL 1.99-6.95 IMM GRAN x10^3 (test code = 0413390925) 0.03 10*3/uL 0.00-0.06 LYMPH x10^3 (test code = 731-0) 2.42 10*3/uL 1.09-3.23 MONO x10^3 (test code = 742-7) 0.61 10*3/uL 0.36-1.02 EOS x10^3 (test code = 711-2) 0.10 10*3/uL 0.06-0.53 BASO x10^3 (test code = 704-7) 0.03 10*3/uL 0.01-0.09 Lab Interpretation (test code = 35762-5) [facility]normal [facility] [id number] 03:49:29* Test Item Value Reference Range Interpretation Comme nts TROPONIN I (test code = 0738636813) 0.002 ng/mL <=0.034 GERMÁN (test code = [...] of biotin. Lab Interpretation (test code = 85483-1) Normal [facility] (65311)2022-11-28 03:37:50* Test Item Value Reference Range Interpretation Comme nts NA (test code = 1137325007) 139 mmol/L 135-145 K (test code = 9965379983) 4.9 mmol/L 3.5-5.0 CL (test code = 2146060922) 101 mmol/L 98-108 CO2 TOTAL (test code = 0859335010) 31 mmol/L 23-31 AGAP (test code = 7723826377) 7 2-16 BUN (test code = 2892042531) 18 mg/dL 7-23 GLUCOSE (test code = 3332824735) 110 mg/dL 70-110 CREATININE (test code = 0177398366) 0.64 mg/dL 0.60-1.25 TOTAL BILI (test code = 2604200647) 0.6 mg/dL 0.1-1.1 CALCIUM (test code = 7505573941) 9.2 mg/dL 8.6-10.6 T PROTEIN (test code = 1983888449) 7.3 g/dL 6.3-8.2 ALBUMIN (test code = 8957808160) 4.6 g/dL 3.5-5.0 ALK PHOS (test code = 3477468392) 55 U/L 34-122 ALTv (test code = 1742-6) 32 U/L 5-50 AST(SGOT) (test code = 5384935224) 28 U/L 13-40 eGFR (test code = 8185245186) 131.3 mL/min/1.73m2 GERMÁN (test code = GERMÁN) [...] or urine or abnormalities in imaging tests). [facility] [id number] 18:37:451. No acute cardiopulmonary abnormalities are identified. RL: 2121 ORDERING PHYSICIAN: MARGOT OLSEN CLINICAL HISTORY: cough TECHNIQUE: 2 view radiographs of the chest were performed. COMPARISON: none FINDINGS: Single similar calcified granuloma right lower lobe. Otherwise the lungsare expanded and clear. No evidence of pleural effusions or pneumothoracesare identified. The cardiomediastinal silhouette is within normal limits.No acute osseous abnormalities are identified. [facility], Radiant Results Inft User - 02/16/2021 1:38 [...] acute cardiopulmonary abnormalities are identified. RL: [facility] Date/Time Note Provider Source 2023-07-27 12:59:23 Report given to TIFFANY Barajas F Sargent RN [facility] 2023-07-27 11:37:10 Safety Note Bed low/locked, side rails up x2, call light within reach, patient verbalized understanding of how/when to use. Kelli Sargent RN S SAGGER [facility] 2023-07-27 11:05:57 Pt arrived via private car with c/o dizziness that started "around 9 this morning". States that the dizziness is worse when he moves his head. F Covington RN [facility] 2023-07-27 10:55:00 [facility] Emergency Department Note Patient Name: Isaac Sparks Date of : 1970 52 year old male Treatment Room: TX2/TX2 Primary Care Physician: PATIENT DOES NOT HAVE A PCP Patient Escorted by: Self [9] Mode of Arrival: Personal means [1] EMS Treatment Prior to ED Arrival: [facility] treatment: Medication (comment) [facility] treatment comments: diabetic meds Travel and Exposure Screening: Symptoms Does patient have any of these symptoms?: (not recorded) Exposure Screening Has patient had contact with someone with a communicable disease in the last month?: (not recorded) Diseases exposed to:: (not recorded) Is Patient ?: (not recorded) Exposure Date: (not recorded) Chief Complaint: Chief Complaint Patient presents with Dizziness History of Present Illness: The patient presents from home for evaluation for [...] high blood pressure as well as high cholesterol. Here for evaluation. Past Medical History/Immunizations: Past Medical History: Diagnosis Date Diabetes mellitus Esophageal reflux Hyperlipidemia Hypertension Left knee pain 10/29/2015 Tetanus received in last 5 years: Unknown Childhood immunizations: Up-to-date Allergies: No Known Allergies Past Social History: Tobacco Use Never smoked or used smokeless tobacco. Past Surgical History: Past Surgical History: Procedure Laterality Date OTHER Lft knee 2, Right knee 1. Review of Systems: Review of Systems Constitutional: Negative for chills and fever. Respiratory: Negative for cough and shortness of breath. Cardiovascular: Negative for chest pain. Gastrointestinal: Negative for abdominal pain and vomiting. Genitourinary: Negative for dysuria. Musculoskeletal: Negative for arthralgias, neck pain and neck stiffness. Skin: Negative for wound. Neurological: Positive for dizziness. Psychiatric/Behavioral: Negative for agitation. Endocrine: Negative for goiter. Physical Exam: ED Triage Vitals [07/27/23 1107] Weight 97.5 kg (215 lb) Actual or estimated Estimated by patient/family report Height 1.829 m (6') BP (!) 148/99 Pulse 75 Resp 16 Temp 36.8 ?C (98.2 ?F) Temp source Oral SpO2 99 % Measured on Room air Physical Exam Vitals and nursing note reviewed. Constitutional: Appearance: Normal appearance. He is normal weight. HENT: Head: Normocephalic and atraumatic. Cardiovascular: Rate and Rhythm: Normal rate and regular rhythm. Pulses: Normal pulses. Pulmonary: Effort: Pulmonary effort is normal. No respiratory distress. Breath sounds: No stridor. No wheezing or rhonchi. Abdominal: General: There is no distension. Palpations: Abdomen is soft. There is no mass. Tenderness: There is no abdominal tenderness. There is no guarding. Hernia: No hernia is present. Musculoskeletal: General: Normal range of motion. Cervical back: Normal range of motion and neck supple. Skin: General: Skin is warm and dry. Neurological: General: No focal deficit present. Mental Status: He is alert and oriented to person, place, and time. Comments: Speech is clear. No facial asymmetry. Handgrip right was left. Muscle strength is 5/5 to upper extremities and lower extremities bilaterally. Radiology: No orders to display Lab Results: Lab Results CBC WITH DIFF - Abnormal Result Value Ref Range WBC 5.39 4.20 - 10.70 10*3/?L RBC 4.78 4.26 - 5.52 10*6/?L HGB 15.3 12.2 - 16.4 g/dL HCT 44.6 38.4 - 49.3 % MCV 93.3 81.7 - 95.6 fL MCH 32.0 26.1 - 32.7 pg MCHC 34.3 31.2 - 35.0 g/dL RDW-SD 42.0 38.5 - 51.6 fL RDW-CV 12.2 12.1 - 15.4 % PLT 235 150 - 328 10*3/?L MPV 10.2 9.8 - 13.0 fL NRBC/100 WBC 0.0 0.0 - 10.0 /100 WBCs NRBC x10 3 <0.01 10*3/?L GRAN MAT (NEUT) % 59.9 % IMM GRAN % 0.40 % LYMPH % 30.1 % MONO % 8.0 % EOS % 0.7 % BASO % 0.9 % GRAN MAT x10 3 (ANC) 3.23 1.99 - 6.95 10*3/uL IMM GRAN x10 3 <0.03 0.00 - 0.06 10*3/uL LYMPH x10 3 1.62 1.09 - 3.23 10*3/uL MONO x10 3 0.43 0.36 - 1.02 10*3/uL EOS x10 3 0.04 (*) 0.06 - 0.53 10*3/uL BASO x10 3 0.05 0.01 - 0.09 10*3/uL POCT GLUCOSE (AUTOMATED) - Normal POCT GLU 97 70 - 110 mg/dL COMP. METABOLIC PANEL (07481) NA 137 135 - 145 mmol/L K 4.1 3.5 - 5.0 mmol/L CL 100 98 - 108 mmol/L CO2 TOTAL 27 23 - 31 mmol/L AGAP 10 2 - 16 BUN 20 7 - 23 mg/dL GLUCOSE 110 70 - 110 mg/dL CREATININE 0.70 0.60 - 1.25 mg/dL TOTAL BILI 0.7 0.1 - 1.1 mg/dL CALCIUM 9.7 8.6 - 10.6 mg/dL T PROTEIN 8.2 6.3 - 8.2 g/dL ALBUMIN 4.8 3.5 - 5.0 g/dL ALK PHOS 91 34 - 122 U/L ALTv 38 5 - 50 U/L AST(SGOT) 32 13 - 40 U/L eGFR 110.2 mL/min/1.73m2 EKG: If EKG completed, see Procedure Note. Orders and Treatments: Orders Placed This Encounter Procedures POCT GLUCOSE (AUTOMATED) CBC WITH DIFF COMP. METABOLIC PANEL (31311) Orders Placed This Encounter Medications meclizine (TRAVEL-EASE (MECLIZINE)) tablet 25 mg NaCl 0.9% (NS) bolus infusion 1,000 mL amLODIPine 2.5 mg tablet NaCl 0.9% (NS) bolus infusion 1,000 mL diazePAM (VALIUM) injection 5 mg First Provider Eval: ED Events Date/Time Event User Comments 07/27/23 1111 Medical Screening Begins MARGOT OLSEN DO -- 07/27/23 1111 First Provider Evaluation MARGOT OLSEN DO -- ED COURSE Diagnosis/Impression as of 07/27/23 1355 Vertigo Procedures: Procedures MDM: Medical Decision Making The patient presents from home for evaluation for [...] He denies episodes like this in the past. Vital signs are stable in the ER. His speech is clear. No facial symmetry. Handgrip right close left. Muscle strength is 5/5 to upper extremities and lower extremities bilaterally. His heart is regular rhythm. No concern for stroke based on his current presentation. Suspect benign vertigo. Will check laboratory studies and give the patient oral Antivert. Will continue to monitor the patient here in the ER. Final disposition pending. 1213 -the patient is doing well from ER. He feels better with sitting up and looking around the room but upon standing the dizziness returns. His laboratory studies are unremarkable. Will give the patient IV Valium as well as IV fluids. Will continue to monitor the patient here in the ER. Anticipate discharge home later. 1354 - the patient is doing well here in the ER. His vertigo has resolved. He is able to get up and ambulate around the department without reproduction of his symptoms. He remained stable here in the ER and is okay for discharge home with PCP follow-up. Problems Addressed: Vertigo: acute illness or injury Amount and/or Complexity of Data Reviewed Labs: ordered. Decision-making details documented in ED Course. Risk OTC drugs. Prescription drug management. Parenteral controlled substances. Flowsheet Documentation: Scoring Tools: No data recorded Disposition/Condition: ED Disposition ED Disposition Disch - Home Condition Stable Comment -- Discharge Medications: Patient's Medications START taking these medications No medications on file CONTINUE taking these medications which have NOT CHANGED AMLODIPINE 2.5 MG TABLET Take 1 tablet by mouth in the morning. ATORVASTATIN (LIPITOR) 10 MG TABLET METFORMIN (GLUCOPHAGE) 500 MG TABLET START taking Modified Medications as Prescribed No medications on file STOP taking these medications ACETAMINOPHEN-CODEINE (TYLENOL #3) 300-30 MG TABLET AZITHROMYCIN (ZITHROMAX Z-AP) 250 MG TABLET Take 500 mg day 1, then 250 mg days 2 to 5. CYCLOBENZAPRINE 5 MG TABLET Take 1 tablet by mouth in the morning and 1 tablet at noon and 1 tablet in the evening. FLUTICASONE (FLONASE) 50 MCG/ACTUATION NASAL SPRAY Use 2 Sprays in each nostril daily. LISINOPRIL (PRINIVIL,ZESTRIL) 5 MG TABLET OMEPRAZOLE (PRILOSEC) 20 MG CAPSULE Take 1 Cap by mouth daily. Follow-up: Electronically signed by: Margot Olsen DO 07/27/[address] [facility] 2023-02-10 07:33:54 Formatting of this n ote might be different from the original. 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 Sailaja Mi RN [facility] 2023-02-10 07:06:45 Formatting of this n ote might be different from the original. Report to Shmuel ALLEN [facility] 2023-02-10 05:29:11 Formatting of this n ote might be different from the original. Woke up at 4 am, during regular morning routine cleared throat and coughed what appeared to be by pt's picture small dark red blood clot. Pt stated it's the first time this has happened. Only 1 time this morning. Li Daniel RN [facility] 2023-02-10 05:16:00 Formatting of this n ote is different from the original. EMERGENCY DEPARTMENT ENCOUNTER [facility] Patient Name: Isaac Sparks Date of : 1970 52 year old Exam Room:[place] [address] Primary Care Physician: PATIENT DOES NOT HAVE A PCP Pre- Hospital Patient Escorted by: Self [9] Mode of Arrival: Personal means [1] EMS Treatment Prior to ED Arrival: [facility]PER treatment: None ED Events Date/Time Event User Comments 02/10/23518 Medical Screening Begins KSENIA WYATT MD -- 02/10/23518 First Provider Evaluation KSENIA WYATT MD -- Chief Complaint Chief Complaint Patient presents with Other Cough up blood ED Triage Notes Li Daniel, RN 02/10/2023 05:31 Woke up at 4 [...] any bleeding disorders. The patient presents for evaluation. History provided by: Patient Cough Cough characteristics: Productive Sputum characteristics: Bloody Onset quality: Sudden Duration: 1 hour Timing: Constant Chronicity: New Relieved by: Nothing Worsened by: Nothing Associated symptoms: no chest pain, no chills, no eye discharge, no fever, no headaches, no shortness of breath and no wheezing Past Medical History / Immunizations Past Medical History: Diagnosis Date Diabetes mellitus Esophageal reflux Hyperlipidemia Hypertension Left knee pain 10/29/2015 Tetanus received in last 5 years: No Childhood immunizations: Up-to-date Past Surgical History Past Surgical History: Procedure Laterality Date OTHER Lft knee 2, Right knee 1. Allergies No Known Allergies Social History Tobacco Use Never smoked or used [...] problems. All other systems reviewed and are negative. Endocrine: Endocrine negative Physical Exam ED Triage Vitals [02/10/23 0531] Weight 99.3 kg (219 lb) Actual or estimated Estimated by patient/family report Height 1.829 m (6') BP 129/90 Pulse 65 Resp 16 Temp 36.7 ?C (98.1 ?F) Temp source Oral SpO2 100 % Measured on Room air Physical Exam Vitals reviewed. Constitutional: Appearance: He is well-developed. HENT: [...] normal. Labs Lab Results COMP. METABOLIC PANEL (85982) - Abnormal Result Value Ref Range NA [...] No acute cardiopulmonary disease RL: 7802 AFC: 22560 End of report Orders and Treatments Orders Placed This Encounter Procedures XR CHEST [address] CHEST PULMONARY ANGIOGRAM CBC WITH DIFF ACTIVATED PARTIAL THRMPLAS MELVIN COMP. METABOLIC PANEL (10191) PROTHROMBIN TIME / INR Orders Placed This Encounter Medications iopamidol (ISOVUE 370-500 mL) injection 100 mL Procedures Procedures Notes & MDM Patient was evaluated for an emergency medical condition related to Other (Cough up blood) History and/or review of systems is limited by:History limited: None. Diagnosis/Impression as of 02/10/23 0731 Hemoptysis Medical Decision Making Amount and/or Complexity of Data Reviewed Labs: ordered. Radiology: ordered. Risk Prescription drug management. Limitations to patient care and compliance: none. Assessment/Summary: The patient is a 52-year-old male who presents for 1 episode hemoptysis. Hematological chemistry studies are within acceptable limits. CT of the chest is negative for PE or any masses. I referred the patient to pulmonary medicine as an outpatient. He is amenable to the plan. He will be discharged to follow-up. He can return for any questions or concerns. History, physical exam findings, results of visit, differential diagnosis, medication regimens and plan of future care have been considered. Additional MDM may be found in the ED course. Differential diagnosis considered and final disposition made based on information gathered during evaluation and may not be completely ruled out or specifically listed. Vital signs were rechecked before final disposition. Diagnosis Final diagnoses: [R04.2] Hemoptysis (Primary) Disposition & [...] Does Not Have A Relationship: PCP - [address] [address] Ksenia Wyatt Jr., MD Clinical Agriculture Laborer [facility] Emergency Department [employer] is used frequently and may produce errors. Promptly contact for obvious discrepancies. Ksenia Wyatt MD 02/10/2349 [facility]
[2025-04-21] MEDS ORDERED: ASPIRIN 81 MG CHEWABLE TABLET ONE (14:21)
[2025-04-21 14:23] LABS: Absolute Lymphocytes (CBC) 1.4 K/uL (0.7-4.9); Hematocrit 46.0 % (39.6-49.0); Hemoglobin 15.6 g/dL (13.6-17.9); MCH 30.9 pg (27.0-35.0); MCHC 33.8 g/dL (32.0-36.0); MCV 91.4 fL (80-100); MPV 8.5 fL (7.6-11.3); Nucleated RBC Absolute Count 0.0 (0-0); Nucleated Red Blood Cells % 0.0 % (0-0); RBC Red Blood Cell Count 5.04 M/uL (4.33-5.43); White Blood Count 6.10 thou/uL (4.3-10.9)
[2025-04-21 14:29] LABS: PT Prothrombin Time 13.6 SECONDS (10-13.0); Protime INR 1.21
[2025-04-21 14:44] LABS: ALT/SGPT 29.0 U/L (16-61); AST/SGOT 17.0 U/L (15-37); Albumin 4.1 g/dL (3.4-5.0); Albumin/Globulin Ratio 1.1 (1.1-1.8); Alkaline Phosphatase 66.0 U/L (45-117); Anion Gap 8.7 mEq/L (5.0-15.0); BUN Blood Urea Nitrogen 12.0 mg/dL (7-18); Bilirubin Indirect, Calculated 0.5 mg/dL (0.2-0.8); Globulin 3.7 g/dL (2.3-3.5); Glucose Level 105.0 mg/dL (74-106); Magnesium 2.2 mg/dL (1.6-2.4); NT PRO-BNP 21.0 pg/mL (<125); Potassium 3.7 mEq/L (3.5-5.1); Troponin High Sensitivity 3.5 pg/mL (<58.9)
--- NOTE | 2025-04-21 15:03 | RAD REPORT ---
Procedure: Chest Single View HISTORY: Chest pain COMPARISON: 2020 FINDINGS: The lungs appear clear of acute infiltrate.. Calcified granuloma right lung No significant pleural effusion noted. The heart is normal size. IMPRESSION: No acute abnormality is displayed.
[2025-04-21] MEDS ORDERED: IPRATROPIUM BROM 0.5MG/2.5ML ONE (15:14)
[2025-04-21] MEDS ORDERED: ALBUTEROL 2.5 MG/3 ML NEB SOL ONE (15:14)
--- NOTE | 2025-04-21 17:13 | ER ---
Nurse's Notes [facility] Name: Isaac Sparks Jr Age: 54 yrs Sex: Male : 1970 Arrival Date: 04/21/2025 Time: 13:12 Bed 14 Private MD: Diagnosis: Chest pain, unspecified Presentation: 04/21 13:47 Chief complaint: Patient states: CHEST TIGHTNESS AND DIFFICULTY BREATHING THAT COMES dd2 AND GOES X 4 DAYS. PT DENIES RADIATING PAIN. Coronavirus screen: At this time, the client does not indicate any symptoms associated with coronavirus-19. Ebola Screen: No symptoms or risks identified at this time. Initial Sepsis Screen: Does the patient meet any 2 criteria? No. Patient's initial sepsis screen is negative. Does the patient have a suspected source of infection? No. Patient's initial sepsis screen is negative. Risk Assessment: Do you want to hurt yourself or someone else? Patient reports no desire to harm self or others. Onset of symptoms was April 17, 2025. 13:47 Method Of Arrival: Ambulatory dd2 13:47 Acuity: RACHID 3 dd2 Triage Assessment: 13:49 General: Appears in no apparent distress. uncomfortable, Behavior is cooperative, dd2 appropriate for age, anxious. Pain: Complains of pain in mid-sternal area Pain currently is 7 out of 10 on a pain scale. Is intermittent. Cardiovascular: Reports chest pain, shortness of breath, Chest pain is described as mild, Pain is 7 out of 10 on a pain scale. is aggravated by STRESS. Historical: - Allergies: 13:49 No Known Allergies; dd2 - PMHx: 13:49 Diabetes - NIDDM; High Cholesterol; Hypertension; dd2 - PSHx: 13:49 MAHIN KNEE (Hypertension); BACK SX (Hypertension); dd2 - Immunization history:: Adult Immunizations unknown. - Infectious Disease History:: Denies. - Social history:: Smoking status: Patient denies any tobacco usage or history of. Screenin:30 [facility] ED Fall Risk Assessment (Adult) History of falling in the last 3 months, ar8 including since admission No falls in past 3 months (0 pts) Confusion or Disorientation No (0 pts) Intoxicated or Sedated No (0 pts) Impaired Gait No (0 pts) Mobility Assist Device Used No (0 pt) Altered Elimination No (0 pt) Score/Fall Risk Level 0 - 2 = Low Risk Oriented to surroundings, Maintained a safe environment. Abuse screen: Denies threats or abuse. Nutritional screening: No deficits noted. Tuberculosis screening: No symptoms or risk factors identified. Assessment: 14:33 General: Appears in no apparent distress. Behavior is calm, cooperative. Pain: ar8 Complains of pain in chest Pain does not radiate. Pain currently is 2 out of 10 on a pain scale. Quality of pain is described as pressure, Pain began 4 days ago. Neuro: Level of Consciousness is awake, alert, obeys commands, Oriented to person, place, time, situation, Pre Press Operator are equal bilaterally Moves all extremities. Full function Gait is steady, Speech is normal, Facial symmetry appears normal. Cardiovascular: Reports chest pain, shortness of breath, Patient's skin is warm and dry. Rhythm is sinus rhythm. Respiratory: Reports shortness of breath Airway is patent Respiratory effort is even, unlabored, Respiratory pattern is regular, symmetrical, No respiratory distress noted. GI: No signs and/or symptoms were reported involving the gastrointestinal system. : No signs and/or symptoms were reported regarding the genitourinary system. EENT: No signs and/or symptoms were reported regarding the EENT system. Derm: No signs and/or symptoms reported regarding the dermatologic system. Musculoskeletal: No signs and/or symptoms reported regarding the musculoskeletal system. 15:08 Reassessment: Patient appears in no apparent distress at this time. Patient and/or jb4 family updated on plan of care and expected duration. Pain level reassessed. Patient is alert, oriented x 3, equal unlabored respirations, skin warm/dry/pink. 16:33 Reassessment: Patient appears in no apparent distress at this time. Patient and/or jb4 family updated on plan of care and expected duration. Pain level reassessed. Patient is alert, oriented x 3, equal unlabored respirations, skin warm/dry/pink. 17:33 Reassessment: Patient appears in no apparent distress at this time. Patient and/or jb4 family updated on plan of care and expected duration. Pain level reassessed. Patient is alert, oriented x 3, equal unlabored respirations, skin warm/dry/pink. Vital Signs: 13:47 BP 128 / 96; Pulse 69; Resp 16; Temp 97.2; Pulse Ox 100% ; Weight 92.99 kg; Height 6 dd2 ft. 0 in. ; Pain 7/10; 14:30 BP 120 / 84; Pulse 60; Resp 17; Pulse Ox 100% on R/A; Pain 2/10; ar8 15:08 BP 125 / 85; Pulse 63; Resp 18; Pulse Ox 95% on R/A; jb4 16:33 BP 121 / 80; Pulse 84; Resp 20; Pulse Ox 100% on R/A; jb4 17:33 BP 121 / 83; Pulse 83; Resp 16; Pulse Ox 99% on R/A; jb4 13:47 Body Mass Index 27.80 (92.99 kg, 182.88 cm) dd2 13:47 Pain Scale: Adult dd2 14:30 Pain Scale: Adult ar8 Vitals: 16:33 Cardiac Rhythm Assessment Sinus rhythm. jb4 ED Course: 13:24 Patient arrived in ED. cj3 13:27 Olivia Mahan PA-C is PHCP. sb4 13:27 Padmaja Munoz MD is Attending Physician. sb4 13:49 Triage completed. dd2 13:49 Arm band placed on right wrist. dd2 14:18 EKG done, by veterinary surgery technician. reviewed by Olivia Mahan PA-C. ts3 14:18 Initial lab(s) drawn, by pharmacy laboratory technician, sent to lab. Inserted saline lock: 20 gauge in right ts3 antecubital area, using aseptic technique. Blood collected. Flushed with 10 mL NS. 14:28 King Sparks, RN is Primary Nurse. ar8 14:30 Bed in low position. Call light in reach. Side rails up X2. Provided Education on: plan ar8 of care, diagnostics and estimated wait time. Client placed on continuous cardiac and pulse oximetry monitoring. NIBP monitoring applied. 14:30 No provider procedures requiring assistance completed. Patient maintains SpO2 ar8 saturation greater than 95% on room air. 14:41 XRAY Chest (1 view) In Process Unspecified. EDMS 17:12 Bereket Sanders MD is Referral Physician. sb4 17:33 IV discontinued, intact, bleeding controlled, No redness/swelling at site. Pressure jb4 dressing applied. Administered Medications: 14:33 Drug: Aspirin PO Chewable Tablet 324 mg PO once; 81 mg tablets x 4 {Note: Patient ar8 received 243mg of ASA. Patient states he took 81mg this morning.} Route: PO; 15:17 Drug: DuoNeb Nebulize (3:1) (2.5 mg - 0.5 mg) 3 ml Nebulizer once Route: Nebulizer; jb4 Medication: 14:30 VIS not applicable for this client. ar8 Outcome: 17:12 Discharge ordered by . sb4 17:33 Discharged to home ambulatory, jb4 17:33 Condition: stable 17:33 Discharge instructions given to patient, Instructed on discharge instructions, follow up and referral plans. Demonstrated understanding of instructions, follow-up care, 17:34 Patient left the ED. jb4 Signatures: Dispatcher [employer] EDMS Juan Francisco Maxwell RN RN jb4 Olivia Mahan, PABienvenidoC PAOrion sb4 TERESA MOREL RN RN dd2 Yenny Acuna cj3 Shelly Rodríguez ts3 King Sparks RN RN ar8 Corrections: (The following items were deleted from the chart) 14:18 14:18 Inserted ts3 ts3 14:57 14:33 Aspirin PO Chewable Tablet 324 mg PO ar8 ar8 16:34 16:33 BP 121 / 280; Pulse 84bpm; Resp 20bpm; Pulse Ox 100% RA; jb4 jb4
--- NOTE | 2025-04-21 17:13 | EDPHYS ---
Physician Documentation [facility] Name: Isaac Sparks Jr Age: 54 yrs Sex: Male : 1970 Arrival Date: 04/21/2025 Time: 13:12 Bed 14 Private MD: ED Physician Padmaja Munoz HPI: 04/21 16:37 This 54 yrs old Male presents to ER via Ambulatory with complaints of Chest sb4 Tightness. 16:41 Patient reports intermittent chest tightness x 4 days. He states that he thinks it is sb4 worse when he gets anxious or stressed. He denies any radiation of the pain. States that when it comes on, and makes him feel short of breath. He states that he saw his recreational leader about 2 weeks ago and had a negative EKG and echocardiogram. Denies any major cardiac history. Does report a history of hypertension and diabetes but states it is controlled with medication. Historical: - Allergies: 13:49 No Known Allergies; dd2 - PMHx: 13:49 Diabetes - NIDDM; High Cholesterol; Hypertension; dd2 - PSHx: 13:49 MAHIN KNEE (Hypertension); BACK SX (Hypertension); dd2 - Immunization history:: Adult Immunizations unknown. - Infectious Disease History:: Denies. - Social history:: Smoking status: Patient denies any tobacco usage or history of. ROS: 16:41 Constitutional: Negative for fever, chills, and weight loss, sb4 16:41 Cardiovascular: Positive for chest pain, 16:41 All other systems are negative, Exam: 16:41 Constitutional: This is a well developed, well nourished patient who is awake, alert, sb4 and in no acute distress. Head/Face: Normocephalic, atraumatic. Eyes: Extra-ocular motions intact. Periorbital areas with no swelling, redness, or edema. ENT: Mucous membranes moist. Cardiovascular: Regular rate and rhythm with a normal S1 and S2. Respiratory: No increased work of breathing, no retractions or nasal flaring. Abdomen/GI: Soft, non-tender, no distension. Skin: Warm, dry with normal turgor. Normal color with no rashes, no lesions, and no evidence of cellulitis. Vital Signs: 13:47 BP 128 / 96; Pulse 69; Resp 16; Temp 97.2; Pulse Ox 100% ; Weight 92.99 kg; Height 6 dd2 ft. 0 in. ; Pain 7/10; 14:30 BP 120 / 84; Pulse 60; Resp 17; Pulse Ox 100% on R/A; Pain 2/10; ar8 15:08 BP 125 / 85; Pulse 63; Resp 18; Pulse Ox 95% on R/A; jb4 16:33 BP 121 / 80; Pulse 84; Resp 20; Pulse Ox 100% on R/A; jb4 17:33 BP 121 / 83; Pulse 83; Resp 16; Pulse Ox 99% on R/A; jb4 13:47 Body Mass Index 27.80 (92.99 kg, 182.88 cm) dd2 13:47 Pain Scale: Adult dd2 14:30 Pain Scale: Adult ar8 MDM: 13:27 Medical Screening Exam initiated sb4 16:41 Data reviewed: vital signs, nurses notes, lab test result(s), EKG, radiologic studies, sb4 and as a result, I will discharge patient. Consideration of Admission/Observation Escalation of care including admission/observation considered. Scoring Tools HEART Score: History: ECG: Age: Risk Factors: > or = 3 Risk factors for atherosclerotic disease (2), Troponin: Total Score = 3. Counseling: I had a detailed discussion with the patient and/or guardian regarding the historical points, exam findings, and any diagnostic results supporting the discharge/admit diagnosis, lab results, radiology results, the need for outpatient follow up, a recreational leader, to return to the emergency department if symptoms worsen or persist or if there are any questions or concerns that arise at home. 17:13 Special discussion: I discussed with the patient the need to follow-up with the 4 PCP/specialist for the noted incidental finding on X-ray/CT scanning. 04/21 13:50 Order name: Basic Metabolic Panel; Complete Time: 14:47 sb4 04/21 13:50 Order name: CBC with Diff; Complete Time: 14:30 sb4 04/21 13:50 Order name: LFT's; Complete Time: 14:47 sb4 04/21 13:50 Order name: Magnesium; Complete Time: 14:47 sb4 04/21 13:50 Order name: NT PRO-BNP; Complete Time: 14:47 sb4 04/21 13:50 Order name: PT-INR; Complete Time: 14:30 sb4 04/21 13:50 Order name: Troponin HS; Complete Time: 14:47 sb4 04/21 15:33 Order name: Troponin High Sensitivity; Complete Time: 16:58 sb4 04/21 13:50 Order name: XRAY Chest (1 view); Complete Time: 15:05 sb4 04/21 13:50 Order name: Cardiac monitoring; Complete Time: 14:18 sb4 04/21 13:50 Order name: EKG - Nurse/Tech; Complete Time: 14:18 sb4 04/21 13:50 Order name: IV Saline Lock; Complete Time: 14:18 sb4 04/21 13:50 Order name: Labs collected and sent; Complete Time: 14:18 sb4 04/21 13:50 Order name: O2 Per Protocol; Complete Time: 14:18 sb4 04/21 13:50 Order name: O2 Sat Monitoring; Complete Time: 14:18 sb4 EC:33 Rate is 64 beats/min. Rhythm is regular, Normal Sinus Rhythm. IN interval is normal at sb4 200 msec. QRS interval is normal at 100 msec. QT interval is normal at 410 msec. No Q waves. T waves are Normal. No ST changes noted. Clinical impression: Normal ECG. Interpreted by me. Reviewed by me. Administered Medications: 14:33 Drug: Aspirin PO Chewable Tablet 324 mg PO once; 81 mg tablets x 4 {Note: Patient ar8 received 243mg of ASA. Patient states he took 81mg this morning.} Route: PO; 15:17 Drug: DuoNeb Nebulize (3:1) (2.5 mg - 0.5 mg) 3 ml Nebulizer once Route: Nebulizer; jb4 Disposition Summary: 04/21/25 17:12 Discharge Ordered Notes: Location: Home sb4 Problem: an ongoing problem sb4 Symptoms: have improved sb4 Condition: Stable sb4 Diagnosis - Chest pain, unspecified sb4 Followup: sb4 - With: Bereket Sanders MD - When: As needed - Reason: Further diagnostic work-up, Recheck today's complaints, Re-evaluation by your physician Discharge Instructions: - Discharge Summary Sheet sb4 - Nonspecific Chest Pain, Adult, [id number] sb4 Forms: - Patient Portal Instructions sb4 - Leadership Thank You Letter sb4 Signatures: Dispatcher [employer] Juan Francisco Salinas, RN RN jb4 Olivia Mahan PA-C PA-C sb4 TERESA MOREL, RN RN dd2 King Sparks RN RN ar8
[2025-04-21 18:28] VITALS: TEMP 97.2
[2025-04-21 18:36] VITALS: BP 121/83; O2SAT 99
== END 2025-04-21 17:34 | disposition home or self-care (01) ==
LOC: ER 13:12
DX: R07.89 Other chest pain (principal); I10 Essential (primary) hypertension; E11.9 Type 2 diabetes mellitus without complications; E78.00 Pure hypercholesterolemia, unspecified
CPT/HCPCS: 93005; 85025; 80048; 36415; 83735; 85610; 80076; 84484 ×2; 83880; 71045; 99285; J7613; J7644